=== PATIENT | female | born 1960 | race Caucasian/White ===

== ENCOUNTER → 2019-03-20 09:24 | Outpatient (CLI) | payer BC, SELFPAY ==
[2019-03-20 10:23] LABS: Add Manual Diff / Slide Review NO; Basophils Absolute Auto 100 /uL (0-100); Eosinophils Absolute Auto 300 /uL (0-450); Eosinophils Percent Auto 5.1 % (2-4); Hematocrit 42.3 % (36-46); Hemoglobin 14.8 g/dL (12.0-16.0); Lymphocytes Absolute Auto 2100 /uL (1100-4500); Lymphocytes Percent Auto 33.1 % (25-40); Mean Corpuscular HGB Conc 34.9 % (30-36); Mean Corpuscular Hemoglobin 31.1 PG (26-34); Monocytes Absolute Auto 500 /uL (0-900); Neutrophils Absolute Auto 3400 /uL (1500-7000); Neutrophils Percent Auto 52.8 % (50-75); Platelet Count 381 X10^3/uL (150-400); Red Blood Cell Count 4.76 X10^6/uL (4.0-5.2); Red Cell Distribution Width 13.9 % (11.6-14.8); White Blood Cell Count 6.3 X10^3/uL (4.5-11.0)
[2019-03-20 10:35] LABS: Alanine Aminotransferase 17 IU/L (<35); Albumin 4.6 g/dL (3.5-5.0); Albumin Globulin Ratio 1.4 (1.0-2.8); Alkaline Phosphatase 86 U/L (38-126); Aspartate Aminotransferase 23 IU/L (14-36); BUN Creatinine Ratio 24.3 (6-22); Bilirubin Total 0.6 mg/dL (0.2-1.3); Blood Urea Nitrogen 17 mg/dL (7-17); Calcium 10.1 mg/dL (8.4-10.2); Carbon Dioxide 25 mmol/L (22-32); Chloride 103 mmol/L (98-107); Estimated Glomerular Filt Rate > 60.0 mL/min (>60); Globulin 3.3 g/dL (1.7-4.1); Glucose 111 mg/dL (70-100); HEMOLYSIS < 15 (0-50); Lipase 104 U/L (23-300); Potassium 4.2 mmol/L (3.4-5.1); Sodium 138 mmol/L (137-145); Total Protein 7.9 g/dL (6.3-8.2)
[2019-03-20 11:03] LABS: Vitamin D 25 Hydroxy (D3) 35.5 ng/mL (30.0-100.0)
[2019-03-20 11:16] LABS: TSH w/ Reflex to FT4 4.23 uIU/mL (0.47-4.68)
[2019-03-20 11:25] LABS: Vitamin B12 655 pg/mL (239-931)
== END ==
PROVIDERS: PCP Family Medicine; Referring Provider Family Medicine; Visit Provider Family Medicine
DX: Z13.220 Encounter for screening for lipoid disorders (principal); Z13.29 Encounter for screening for other suspected endocrine disorder; E55.9 Vitamin D deficiency, unspecified; R53.83 Other fatigue
CPT/HCPCS: 36415; 80053; 82306; 82607; 83690; 84443; 85025

== ENCOUNTER → 2019-12-13 13:44 | Outpatient (CLI) | payer BC, SELFPAY ==
--- NOTE | 2019-12-13 13:45 | DI.RAD.S_ITS ---
PROCEDURE: XR KNEE RT 3V INDICATIONS: L knee pain x 4-5 months, no trauma TECHNIQUE: 3 views of the knee were acquired. COMPARISON: None. FINDINGS: Bones: No fractures or dislocations. No suspicious bony lesions. Mild tricompartmental knee joint narrowing with periarticular osteophyte formation. Soft tissues: No joint effusion. No suspicious soft tissue calcifications. Chondrocalcinosis. IMPRESSION: 1. Mild tricompartmental knee joint degeneration. 2. Chondrocalcinosis. Differential diagnosis includes but is not limited to hemochromatosis, hyperparathyroidism and CPPD. Dictated by: Myles MCCRACKEN Interpreted: Arpan Joseph MD on 12/13/2019 at 16:54 Approved by: Arpan Joseph M.D. on 12/13/2019 at 17:37
== END ==
PROVIDERS: PCP Registered Nurse Diabetes Educator; Referring Provider Registered Nurse Diabetes Educator; Visit Provider Registered Nurse Diabetes Educator
DX: M25.562 Pain in left knee (principal); M17.12 Unilateral primary osteoarthritis, left knee; M11.262 Other chondrocalcinosis, left knee
CPT/HCPCS: 73562

== ENCOUNTER → 2019-12-25 08:49 | Outpatient (CLI) | payer BC, SELFPAY ==
[2019-12-25 10:28] LABS: Add Manual Diff / Slide Review NO; Basophils Absolute Auto 100 /uL (0-100); Basophils Percent Auto 1.3 % (0-2); Eosinophils Absolute Auto 300 /uL (0-450); Eosinophils Percent Auto 5.4 % (2-4); Hematocrit 43.5 % (36-46); Hemoglobin 14.9 g/dL (12.0-16.0); Lymphocytes Absolute Auto 2100 /uL (1100-4500); Lymphocytes Percent Auto 39.6 % (25-40); Mean Corpuscular HGB Conc 34.4 % (30-36); Mean Corpuscular Hemoglobin 31.5 PG (26-34); Mean Corpuscular Volume 91.8 fL (80-100); Monocytes Absolute Auto 500 /uL (0-900); Monocytes Percent Auto 8.8 % (3-14); Neutrophils Absolute Auto 2400 /uL (1500-7000); Neutrophils Percent Auto 44.9 % (50-75); Platelet Count 383 X10^3/uL (150-400); Red Blood Cell Count 4.74 X10^6/uL (4.0-5.2); Red Cell Distribution Width 13.7 % (11.6-14.8); White Blood Cell Count 5.3 X10^3/uL (4.5-11.0)
[2019-12-25 10:54] LABS: Hemoglobin A1C% w Est Avg Glu 5.3 % (4.0-6.0)
[2019-12-25 10:59] LABS: Alanine Aminotransferase 14 IU/L (<35); Albumin 4.4 g/dL (3.5-5.0); Albumin Globulin Ratio 1.3 (1.0-2.8); Alkaline Phosphatase 70 U/L (38-126); Aspartate Aminotransferase 24 IU/L (14-36); BUN Creatinine Ratio 21.8 (6-22); Bilirubin Total 0.8 mg/dL (0.2-1.3); Blood Urea Nitrogen 19 mg/dL (7-17); Calcium 9.6 mg/dL (8.4-10.2); Carbon Dioxide 28 mmol/L (22-32); Chloride 106 mmol/L (98-107); Cholesterol 240 mg/dL (140-199); Estimated Glomerular Filt Rate > 60.0 mL/min (>60); Globulin 3.4 g/dL (1.7-4.1); Glucose 103 mg/dL (70-100); HDL Cholesterol 54 mg/dL (40-60); HEMOLYSIS < 15 (0-50); LDL Cholesterol Calculated 169 mg/dL (<100); Phosphorous 3.8 mg/dL (2.5-4.5); Potassium 4.1 mmol/L (3.4-5.1); Sodium 140 mmol/L (137-145); Total Protein 7.8 g/dL (6.3-8.2); Triglycerides 86 mg/dL (35-150)
[2019-12-25 14:43] LABS: HEMOLYSIS < 15 (0-50); Iron 145 ug/dL (37-170)
[2019-12-25 14:54] LABS: Percent Iron Saturation 40 % (15-50); Total Iron Binding Capacity 367 ug/dL (265-497); Transferrin 291 mg/dL (206-381)
[2019-12-25 15:17] LABS: TSH w/ Reflex to FT4 6.68 uIU/mL (0.47-4.68)
[2019-12-25 15:53] LABS: Free T4, Direct Thyroxine 1.04 ng/dL (0.78-2.19)
[2019-12-26 09:10] LABS: Calcium 9.8 mg/dL (8.7-10.2); Parathyroid Hormone, Intact 41 pg/mL (15-65)
== END ==
PROVIDERS: PCP Registered Nurse Diabetes Educator; Referring Provider Registered Nurse Diabetes Educator; Visit Provider Registered Nurse Diabetes Educator
DX: Z00.00 Encounter for general adult medical examination without abnormal findings (principal); M11.20 Other chondrocalcinosis, unspecified site; M25.569 Pain in unspecified knee; R73.01 Impaired fasting glucose
CPT/HCPCS: 36415; 80053; 80061; 82310; 83036; 83540; 83550; 83735; 83970; 84100; 84439; 84443; 85025

== ENCOUNTER → 2020-09-14 10:38 | Outpatient (CLI) | payer BC, SELFPAY ==
[2020-09-14 11:17] LABS: COVID19 -Nasal RAPID Negative (Negative)
== END ==
PROVIDERS: PCP Registered Nurse Diabetes Educator; Visit Provider Student in an Organized Health Care Education/Training Program
DX: J02.9 Acute pharyngitis, unspecified (principal); R09.81 Nasal congestion; Z20.822 Contact with and (suspected) exposure to COVID-19
CPT/HCPCS: 87070; 87077; 87635

== ENCOUNTER → 2020-10-03 11:39 | Outpatient (CLI) | payer BC, SELFPAY ==
[2020-10-03 14:09] LABS: COVID-19 CEPHEID PCR (VTM/NP) Negative (Negative)
== END ==
PROVIDERS: PCP Registered Nurse Diabetes Educator; Referring Provider Registered Nurse; Visit Provider Registered Nurse
DX: Z20.822 Contact with and (suspected) exposure to COVID-19 (principal)
CPT/HCPCS: U0003

== ENCOUNTER → 2020-10-03 12:46 | Outpatient (CLI) | payer BC, SELFPAY ==
--- NOTE | 2020-10-03 12:47 | DI.RAD.S_ITS ---
PROCEDURE: XR CHEST 2V INDICATIONS: chest congestion TECHNIQUE: 2 views of the chest were acquired. COMPARISON: None. FINDINGS: Surgical changes and devices: None. Lungs and pleura: Lungs are clear. No pleural effusions or pneumothorax. Mediastinum: Mediastinal contours are normal. Heart size is normal. Bones and chest wall: No suspicious bony abnormalities. Left shoulder anchors. Soft tissues appear unremarkable. IMPRESSION: No acute cardiopulmonary abnormality. Dictated by: Romeo Aquino M.D. on 10/03/2020 at 13:50 Approved by: Romeo Aquino M.D. on 10/03/2020 at 13:51
== END ==
PROVIDERS: PCP Registered Nurse Diabetes Educator; Referring Provider Registered Nurse; Visit Provider Registered Nurse
DX: R09.89 Other specified symptoms and signs involving the circulatory and respiratory systems (principal); Z20.822 Contact with and (suspected) exposure to COVID-19
CPT/HCPCS: 71046; U0003

== ENCOUNTER → 2021-05-26 10:56 | Outpatient (CLI) | payer BC, SELFPAY | PROVIDERS: PCP Registered Nurse Diabetes Educator; Referring Provider Nurse Practitioner Family; Visit Provider Nurse Practitioner Family | DX: R41.840 Attention and concentration deficit (principal) | CPT/HCPCS: 93005; 93010 ==

== ENCOUNTER 2022-01-06 21:36 | Emergency (ER) | payer BC, SELFPAY ==
[2022-01-06 21:47] VITALS: BP 126/67; PULSE 108; RESP 18; TEMP 36.2; O2SAT 97; BMI 33.3
--- NOTE | 2022-01-06 22:00 | DI.RAD.S_ITS ---
PROCEDURE: XR FOOT LT MIN 3V INDICATIONS: Injury TECHNIQUE: 3 views of the foot were acquired. COMPARISON: None. FINDINGS: Bones: No fractures or dislocations. No suspicious bony lesions. Soft tissues: No tibiotalar joint effusion. Achilles tendon appears normal. IMPRESSION: 1. No fracture or dislocation. Dictated by: Jesus Alberto Ballard M.D. on 01/07/2022 at 0:00 Approved by: Jesus Alberto Ballard M.D. on 01/07/2022 at 0:01
--- NOTE | 2022-01-06 23:35 | ED_ITS ---
HPI - Extremity Injury (Lower) General Chief Complaint: Extremity Injury, Lower Stated Complaint: lt. foot pain due to fall Time Seen by Provider: 01/06/22 23:10 Source: patient Mode of arrival: Wheelchair History of Present Illness HPI Narrative: 61-year-old female nonsmoker with noncontributory medical history presents with her in the chief complaint of an accidental injury to the left side of her foot earlier this evening. She was stepping off of a concrete platform and stepped awkwardly on her foot and thinks maybe she twisted a bit but there was no significant drop or high velocity impact. She has increased pain with ambulation and improvement with rest. She denies any pain in her ankle, lower leg or knee. She denies any prodromal symptoms or other potential cause for her fall. She denies any head, neck or back pain as a consequence of her fall Related Data Home Medications Medication Instructions Recorded Confirmed citalopram 20 mg tablet 20 mg PO DAILY 03/20/19 08/26/21 propranolol 10 mg tablet 10 mg PO BID 11/16/19 08/26/21 Previous Rx's Medication Instructions Recorded levothyroxine 25 mcg tablet 25 mcg PO DAILY #60 tabs 12/27/19 Allergies Allergy/AdvReac Type Severity Reaction Status Date / Time No Known Drug Allergies Allergy Verified 08/26/21 10:46 Review of Systems Review of Systems Narrative: GENERAL: Denies chills, fatigue, malaise, fever, sweats. HEENT: Denies sinus pain, ear pain, sore throat, difficulty swallowing, dizziness. RESPIRATORY: Denies dyspnea, cough, wheezing, hemoptysis, sputum. CARDIOVASCULAR: Denies chest pain, palpitations, orthopnea, edema, GASTROINTESTINAL: Denies nausea, vomiting, abdominal pain, diarrhea, constipation, melena. : Denies dysuria, frequency, incontinence, hematuria, urinary retention. MUSCULOSKELETAL: See HP SKIN: Denies rash, skin lesions, or other NEUROLOGIC: Denies weakness, headache, numbness, change in speech, confusion, seizures, incoordination. PSYCHIATRIC: No concerning psychosocial issues. 12 point review of systems is negative except for those stated above Patient History Medical History Abnormal Pap smear of cervix (~1982) Anxiety (~1994) Chest congestion Chondrocalcinosis Chronic back pain Depression (~1994) Dyslipidemia Fatigue Herpes (~1994) History of gastrointestinal disorder (~2014) History of IBS Impaired fasting blood sugar Knee pain Neck pain, chronic Recurrent sinusitis Shoulder pain (~1987) Subclinical hypothyroidism Trigger finger of right thumb Vision disorder Vitamin deficiency Surgical History Anesthesia History of shoulder surgery (~1991) Family History Mother Hypertension Father No problems noted. Social History Smoking Status: Never smoker alcohol intake: current substance use type: does not use Smoking Status: Never smoker alcohol intake frequency: 3 or more drinks per day Alcohol type: hard liquor Substance Use Type: marijuana Exam Narrative Exam Narrative: GEN: AOx3 and in mild distress EYES: Pupils are equal, round, and reactive to light and accommodation. Extraoccular muscles are intact bilaterally. There is no subconjunctival hemorrhage or exudate. CHEST: Lungs are clear to auscultation bilaterally and free of wheezes, rales, or rhonchi. Heart rate is regular rhythm, there are no murmurs, clicks, rubs, or gallops. There is no chest wall tenderness. ABD: Abdomen is soft and nontender. There is no guarding or rebound. Bowel sounds are normal in all 4 quadrants. There is no mass or organomegaly. EXT: Full but painful range of motion of left foot with small area of pinpoint tenderness and some ecchymosis overlying the cuboid. This is closed, isolated and neurovascularly intact no pain over medial or lateral malleoli, negative squeeze test, no pain at proximal fibula SKIN: Warm, pink, and dry. No erythema or rash Initial Vital Signs Initial Vital Signs: Vital Signs Temperature 97.1 F L 01/06/22 21:47 Pulse Rate 108 H 01/06/22 21:47 Respiratory Rate 18 01/06/22 21:47 Blood Pressure 126/67 01/06/22 21:47 Pulse Oximetry 97 01/06/22 21:47 Oxygen Delivery Method 01/06/22 21:47 Procedures Orthopedic Splinting/Casting Injury #1: Side: left Lower Extremity Injury Location: foot Lower Extremity Immobilizer: post-op shoe Other Orthopedic Equipment: crutches Course Orders Ordered: ED Orders 01/06/22 22:00 XR foot LT min 3V Stat Vital Signs Vital signs: Vital Signs - 8 hr 01/06/22 21:47 01/07/22 00:56 Temperature 97.1 F L Pulse Rate 108 H 90 Respiratory Rate 18 16 Blood Pressure 126/67 124/68 Pulse Oximetry 97 97 Oxygen Delivery Method Room Air Room Air MDM - Extremity Injury (Lower) Imaging Data Extremity x-ray #1: Radiologist's Impression: Close Foot X-Ray (Signed) Jesus Alberto Ballard - 01/06/22 Chest X-Ray (Signed) Romeo Aquino - 10/03/20 Knee X-Ray (Signed) Arpan Joseph - 12/13/19 Launch?[address] [address] XRay Report Signed Patient: Princess Rene MR#: [id number] : 1960 Acct:[id number] Age/Sex: 61 / F Date of Service: 01/06/22 Loc: ED Accession Number: [id number] ?? Procedure: XR foot LT min 3V Ordering Provider: Ramos Ryder D.O. PROCEDURE:? XR FOOT LT MIN 3V ? INDICATIONS:? Injury ? TECHNIQUE:? 3 views of the foot were acquired.? ? COMPARISON:? None. ? FINDINGS:? ? Bones:? No fractures or dislocations.? No suspicious bony lesions.? ? Soft tissues:? No tibiotalar joint effusion.? Achilles tendon appears normal.? ? ? IMPRESSION:? ? 1.? No fracture or dislocation. ? ? Dictated by: Jesus Alberto Ballard M.D. on 01/07/2022 at 0:00 ? ? Approved by: Jesus Alberto Ballard M.D. on 01/07/2022 at 0:01? Discharge Plan Departure Patient Disposition: Home Clinical Impression: Foot injury Instructions: DI for Foot Pain Activity Restrictions/Additional Instructions: *You have been diagnosed with [left foot pain, as we discussed there is no evidence of fracture or dislocation on your x-ray] *What to do: *Please continue to take your regular medications as directed. *Please follow up with your primary care provider in 5-7 days, call for an appointment. Let them know you were seen in the Emergency Department and that we ask that you be seen in follow up. We will electronically transmit a record of today's note if your PCP is in our system *Return to Emergency Department if you should have any new, worsening or concerning symptoms Prescriptions: No Action citalopram 20 mg tablet 20 mg PO DAILY levothyroxine 25 mcg tablet 25 mcg PO DAILY Qty: 60 0RF propranolol 10 mg tablet 10 mg PO BID Referrals: Shar William ARNP [Primary Care Provider] - Visit Report Forms: Patient Portal/API
--- NOTE | 2022-01-07 00:30 | PC.NURSE ---
orthopedic shoe applied to the left foot - tolerated well - instructions for use given
--- NOTE | 2022-01-07 00:40 | PC.NURSE ---
Crutch use demonstrated and discussed with patient and family - appropriate repeat demonstration given
[2022-01-07 00:56] VITALS: BP 124/68; PULSE 90; RESP 16; O2SAT 97
== END 2022-01-07 00:53 | disposition home or self-care (01) ==
PROVIDERS: Emergency Provider Emergency Medicine; PCP Registered Nurse Diabetes Educator
DX: S99.922A Unspecified injury of left foot, initial encounter (principal); X50.1XXA Overexertion from prolonged static or awkward postures, initial encounter
CPT/HCPCS: 73630; 99282; 99283

== ENCOUNTER → 2023-01-05 13:03 | Outpatient (CLI) | payer BC, SELFPAY ==
--- NOTE | 2023-01-05 13:05 | DI.RAD.S_ITS ---
PROCEDURE: XR KNEE LT 3V INDICATIONS: eval L knee pain TECHNIQUE: 3 views of the knee were acquired. COMPARISON: [facility], CR, XR KNEE RT 3V, 12/13/2019, 13:39. FINDINGS: Bones: No fractures or dislocations. Mild joint space narrowing. Osteophytic lipping. Degenerative changes are similar to 2020. No suspicious bony lesions. Soft tissues: No joint effusion. Chondrocalcinosis. No suspicious soft tissue calcifications. IMPRESSION: [id number] degenerative changes. Chondrocalcinosis. Dictated by: Romeo Aquino M.D. on 01/05/2023 at 16:25 Approved by: Romeo Aquino M.D. on 01/05/2023 at 16:27
[2023-01-05 14:18] LABS: Add Manual Diff / Slide Review NO; Basophils Absolute Auto 0 /uL (0-100); Basophils Percent Auto 0.5 % (0-2); Eosinophils Absolute Auto 600 /uL (0-450); Eosinophils Percent Auto 11.6 % (2-4); Hematocrit 43.5 % (36-46); Hemoglobin 15.1 g/dL (12.0-16.0); Lymphocytes Absolute Auto 1000 /uL (1100-4500); Lymphocytes Percent Auto 18.1 % (25-40); Mean Corpuscular HGB Conc 34.8 % (30-36); Mean Corpuscular Hemoglobin 30.9 PG (26-34); Mean Corpuscular Volume 88.8 fL (80-100); Monocytes Absolute Auto 400 /uL (0-900); Monocytes Percent Auto 7.1 % (3-14); Neutrophils Absolute Auto 3500 /uL (1500-7000); Neutrophils Percent Auto 62.7 % (50-75); Platelet Count 314 X10^3/uL (150-400); Red Cell Distribution Width 13.9 % (11.6-14.8); White Blood Cell Count 5.5 X10^3/uL (4.5-11.0)
[2023-01-05 14:26] LABS: Hemoglobin A1C% w Est Avg Glu 5.6 % (4.0-6.0)
[2023-01-05 14:32] LABS: Erythrocyte Sedimentation Rate 43 MM/HR (0-20)
[2023-01-05 14:50] LABS: Alanine Aminotransferase 32 IU/L (<35); Albumin 4.1 g/dL (3.5-5.0); Albumin Globulin Ratio 1.2 (1.0-2.8); Alkaline Phosphatase 137 U/L (38-126); Aspartate Aminotransferase 44 IU/L (14-36); BUN Creatinine Ratio 16.7 (6-22); Bilirubin Total 0.6 mg/dL (0.2-1.3); Blood Urea Nitrogen 17 mg/dL (7-17); Calcium 9.9 mg/dL (8.4-10.2); Carbon Dioxide 26 mmol/L (22-32); Chloride 96 mmol/L (98-107); Cholesterol 255 mg/dL (140-199); Estimated Glomerular Filt Rate > 60 mL/min (>60); Globulin 3.4 g/dL (1.7-4.1); Glucose 111 mg/dL (80-110); HDL Cholesterol 49 mg/dL (40-60); HEMOLYSIS < 15 (0-50); LDL Cholesterol Calculated 176 mg/dL (<100); Sodium 133 mmol/L (137-145); Total Protein 7.5 g/dL (6.3-8.2); Triglycerides 149 mg/dL (35-150)
[2023-01-05 15:04] LABS: C-Reactive Protein Quant 14.5 mg/dL (<1.0)
[2023-01-05 15:05] LABS: Free T4, Direct Thyroxine 1.32 ng/dL (0.78-2.19)
[2023-01-05 15:18] LABS: Thyroid Stimulating Hormone 13.8 uIU/mL (0.47-4.68)
[2023-01-05 15:44] LABS: Appearance Urine UA CLEAR; Bilirubin Urine UA 2+ (NEGATIVE); Color Urine UA YELLOW; Glucose Urine UA NEGATIVE (Negative); Ketones Urine UA 1+ (NEGATIVE); Leukocyte Esterase Urine UA NEGATIVE (NEGATIVE); Nitrite Urine UA NEGATIVE (Negative); Occult Blood Urine UA NEGATIVE (Negative); Protein Urine UA 2+ (Negative); Specific Gravity Urine UA >=1.030 (1.000-1.035)
[2023-01-05 16:01] LABS: RBC Urine 0-1/HPF (0-5/HPF); WBC Urine 0-1/HPF (0-5/HPF)
[2023-01-05 16:02] LABS: Bacteria Urine Many (>30); Culture Indicated Urine Cult Not Indicated; Squamous Epithelial Cell Urine 5-10 /HPF (0-5/HPF)
[2023-01-05 21:02] LABS: Ictotest Urine Positive (Negative)
== END ==
PROVIDERS: PCP Registered Nurse Diabetes Educator; Referring Provider Registered Nurse Diabetes Educator; Visit Provider Registered Nurse Diabetes Educator
DX: M11.262 Other chondrocalcinosis, left knee (principal); M25.562 Pain in left knee; E78.5 Hyperlipidemia, unspecified; E03.9 Hypothyroidism, unspecified; Z00.00 Encounter for general adult medical examination without abnormal findings; R73.01 Impaired fasting glucose; R61 Generalized hyperhidrosis
CPT/HCPCS: 36415; 73562; 80053; 80061; 81001; 83036; 84439; 84443; 85025; 85651; 86140

== ENCOUNTER → 2023-01-06 14:24 | Outpatient (CLI) | payer BC, SELFPAY ==
[2023-01-06 15:50] LABS: Add Manual Diff / Slide Review NO; Basophils Absolute Auto 0 /uL (0-100); Basophils Percent Auto 0.8 % (0-2); Eosinophils Absolute Auto 700 /uL (0-450); Eosinophils Percent Auto 14.2 % (2-4); Hematocrit 41.4 % (36-46); Hemoglobin 14.5 g/dL (12.0-16.0); Lymphocytes Absolute Auto 1700 /uL (1100-4500); Lymphocytes Percent Auto 33.8 % (25-40); Mean Corpuscular HGB Conc 35.1 % (30-36); Mean Corpuscular Hemoglobin 30.6 PG (26-34); Mean Corpuscular Volume 87.3 fL (80-100); Monocytes Absolute Auto 600 /uL (0-900); Monocytes Percent Auto 11.4 % (3-14); Neutrophils Absolute Auto 2000 /uL (1500-7000); Neutrophils Percent Auto 39.8 % (50-75); Platelet Count 315 X10^3/uL (150-400); Red Blood Cell Count 4.74 X10^6/uL (4.0-5.2); Red Cell Distribution Width 13.7 % (11.6-14.8); White Blood Cell Count 5.1 X10^3/uL (4.5-11.0)
[2023-01-06 16:04] LABS: Alanine Aminotransferase 37 IU/L (<35); Albumin 4.1 g/dL (3.5-5.0); Albumin Globulin Ratio 1.3 (1.0-2.8); Alkaline Phosphatase 135 U/L (38-126); Aspartate Aminotransferase 48 IU/L (14-36); BUN Creatinine Ratio 16.5 (6-22); Bilirubin Total 0.5 mg/dL (0.2-1.3); Blood Urea Nitrogen 14 mg/dL (7-17); Calcium 9.8 mg/dL (8.4-10.2); Carbon Dioxide 22 mmol/L (22-32); Chloride 98 mmol/L (98-107); Estimated Glomerular Filt Rate > 60 mL/min (>60); Globulin 3.2 g/dL (1.7-4.1); Glucose 104 mg/dL (80-110); HEMOLYSIS < 15 (0-50); Potassium 4.5 mmol/L (3.4-5.1); Sodium 131 mmol/L (137-145); Total Protein 7.3 g/dL (6.3-8.2)
[2023-01-06 16:08] LABS: Rheumatoid Factor 9.2 IU/mL (<12.0)
[2023-01-06 17:47] LABS: Appearance Urine UA SL CLOUDY; Bilirubin Urine UA NEGATIVE (NEGATIVE); Color Urine UA YELLOW; Glucose Urine UA NEGATIVE (Negative); Ketones Urine UA NEGATIVE (NEGATIVE); Leukocyte Esterase Urine UA NEGATIVE (NEGATIVE); Nitrite Urine UA NEGATIVE (Negative); Occult Blood Urine UA NEGATIVE (Negative); Protein Urine UA NEGATIVE (Negative); Urobilinogen Urine UA 0.2 E.U./dL (0.2)
[2023-01-06 17:51] LABS: pH Urine UA 5.5 (4.5-8.0)
[2023-01-06 17:54] LABS: Bacteria Urine Moderate (10-30); Culture Indicated Urine Cult Not Indicated; RBC Urine 0-1/HPF (0-5/HPF); Squamous Epithelial Cell Urine 5-10 /HPF (0-5/HPF); WBC Urine 0-1/HPF (0-5/HPF)
[2023-01-07 16:39] LABS: HIV 1 & 2 Ab/Ag 4th Gen Combo NEGATIVE (NEGATIVE)
[2023-01-08 16:36] LABS: Interpretation Negative (Negative)
[2023-01-08 22:08] LABS: Thyroid Peroxidase Antibodies 18 IU/mL (0-34)
[2023-01-09 19:10] LABS: Deamidated Gliadin Ab IgA 10 units (0-19); Deamidated Gliadin Ab IgG 2 units (0-19); Immunoglobulin A,Qn 192 mg/dL (87-352); t-Transglutaminase IgA <2 U/mL (0-3)
[2023-01-12 10:09] LABS: ANA Screen, IFA Negative (.)
[2023-01-12 12:45] LABS: CCP Antibodies IgG/IgA 1 units (0-19)
== END ==
PROVIDERS: PCP Registered Nurse Diabetes Educator; Referring Provider Registered Nurse Diabetes Educator; Visit Provider Registered Nurse Diabetes Educator
DX: R79.82 Elevated C-reactive protein (CRP) (principal); D72.10 Eosinophilia, unspecified; M25.50 Pain in unspecified joint; R21 Rash and other nonspecific skin eruption; R74.01 Elevation of levels of liver transaminase levels; R14.2 Eructation; E03.9 Hypothyroidism, unspecified; E87.1 Hypo-osmolality and hyponatremia
CPT/HCPCS: 36415; 80053; 81001; 82784; 83013; 83516; 85025; 86038; 86200; 86376; 86430; 87389

== ENCOUNTER → 2023-01-15 08:56 | Outpatient (CLI) | payer BC, SELFPAY ==
[2023-01-15 10:19] LABS: Add Manual Diff / Slide Review NO; Basophils Absolute Auto 0 /uL (0-100); Basophils Percent Auto 0.2 % (0-2); Eosinophils Absolute Auto 500 /uL (0-450); Eosinophils Percent Auto 6.8 % (2-4); Hematocrit 37.3 % (36-46); Hemoglobin 12.9 g/dL (12.0-16.0); Lymphocytes Absolute Auto 2300 /uL (1100-4500); Lymphocytes Percent Auto 29.1 % (25-40); Mean Corpuscular HGB Conc 34.7 % (30-36); Mean Corpuscular Hemoglobin 30.4 PG (26-34); Mean Corpuscular Volume 87.7 fL (80-100); Monocytes Absolute Auto 700 /uL (0-900); Monocytes Percent Auto 9.2 % (3-14); Neutrophils Absolute Auto 4300 /uL (1500-7000); Neutrophils Percent Auto 54.7 % (50-75); Platelet Count 604 X10^3/uL (150-400); Red Blood Cell Count 4.25 X10^6/uL (4.0-5.2); Red Cell Distribution Width 14.1 % (11.6-14.8); White Blood Cell Count 7.9 X10^3/uL (4.5-11.0)
[2023-01-15 10:36] LABS: Appearance Urine UA CLEAR; Bilirubin Urine UA NEGATIVE (NEGATIVE); Color Urine UA YELLOW; Glucose Urine UA NEGATIVE (Negative); Ketones Urine UA NEGATIVE (NEGATIVE); Leukocyte Esterase Urine UA NEGATIVE (NEGATIVE); Nitrite Urine UA NEGATIVE (Negative); Occult Blood Urine UA NEGATIVE (Negative); Protein Urine UA NEGATIVE (Negative); Urobilinogen Urine UA 0.2 E.U./dL (0.2)
[2023-01-15 10:36] LABS: Alanine Aminotransferase 25 IU/L (<35); Albumin 3.7 g/dL (3.5-5.0); Albumin Globulin Ratio 1.3 (1.0-2.8); Alkaline Phosphatase 106 U/L (38-126); Aspartate Aminotransferase 28 IU/L (14-36); BUN Creatinine Ratio 25.4 (6-22); Bilirubin Total 0.6 mg/dL (0.2-1.3); Blood Urea Nitrogen 17 mg/dL (7-17); C-Reactive Protein Quant 0.8 mg/dL (<1.0); Calcium 9.7 mg/dL (8.4-10.2); Carbon Dioxide 27 mmol/L (22-32); Chloride 102 mmol/L (98-107); Creatine Kinase 49 U/L (30-135); Estimated Glomerular Filt Rate > 60 mL/min (>60); Globulin 2.9 g/dL (1.7-4.1); Glucose 109 mg/dL (80-110); HEMOLYSIS < 15 (0-50); Lipase 310 U/L (23-300); Potassium 4.6 mmol/L (3.4-5.1); Sodium 134 mmol/L (137-145); Total Protein 6.6 g/dL (6.3-8.2)
[2023-01-15 10:43] LABS: Erythrocyte Sedimentation Rate 34 MM/HR (0-20); Troponin I < 0.012 ng/mL (0.01-0.034)
[2023-01-15 10:56] LABS: Bacteria Urine None Seen; Culture Indicated Urine Cult Not Indicated; RBC Urine None Seen (0-5/HPF); Squamous Epithelial Cell Urine 0-1 /HPF (0-5/HPF); WBC Urine None Seen (0-5/HPF)
[2023-01-16 11:03] LABS: EBV Ab VCA, IgG >600.0 U/mL (0.0-17.9); EBV EBNA Antibody IgG > 600.0 U/mL (0.0-17.9); EBV Early Antigen AB,IgG 50.8 U/mL (0.0-8.9); EBV Nuclear Antigen Ab IgG >600.0 U/mL (0.0-17.9); EBV Virus IgG Ab > 600.0 U/mL (0.0-17.9); EBV Virus IgM Ab < 36.0 U/mL (0.0-35.9); HBsAg Screen Negative (Negative); Hepatitis A Antibody IgM Negative (Negative); Hepatitis B Core Antibody IgM Negative (Negative); Hepatitis C Antibody Non Reactive (Non Reactive)
[2023-01-17 10:37] LABS: EBV Ab VCA, IgM <36.0 U/mL (0.0-35.9)
== END ==
PROVIDERS: PCP Registered Nurse Diabetes Educator; Referring Provider Registered Nurse Diabetes Educator; Visit Provider Registered Nurse Diabetes Educator
DX: R21 Rash and other nonspecific skin eruption (principal); M25.50 Pain in unspecified joint; D72.10 Eosinophilia, unspecified; R79.82 Elevated C-reactive protein (CRP); R74.01 Elevation of levels of liver transaminase levels; R61 Generalized hyperhidrosis; R73.01 Impaired fasting glucose; E78.5 Hyperlipidemia, unspecified; E03.9 Hypothyroidism, unspecified; Z00.00 Encounter for general adult medical examination without abnormal findings; R03.0 Elevated blood-pressure reading, without diagnosis of hypertension
CPT/HCPCS: 36415; 80053; 80074; 81001; 82550; 83690; 84484; 85025; 85651; 86140; 86644; 86645; 86663; 86664; 86665; 86790; 87040

== ENCOUNTER → 2023-02-22 16:34 | Outpatient (CLI) | payer BC, SELFPAY ==
[2023-02-22 17:18] LABS: Influenza A - CEPHEID Flu A NEGATIVE (NEGATIVE); Influenza B - CEPHEID Flu B NEGATIVE (NEGATIVE); Respiratory Syncytial Virus Negative (Negative)
[2023-02-22 17:54] LABS: COVID-19 CEPHEID 4-PLEX PCR Negative (Negative)
== END ==
PROVIDERS: PCP Registered Nurse Diabetes Educator; Visit Provider Physician Assistant
DX: R05.1 Acute cough (principal)
CPT/HCPCS: 0241U

== ENCOUNTER → 2024-03-29 07:29 | Outpatient (CLI) | payer BC, SELFPAY ==
[2024-03-29 08:04] LABS: Add Manual Diff / Slide Review NO; Basophils Absolute Auto 100 /uL (0-100); Basophils Percent Auto 1.2 % (0-2); Eosinophils Absolute Auto 400 /uL (0-450); Eosinophils Percent Auto 6.1 % (2-4); Hematocrit 44.2 % (36-46); Hemoglobin 15.4 g/dL (12.0-16.0); Lymphocytes Absolute Auto 2400 /uL (1100-4500); Lymphocytes Percent Auto 37.7 % (25-40); Mean Corpuscular HGB Conc 34.9 % (30-36); Mean Corpuscular Hemoglobin 31.3 PG (26-34); Mean Corpuscular Volume 89.7 fL (80-100); Monocytes Absolute Auto 500 /uL (0-900); Neutrophils Absolute Auto 3000 /uL (1500-7000); Platelet Count 412 X10^3/uL (150-400); Red Blood Cell Count 4.93 X10^6/uL (4.0-5.2); Red Cell Distribution Width 13.8 % (11.6-14.8); White Blood Cell Count 6.5 X10^3/uL (4.5-11.0)
[2024-03-29 08:14] LABS: Hemoglobin A1C% w Est Avg Glu 5.3 % (4.0-6.0)
[2024-03-29 08:24] LABS: Alanine Aminotransferase 24 IU/L (<35); Albumin 4.5 g/dL (3.5-5.0); Albumin Globulin Ratio 1.6 (1.0-2.8); Alkaline Phosphatase 70 U/L (38-126); Aspartate Aminotransferase 28 IU/L (14-36); BUN Creatinine Ratio 14.3 (6-22); Bilirubin Total 0.6 mg/dL (0.2-1.3); Blood Urea Nitrogen 13 mg/dL (7-17); Calcium 9.9 mg/dL (8.4-10.2); Carbon Dioxide 27 mmol/L (22-32); Chloride 101 mmol/L (98-107); Cholesterol 264 mg/dL (140-199); Estimated Glomerular Filt Rate > 60 mL/min (>60); Globulin 2.8 g/dL (1.7-4.1); Glucose 123 mg/dL (80-110); HDL Cholesterol 58 mg/dL (40-60); HEMOLYSIS < 15 (0-50); LDL Cholesterol Calculated 184 mg/dL (<100); Potassium 4.8 mmol/L (3.4-5.1); Sodium 134 mmol/L (137-145); Total Protein 7.3 g/dL (6.3-8.2); Triglycerides 110 mg/dL (35-150)
[2024-03-29 08:40] LABS: Free T4, Direct Thyroxine 0.91 ng/dL (0.78-2.19)
[2024-03-29 08:54] LABS: Thyroid Stimulating Hormone 4.41 uIU/mL (0.47-4.68)
== END ==
PROVIDERS: PCP Registered Nurse Diabetes Educator; Referring Provider Registered Nurse Diabetes Educator; Visit Provider Registered Nurse Diabetes Educator
DX: R73.01 Impaired fasting glucose (principal); E03.9 Hypothyroidism, unspecified; E78.5 Hyperlipidemia, unspecified
CPT/HCPCS: 36415; 80053; 80061; 83036; 84439; 84443; 85025

== ENCOUNTER 2024-06-06 19:20 | Emergency (ER) | payer OTHER, BC, SELFPAY ==
[2024-06-06] VITALS (19 sets, daily range): BP systolic 141–205; BP diastolic 73–120; PULSE 79–91; RESP 15–33; TEMP 36.7; O2SAT 92–97; BMI 35.7
--- NOTE | 2024-06-06 19:50 | DI.RAD.S_ITS ---
PROCEDURE: XR SHOULDER LT MIN 2V INDICATIONS: left shoulder dislocation TECHNIQUE: 2 views of the shoulder were acquired. COMPARISON: None. FINDINGS: Bones: Anterior dislocation of the glenohumeral joint. Possible Sachs lesion at the posterior superior humeral head. Multiple surgical anchors are seen in the glenoid. [id number]-zr-[id number] degenerative changes at the acromioclavicular joint. Soft tissues: No suspicious soft tissue calcifications. IMPRESSION: Anterior glenohumeral dislocation. Recommend correlation with postreduction images to evaluate for fracture. Approved by: Kip Valentine M.D. on 06/06/2024 at 20:20
--- NOTE | 2024-06-06 20:22 | PC.NURSE ---
Pt states that this is the 6th or 7th time she has dislocated her left shoulder
--- NOTE | 2024-06-06 20:48 | ED.UPPEXIN ---
HPI - Extremity Injury (Upper) General Chief Complaint: Extremity Injury, Upper Stated Complaint: dislocated lt shoulder Time Seen by Provider: 06/06/24 20:48 Source: patient Mode of arrival: Ambulatory History of Present Illness HPI narrative: 63-year-old female with a past medical history of hyperlipidemia, comes into the ED from home for evaluation of left shoulder pain. Patient states that she was walking a dog and was pulled too hard and felt like her shoulder dislocated, she states that she has had history of this, states this is the 6th time this has happened. She states that she had a surgery to repair this 20 years ago, denies any other injuries at this time. She states that in the past they have given her propofol to do this but she had a bad reaction she states that she is not really sure what it was, at bedside states that last time the ER doctor just told her next time not to use performed. But they do not know what the actual issue was. Related Data Home Medications Medication Instructions Recorded Confirmed dextroamphetamine-amphetamine 20 20 mg PO BID 01/12/23 05/17/24 mg tablet propranolol 20 mg tablet 20 - 60 mg PO DAILY PRN anxiety 01/12/23 05/17/24 cariprazine 1.5 mg capsule 1.5 mg PO DAILY 07/30/23 05/17/24 (Vraylar) citalopram 20 mg tablet 20 mg PO DAILY 05/17/24 05/17/24 Previous Rx's Medication Instructions Recorded sodium,potassium,mag sulfates 17.5 See Rx Instructions PO .COMPLEX 12/29/23 gram-3.13 gram-1.6 gram oral soln #354 mL (Suprep Bowel Prep Kit) Semaglutide 1mg/mL See Rx Instructions .Route 05/19/24 .COMPLEX #2 mL Allergies Allergy/AdvReac Type Severity Reaction Status Date / Time lorazepam Allergy Verified 06/06/24 19:52 propofol AdvReac Verified 06/06/24 19:53 Review of Systems Review of Systems Narrative: General: Denies fever, chills, weight loss HEENT: Denies headache, eye drainage, eye irritation, head trauma, sore throat, voice change Cardiovascular: Denies any chest pain, palpitations, tachycardia Respiratory: Denies any shortness of breath, cough, wheeze, stridor GI/: Denies any abdominal pain, nausea, vomiting, diarrhea, bright red blood per rectum, melanotic stools, urinary frequency, urinary retention, dysuria, hematuria MSK: Left shoulder pain Skin: Denies any rashes, lesions, discoloration Neuro: Denies any headache, lightheadedness, dizziness, fainting, weakness Psych: Denies SI/HI Patient History Medical History Recurrent sinusitis Chest congestion Neck pain, chronic Knee pain Dyslipidemia Subclinical hypothyroidism Chondrocalcinosis Impaired fasting blood sugar Fatigue Vitamin deficiency Trigger finger of right thumb History of IBS Vision disorder Depression (~1994) Anxiety (~1994) Shoulder pain (~1987) Chronic back pain Herpes (~1994) Abnormal Pap smear of cervix (~1982) History of gastrointestinal disorder (~2014) Surgical History Anesthesia History of shoulder surgery (~1991) Family History Mother Hypertension Father No problems noted. Social History alcohol intake: current substance use type: does not use alcohol intake frequency: 3 or more drinks per day Alcohol type: hard liquor Exam Narrative Exam Narrative: General: Cooperative, well-developed, not in acute distress HEENT: Normocephalic, atraumatic, PERRLA, normal sclera, eyelids normal Neck: Active full range of motion, atraumatic Chest: Normal to inspection, negative crepitus, no overlying erythema ecchymosis Respiratory: Normal respiratory effort, not in acute respiratory distress, clear to auscultation bilaterally negative cough, wheeze, tachypnea, rhonchi, rales Cardiology: Regular rate rhythm negative gallop, murmur, rubs GI/: No tenderness to palpation, soft, non rigid, normal to inspection, exam deferred MSK: Patient with left arm held in adduction, neurovascularly intact decreased range of motion secondary to pain Skin: No rashes or lesions noted Neuro: Alert awake oriented x3, moves all 4 extremities spontaneously, cranial nerves intact, able to answer all questions appropriately follows commands appropriately Psych: Cooperative, negative suicidal or homicidal ideations Initial Vital Signs Initial Vital Signs: Vital Signs Temperature 98.1 F 06/06/24 19:43 Pulse Rate 82 06/06/24 19:43 Respiratory Rate 17 06/06/24 19:43 Blood Pressure 146/77 H 06/06/24 19:43 Pulse Oximetry 97 06/06/24 19:43 Oxygen Delivery Method Room Air 06/06/24 19:43 Procedures Orthopedic Joint Reduction Joint #1: Time of procedure: : Time Out Performed: Yes Side: left Joint Reduction Location: shoulder Analgesia: procedural sedation Amount of anesthesic used (mL): 150 Shoulder Technique Used (if applicable): traction/counter-traction Technique used: traction/counter-traction Post-reduction neuro exam: intact Post-reduction vascular: intact Post Reduction X-Ray Obtained: Yes Post Reduction X-Ray Results: reduced Splint Applied: No Patient Tolerated Procedure: Well Procedural Sedation Time of procedure: : Consent signed: Yes Time out performed: Yes Indication: fracture/dislocation reduction ASA Class: II Mallampati Airway Classification: Class II Time of Last PO Intake: 18:00 Preparation: cardiac monitor technician applied, pulse oximeter, supplemental O2 applied, suction/airway equipment at bedside and IV secured Ketamine dose (mg): 150 ED Sedation Level: Moderate (Concious) Patient Tolerated Procedure: Well Complications: hypoxia Interventions: Airway repositioned and Oxygen applied Course Orders Ordered: ED Orders 06/06/24 19:50 XR shoulder LT 2+ views Stat 06/06/24 21:21 XR shoulder LT 2+ views Stat Discontinued Medications Ketamine HCl (Ketamine 500 Mg/5 Ml Inj) 200 mg IV NOW ONE Stop: 06/06/24 20:58 Last Admin: 06/06/24 21:07 Dose: 200 mg Documented By: Ondansetron HCl (Ondansetron 4 Mg/2 Ml Inj) 4 mg IV NOW ONE Stop: 06/06/24 21:52 Last Admin: 06/06/24 21:54 Dose: 4 mg Documented By: Ondansetron HCl (Ondansetron 4 Mg/2 Ml Inj) 4 mg IV NOW ONE Stop: 06/06/24 22:21 Last Admin: 06/06/24 22:23 Dose: 4 mg Documented By: AB Vital Signs Vital signs: Vital Signs - 8 hr 06/06/24 19:43 06/06/24 21:13 06/06/24 21:15 Temperature 98.1 F Pulse Rate 82 90 83 Respiratory Rate 17 Blood Pressure 146/77 H Pulse Oximetry 97 97 96 Oxygen Delivery Method Room Air Oxygen Flow Rate 06/06/24 21:18 06/06/24 21:18 06/06/24 21:20 Temperature Pulse Rate 85 87 Respiratory Rate 18 16 Blood Pressure 149/81 H Pulse Oximetry 96 97 Oxygen Delivery Method Oxygen Flow Rate 06/06/24 21:25 06/06/24 21:25 06/06/24 21:30 Temperature Pulse Rate 86 90 Respiratory Rate 24 21 Blood Pressure 159/89 H Pulse Oximetry 97 94 Oxygen Delivery Method Oxygen Flow Rate 2 06/06/24 21:30 06/06/24 21:35 06/06/24 21:36 Temperature Pulse Rate 90 90 Respiratory Rate 25 H 22 Blood Pressure 205/108 H Pulse Oximetry 94 93 Oxygen Delivery Method Oxygen Flow Rate 06/06/24 21:36 06/06/24 21:38 06/06/24 21:40 Temperature Pulse Rate 91 H Respiratory Rate 16 Blood Pressure 157/106 H 165/92 H Pulse Oximetry Oxygen Delivery Method Oxygen Flow Rate 06/06/24 21:40 06/06/24 21:45 06/06/24 21:45 Temperature Pulse Rate 89 85 Respiratory Rate 15 19 Blood Pressure 152/91 H Pulse Oximetry 94 94 Oxygen Delivery Method Oxygen Flow Rate 06/06/24 21:50 06/06/24 21:50 Temperature Pulse Rate 84 Respiratory Rate 22 Blood Pressure 155/80 H Pulse Oximetry 92 Oxygen Delivery Method Oxygen Flow Rate MDM - Extremity Injury (Upper) Differential Diagnosis Differential diagnosis: Likely other (Dislocation, fracture) Lab Data Labs: Point of Care Testing Test Results Not applicable Imaging Data Extremity x-ray #1: Radiologist's Impression: [address] [address] XRay Report Signed Patient: Princess Rene MR#: [id number] : 1960 Acct:[id number] Age/Sex: 63 / F Date of Service: 06/06/24 Loc: ED Accession Number: [id number] Procedure: XR shoulder LT 2+ views Ordering Provider: Shane Flores D.O. PROCEDURE: XR SHOULDER LT MIN 2V INDICATIONS: left shoulder dislocation TECHNIQUE: 2 views of the shoulder were acquired. COMPARISON: None. FINDINGS: Bones: Anterior dislocation of the glenohumeral joint. Possible Sachs lesion at the posterior superior humeral head. Multiple surgical anchors are seen in the glenoid. Yvnx-am-cvjouhsp degenerative changes at the acromioclavicular joint. Soft tissues: No suspicious soft tissue calcifications. IMPRESSION: Anterior glenohumeral dislocation. Recommend correlation with postreduction images to evaluate for fracture. Postreduction shoulder x-ray: Radiologist's Impression: [address] [address] XRay Report Signed Patient: Princess Rene MR#: [id number] : 1960 Acct:[id number] Age/Sex: 63 / F Date of Service: 06/06/24 Loc: ED Accession Number: [id number] Procedure: XR shoulder LT 2+ views Ordering Provider: Shane Flores D.O. PROCEDURE: XR SHOULDER LT MIN 2V INDICATIONS: post reduction TECHNIQUE: 2 views of the shoulder were acquired. COMPARISON: [facility], , XR SHOULDER LT MIN 2V, 06/06/2024, 19:54. FINDINGS/IMPRESSION: Adequate glenohumeral alignment, status post reduction. No displaced fracture. Dictated by: Will oSto M.D. on 06/06/2024 at 22:04 Approved by: Will Soto M.D. on 06/06/2024 at 22:06 [facility] Narrative Medical decision making narrative: 63-year-old female with a history of hypertension hyperlipidemia hypothyroidism presenting for shoulder dislocation, she states that earlier today she was walking her dog the dog yanked her and there shoulder dislocated, she states that this is her 7th time in her life, had a surgery to prevent this several years ago, she states that previously propofol has caused a ?bad reaction therefore ketamine was used for procedural sedation shoulder reduction. Consent was obtained. 150 mg of IV ketamine was given, traction counter traction was performed with adequate reduction of the shoulder. Patient with neurovascularly intact upper extremity she was sent home with a sling as well as analgesia and antiemetics she was instructed follow up with primary care and orthopedic surgery in outpatient setting she was given strict return precautions she verbalized understanding of this and agrees to being discharged home with outpatient follow up Discharge Plan Departure Patient Disposition: Home Clinical Impression: Dislocation of shoulder Instructions: DI for Shoulder Dislocation Activity Restrictions/Additional Instructions: Please follow up with your primary care doctor and your orthopedic surgery Please read the discharge instructions sheet carefully and bring all papers to all doctor follow-up visits, as it may contain information that your doctor may want to see. Disease processes change and evolve, if your symptoms worsen or if you develop any new symptoms that are concerning to you please return for evaluation. Your evaluation today does not show any evidence of any life-threatening/serious illnesses requiring admission to the hospital or surgery. Please follow-up with your doctor for re-evaluation in approximately 1 day. Seek immediate medical attention for any worrisome symptoms. *If you do not have a primary care provider please contact the [facility] Resource line at [phone]. They will ask some questions about your medical history and help get you set up with a doctor in the community. Prescriptions: No Action Vraylar 1.5 mg capsule 1.5 mg PO DAILY sodium,potassium,mag sulfates [Suprep Bowel Prep Kit] 17.5-3.13-1.6 gram recon soln See Rx Instructions PO .COMPLEX Qty: 354 0RF Rx Instructions: take as directed by Physician dextroamphetamine-amphetamine 20 mg tablet 20 mg PO BID Rx Instructions: Being seen by Judy Read for this medication propranolol 20 mg tablet 20 - 60 mg PO DAILY PRN (Reason: anxiety) citalopram 20 mg tablet 20 mg PO DAILY Semaglutide 1mg/mL See Rx Instructions .ROUTE .COMPLEX Qty: 2 3RF Rx Instructions: 0.25 mg weekly SQ for 4 weeks, then increase to 0.5 mg weekly. OK to compound. Referrals: Shar William ARNP [Primary Care Provider] - Barney Mishra MD [Physician] - 3-5 days Stand Alone Forms: Patient Portal/API/Survey
[2024-06-06] MEDS: KETAMINE 500 MG/5 ML INJ 200 MG IV (21:07)
--- NOTE | 2024-06-06 21:21 | DI.RAD.S_ITS ---
PROCEDURE: XR SHOULDER LT MIN 2V INDICATIONS: post reduction TECHNIQUE: 2 views of the shoulder were acquired. COMPARISON: [facility], CR, XR SHOULDER LT MIN 2V, 06/06/2024, 19:54. FINDINGS/IMPRESSION: Adequate glenohumeral alignment, status post reduction. No displaced fracture. Dictated by: Will Soto M.D. on 06/06/2024 at 22:04 Approved by: Will Soto M.D. on 06/06/2024 at 22:06
[2024-06-06] MEDS: ONDANSETRON 4 MG/2 ML INJ IV ×2 (21:54→22:23)
--- NOTE | 2024-06-06 21:58 | PC.NURSE ---
Total of 150 mg Ketamine used during procedure wasted remaining 350 mg.
[2024-06-06] MEDS: OXYCODONE/APAP 5/325 PREPACK 1 BOTTLE MISC (22:53)
[2024-06-06] MEDS: ONDANSETRON 4 MG ODT PREPACK 1 BOTTLE MISC (22:53)
== END 2024-06-06 23:03 | disposition home or self-care (01) ==
PROVIDERS: Emergency Provider Student in an Organized Health Care Education/Training Program; PCP Registered Nurse Diabetes Educator
DX: S43.005A Unspecified dislocation of left shoulder joint, initial encounter (principal); X58.XXXA Exposure to other specified factors, initial encounter
CPT/HCPCS: 23650; 73030; 96374; 96376; 99152; 99284; J2405

== ENCOUNTER → 2024-06-30 12:49 | Outpatient (CLI) | payer OTHER, BC, SELFPAY ==
--- NOTE | 2024-06-30 12:55 | DI.RAD.S_ITS ---
PROCEDURE: FL ARTHROGRAM SHOULDER LT INDICATIONS: SHOULDER DISCLOCATION COMPARISON: [facility], CR, XR SHOULDER LT MIN 2V, 06/06/2024, 21:17. TECHNIQUE: The indications, alternatives, benefits, risks, and complications of the procedure were explained to the patient. Written informed consent was obtained and placed in the chart. The shoulder was examined fluoroscopically and a site for needle placement chosen for entry into the glenohumeral joint from an anterior approach. The skin was prepped and draped in a sterile fashion, and 1% lidocaine infiltrated from skin down to joint capsule. A spinal needle was inserted into the glenohumeral joint, and a small amount of iodinated contrast media injected to confirm intra-articular placement of the needle tip. This was followed by approximately 12 mL dilute solution of a gadolinium containing MR contrast agent. The needle was removed and a dressing was applied. The patient was given postprocedural instructions and sent to the MR suite for MR imaging. FINDINGS: A single fluoroscopic spot image demonstrates intra-articular location of injected iodinated contrast. IMPRESSION: Successful fluoroscopically guided administration of dilute Gadolinium solution into the shoulder joint for MR arthrogram. Approved by: Kip Valentine M.D. on 06/30/2024 at 16:00
--- NOTE | 2024-06-30 12:55 | DI.MRI.S_ITS ---
PROCEDURE: MR SHOULDER LT W CON INDICATIONS: SHOULDER DISCLOCATION TECHNIQUE: After the administration of 12 mL of dilute intra-articular Gadolinium contrast, oblique coronal T1 and T2 spin echo with fat saturation, oblique sagittal T1 spin echo with and without fat saturation, oblique sagittal T2 fast spin echo with fat saturation, axial T1 spin echo with fat saturation through the shoulder. COMPARISON: [facility], CR, XR SHOULDER LT MIN 2V, 06/06/2024, 21:17. FINDINGS: Image quality: Diagnostic Rotator cuff: Bulk: No significant atrophy Teres minor: Intact Supraspinatus: No full-thickness defect. Mild internal signal abnormality representing tendinosis Infraspinatus: Mild tendinosis. Small articular surface defect and the distal tendon Subscapularis: Eoyn-bu-fwjyajwv thickening and interstitial defects. Bones and bursae: GH joint: Filled with contrast. Mild arthrosis. Intra-articular loose bodies are present, for example measuring up to 1.2 cm within the subcoracoid recess AC joint: Xvjl-ak-enpbufia arthrosis Humeral head: Small Hill-Sachs impaction fracture with moderate edema Scapula and acromion: Glenoid postsurgical changes Bursa: Mild bursal edema Capsule: Labrum: Anterior and anterior inferior labral tear. Mild additional signal abnormality of the superior labrum Long head biceps tendon: Normally situated IGHL: Filled with contrast. Rotator interval: Filled with contrast Soft tissues: No axillary adenopathy. Lungs are not well seen. IMPRESSION: Hill-Sachs impaction fracture with moderate edema. Anterior and anterior inferior labral tear representing Bankart injury. Mild signal abnormality of the superior labrum likely additional tear with scarring/remodeling Low-grade rotator cuff tears and tendinopathy, as described above. Glenohumeral intra articular loose bodies, measuring up to 1.2 cm within the subcoracoid recess. Mild glenohumeral and [id number] acromioclavicular arthrosis. Glenoid postsurgical changes. Mild edema in the subacromial/subdeltoid bursa Dictated by: Mario Baez M.D. on 07/01/2024 at 12:32 Approved by: Mario Baez M.D. on 07/01/2024 at 12:39
[2024-06-30] MEDS: LIDOCAINE 1% 20 ML INJ (13:38)
[2024-06-30] MEDS: SODIUM CHLORIDE 0.9 % 20 ML VIAL IV (13:38)
== END ==
LOC: RAD 12:51
PROVIDERS: Family Provider Registered Nurse Diabetes Educator; PCP Registered Nurse Diabetes Educator; Referring Provider Orthopaedic Surgery Adult Reconstructive Orthopaedic Surgery; Visit Provider Orthopaedic Surgery Adult Reconstructive Orthopaedic Surgery
DX: S43.015A Anterior dislocation of left humerus, initial encounter (principal); S42.292A Other displaced fracture of upper end of left humerus, initial encounter for closed fracture; M75.112 Incomplete rotator cuff tear or rupture of left shoulder, not specified as traumatic; S43.492A Other sprain of left shoulder joint, initial encounter; M24.012 Loose body in left shoulder; M19.012 Primary osteoarthritis, left shoulder; R60.0 Localized edema; X58.XXXA Exposure to other specified factors, initial encounter
CPT/HCPCS: 23350; 73040; 73222; Q9967

== ENCOUNTER 2024-09-20 17:00 | Outpatient (RCR) | payer OTHER, BC, SELFPAY ==
--- NOTE | 2024-06-22 15:43 | PT.OIE ---
Current Diagnoses Recurrent dislocation, left shoulder (06/22/24) Past Medical History (Last Updated 06/13/24 @ 10:38 by Chani Barakat PA-C) Abnormal Pap smear of cervix (~1982) Anxiety (~1994) Chest congestion Chondrocalcinosis Chronic back pain Depression (~1994) Dyslipidemia Fatigue Herpes (~1994) History of gastrointestinal disorder (~2014) History of IBS Impaired fasting blood sugar Knee pain Neck pain, chronic Recurrent sinusitis Shoulder pain (~1987) Subclinical hypothyroidism Trigger finger of right thumb Vision disorder Vitamin deficiency Past Surgical History (Last Reviewed 05/19/24 @ 13:54 by SHARONA Colbert) Anesthesia History of shoulder surgery (~1991) Visit Care Team Role Provider Type SHARONA Colbert Family Provider Advanced Fuel Cell Systems Engineer Primary Care Provider Specialty: Medical Address: [address] [place] [address], [facility] Email: [email or web address] Barney Mishra MD Attending Provider Physician Referring Provider Specialty: Orthopedics Orthopedic Surgery Address: [address] [place] [address], [facility] Fax: Email: Physical Therapy Initial Evaluation PT-OP-A Visit Information Start: 06/22/24 15:26 Freq: Status: Active Protocol: Document 06/22/24 15:27 KW (Rec: 06/22/24 15:43 KW Laptop) Out-Patient Physical Therapy Visit Information Visit Information Visit Type Initial Evaluation Visit Start Time 13:45 Visit Stop Time 14:30 Visit Number 1 Evaluation Information Evaluation Date 06/22/24 PT-OP-B Current Condition Start: 06/22/24 15:26 Freq: Status: Active Protocol: Document 06/22/24 15:27 KW (Rec: 06/22/24 15:43 KW Laptop) Current Condition History of Current Condition Onset Date 06/08/2024 Current Complaints L shoulder dislocation and reduction in ED History of Current Condition 63 yo female walking neighbors big dog when it lunged to [place] and pulled on her arm, pulling her to the ground. Seen by Dr. Mishra last Wednesday, referred for shoulder MRI and PT. She is allowed out of her sling as tolerated. 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 Prior Treatments and Tests prior shoulder dislocations with repair Future Testing and Treatments Planned pending MRI in 06/23/2024 Treatment Goals Patient/Caregiver Goals return to full use of L UE PT-OP-C Subjective Start: 06/22/24 15:26 Freq: Status: Active Protocol: Document 06/22/24 15:27 KW (Rec: 06/22/24 15:43 KW Laptop) OP-PT Subjective Patient Comments Patient Reported Progress Improving Patient Questionnaires Quick Dash- Upper Extremity Quick Dash UE Impairment 40 to 59% Impaired (Score 40- 59) OP-PT Pain Assessment Location Left Upper Arm Intensity 5 Scale Used Numeric (0 - 10) Description Aching,Cramping,Dull Frequency Frequent Pain Aggravating Factors ADL's,Activity,Exercise Pain Alleviating Factors Cold,Heat,Medication, Inactivity,Position PT-OP-F Manual Assessment Start: 06/22/24 15:26 Freq: Status: Active Protocol: Document 06/22/24 15:27 KW (Rec: 06/22/24 15:43 KW Laptop) Manual Assessments Soft Tissue Assessment Soft Tissue Mobility Assessment L long head bicep and brachio- radialsis with swelling and stiffness Joint Mobility Assessment Joint Mobility Assessment Gh joint sitting with good congruency PT-OP-J Posture/Palpation/Skin Start: 06/22/24 15:26 Freq: Status: Active Protocol: Document 06/22/24 15:27 KW (Rec: 06/22/24 15:43 KW Laptop) Posture Evaluation Comments Posture Comments FHP, rounded shoulders, increased kyphosis Palpation Assessment Location L bicep Palpation Findings Edema,Soft Tissue Tightness, Spasm,Muscle Guarding PT-OP-K Range of Motion Start: 06/22/24 15:26 Freq: Status: Active Protocol: Document 06/22/24 15:27 KW (Rec: 06/22/24 15:43 KW Laptop) Shoulder Goniometric Range of Motion Shoulder Left Active Shoulder ROM WFL No Testing Position Supine Flexion 100 External Rotation at 45 degrees 45 Abduction Internal Rotation 90 Internal Rotation Behind Back (text) 0 Comments (+) apprehension test Elbow/Forearm Range of Motion Elbow/Forearm Left Active Elbow/Forearm ROM WFL No ROM Testing Position Supine Elbow Flexion (degrees) 10 Comments lacking 10 degrees full ext with full supination full extension when forearm is in pronation Wrist Goniometric Range of Motion Wrist Left Wrist ROM WFL Yes PT-OP-Q Treatments Start: 06/22/24 15:26 Freq: Status: Active Protocol: Document 06/22/24 15:27 KW (Rec: 06/22/24 15:43 KW Laptop) Therapeutic Exercises Supine Exercises shoulder flex ER Side left Resistance 0 Equipment Used 0 Reps/Minutes 10 Comments AROM in supine as tammy FF, ER in plane of scapula as tolerated Sitting Exercises AROM L elbow Side left Resistance 0 Equipment Used 0 Reps/Minutes 10 Comments elbow flex/ext with combined pro/supination from full flexion to full exten Neuro Re-Education Treatment Other Activities KT Tape Comments KT Tape to support L bicep tendon Self-Care/Home Management Treatment Education Patient Education Body Mechanics,Home Exercise Program,Joint Protection,Pain Management,Posture Other Education use of KT tape removal and application PT-OP-T Assessment and Plan Start: 06/22/24 15:26 Freq: Status: Active Protocol: Document 06/22/24 15:27 KW (Rec: 06/22/24 15:43 KW Laptop) Physical Therapy Assessment Rehab Potential Rehabilitation Potential Excellent Evaluation Complexity Number of Personal Factors/Comorbidities 1-2 Number of Body Systems Impaired 1-2 Clinical Presentation at Evaluation Evolving Impairments Impairments Activity Tolerance, Coordination,Edema,Functional Activities,Functional Mobility ,Pain,Posture,ROM,Strength Goals Three Impairment quick Dash 40% Short Term Goal (STG) patient improves quick dash score to 75% STG Duration 6 weeks Two Impairment L shoulder AROM limitations Short Term Goal (STG) pt restores full L shoulder ROM One Impairment lack of HEP Short Term Goal (STG) Indep with HEP STG Duration 6 weeks Assessment Summary Assessment 63 yo female with L bicep pain and (+) apprehension L shoulder ER, pending contrast MRI this Wednesday. Pain and ROM improved after RX but holding off on any other PT/ strengthening until MRI results. Signs and Sx are consistent with partial tear of Bicep tendon. Pt agreed with plan. Physical Therapy Plan Frequency and Duration Frequency of Treatment 2x/Week Duration of treatment (weeks) 12 Plan of Care Start Date 06/22/24 Plan of Care End Date 09/22/24 Therapeutic Interventions Therapeutic Interventions Home Exercise Program,Joint Mobilizations,Manual Therapy, Patient/Caregiver Education, Self-Care/Home Management,Soft Tissue Mobilization,Taping, Therapeutic Activities, Therapeutic Exercises Hold Physical Therapy Reason For Hold pending MRI results
--- NOTE | 2024-06-22 15:44 | PT.OPPOC ---
Physical, Occupational & Speech Therapy At [facility] Current Diagnoses Recurrent dislocation, left shoulder (06/22/24) Visit Care Team Role Provider Type SHARONA Colbert Family Provider Advanced Business Intelligence Developer Primary Care Provider Specialty: Medical Address: [address] [place] [address], [address] Email: [email or web address] Barney Mishra MD Attending Provider Physician Referring Provider Specialty: Orthopedics Orthopedic Surgery Address: [address] [place] [address], [id number] Fax: Email: Plan Of Care PT-OP-B Current Condition Start: 06/22/24 15:26 Freq: Status: Active Protocol: Document 06/22/24 15:27 KW (Rec: 06/22/24 15:43 KW Laptop) Current Condition History of Current Condition Onset Date 06/08/2024 Current Complaints L shoulder dislocation and reduction in ED History of Current Condition 63 yo female walking neighbors big dog when it lunged to [place] and pulled on her arm, pulling her to the ground. Seen by Dr. Mishra last Wednesday, referred for shoulder MRI and PT. She is allowed out of her sling as tolerated. 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 Prior Treatments and Tests prior shoulder dislocations with repair Future Testing and Treatments Planned pending MRI in 06/23/2024 Treatment Goals Patient/Caregiver Goals return to full use of L UE PT-OP-T Assessment and Plan Start: 06/22/24 15:26 Freq: Status: Active Protocol: Document 06/22/24 15:27 KW (Rec: 06/22/24 15:43 KW Laptop) Physical Therapy Assessment Rehab Potential Rehabilitation Potential Excellent Evaluation Complexity Number of Personal Factors/Comorbidities 1-2 Number of Body Systems Impaired 1-2 Clinical Presentation at Evaluation Evolving Impairments Impairments Activity Tolerance, Coordination,Edema,Functional Activities,Functional Mobility ,Pain,Posture,ROM,Strength Goals Three Impairment quick Dash 40% Short Term Goal (STG) patient improves quick dash score to 75% STG Duration 6 weeks Two Impairment L shoulder AROM limitations Short Term Goal (STG) pt restores full L shoulder ROM One Impairment lack of HEP Short Term Goal (STG) Indep with HEP STG Duration 6 weeks Assessment Summary Assessment 63 yo female with L bicep pain and (+) apprehension L shoulder ER, pending contrast MRI this Wednesday. Pain and ROM improved after RX but holding off on any other PT/ strengthening until MRI results. Signs and Sx are consistent with partial tear of Bicep tendon. Pt agreed with plan. Physical Therapy Plan Frequency and Duration Frequency of Treatment 2x/Week Duration of treatment (weeks) 12 Plan of Care Start Date 06/22/24 Plan of Care End Date 09/22/24 Therapeutic Interventions Therapeutic Interventions Home Exercise Program,Joint Mobilizations,Manual Therapy, Patient/Caregiver Education, Self-Care/Home Management,Soft Tissue Mobilization,Taping, Therapeutic Activities, Therapeutic Exercises Hold Physical Therapy Reason For Hold pending MRI results Plan of Care Dates Plan of Care Start Date 06/22/24 Plan of Care End Date 09/22/24 Electronically Signed by: Reina Stanley, PT 06/22/24 [id number] If you are in agreement with this Plan of Care, please return a signed and dated copy. I have reviewed this Plan of Care and certify that the skilled therapy services above are required to meet the patient?s needs. Physician Signature Date Printed Name and Credentials Clinical Instructor Signature Printed Name and Credentials
--- NOTE | 2024-07-27 13:50 | PT.OTN ---
Current Diagnoses Recurrent dislocation, left shoulder (07/27/24) Physical Therapy Treatment Note PT-OP-A Visit Information Start: 06/22/24 15:26 Freq: Status: Active Protocol: Document 07/27/24 13:28 KW (Rec: 07/27/24 13:50 KW Laptop) Out-Patient Physical Therapy Visit Information Visit Information Visit Type Progress Note Visit Start Time 13:00 Visit Stop Time 13:45 Visit Number 2 Evaluation Information Evaluation Date 06/22/24 PT-OP-B Current Condition Start: 06/22/24 15:26 Freq: Status: Active Protocol: Document 07/27/24 13:28 KW (Rec: 07/27/24 13:50 KW Laptop) Current Condition History of Current Condition Onset Date 06/08/2024 Current Complaints L shoulder dislocation and reduction in ED History of Current 63 yo female walking neighbors big dog when it lunged Condition to [place] and pulled on her arm, pulling her to the ground. Seen by Dr. Mishra last Wednesday, referred for shoulder MRI and PT. She is allowed out of her sling as tolerated. 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 No RC tear, NO Treatments Planned bicep tendon tear. Loose body, AC arthritis and Labrum tear. See MRI report in chart. 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 Patient Reported Improving Progress Patient Questionnaires Quick Dash- Upper Extremity Quick Dash UE 40 to 59% Impaired (Score 40-59) Impairment OP-PT Pain Assessment Location Left Upper Arm Intensity 3 Scale Used Numeric (0 - 10) Description Aching,Cramping,Dull Frequency Frequent Pain Aggravating ADL's,Activity,Exercise Factors Pain Alleviating Cold,Heat,Medication,Inactivity,Position Factors PT-OP-F Manual Assessment Start: 06/22/24 15:26 Freq: Status: Active Protocol: Document 07/27/24 13:28 KW (Rec: 07/27/24 13:50 KW Laptop) Manual Assessments Soft Tissue Assessment Soft Tissue Mobility L long head bicep and brachio-radialsis with swelling Assessment and stiffness - improved from 1st visit Joint Mobility Assessment Joint Mobility Gh joint sitting with good congruency Assessment PT-OP-J Posture/Palpation/Skin Start: 06/22/24 15:26 Freq: Status: Active Protocol: Document 07/27/24 13:28 KW (Rec: 07/27/24 13:50 KW Laptop) Posture Evaluation Comments Posture Comments FHP, rounded shoulders, increased kyphosis Palpation Assessment Location L bicep Palpation Findings Edema,Soft Tissue Tightness,Spasm,Muscle Guarding PT-OP-K Range of Motion Start: 06/22/24 15:26 Freq: Status: Active Protocol: Document 07/27/24 13:28 KW (Rec: 07/27/24 13:50 KW Laptop) Shoulder Goniometric Range of Motion Shoulder Left Active Shoulder ROM WFL No Testing Position Supine Flexion 145 Horizontal Abduction 110 External Rotation at 60 45 degrees Abduction Internal Rotation 90 Internal Rotation 0 Behind Back (text) Comments (+) apprehension test - now negative Elbow/Forearm Range of Motion Elbow/Forearm Left Active Elbow/Forearm ROM No WFL ROM Testing Position Supine Elbow Flexion ( 10 degrees) Comments lacking 10 degrees full ext with full supination full extension when forearm is in pronation - NOW with full elbow extension Wrist Goniometric Range of Motion Wrist Left Wrist ROM WFL Yes PT-OP-Q Treatments Start: 06/22/24 15:26 Freq: Status: Active Protocol: Document 07/27/24 13:28 KW (Rec: 07/27/24 13:50 KW Laptop) Therapeutic Exercises Supine Exercises shoulder flex ER Supine Exercise Name cane assisted Side left Resistance 0 Equipment Used 0 Reps/Minutes 10 Comments AROM in supine as tammy FF, ER in plane of scapula as tolerated Sitting Exercises table slides Sitting Exercise table slides Name Reps/Minutes x10 Standing Exercises B UE band Standing Exercise standing B UE extension - not issued for HEP yet Name Equipment Used pink band Reps/Minutes 10 Self-Care/Home Management Treatment Education Patient Education Body Mechanics,Home Exercise Program,Joint Protection, Pain Management,Posture Other Education use of KT tape removal and application PT-OP-T Assessment and Plan Start: 06/22/24 15:26 Freq: Status: Active Protocol: Document 07/27/24 13:28 KW (Rec: 07/27/24 13:50 KW Laptop) Physical Therapy Assessment Rehab Potential Rehabilitation Excellent Potential Evaluation Complexity Number of Personal 1-2 Factors/ Comorbidities Number of Body 1-2 Systems Impaired Clinical Evolving Presentation at Evaluation Impairments Impairments Activity Tolerance,Coordination,Edema,Functional Activities,Functional Mobility,Pain,Posture,ROM, Strength Goals Three Impairment quick Dash 40% Short Term Goal (STG patient improves quick dash score to 75% ) STG Duration 6 weeks Two Impairment L shoulder AROM limitations Short Term Goal (STG pt restores full L shoulder ROM ) One Impairment lack of HEP Short Term Goal (STG Indep with HEP ) STG Duration 6 weeks Assessment Summary Assessment MRI results back. Surgeon would like to do a surgery. thom needs to wait due to work requirements, hasn't been at job long enough. we practiced manikin compressions today just with R UE and L resting on top. This should not be an issue Physical Therapy Plan Frequency and Duration Frequency of 1-2x/Week Treatment Duration of 12 treatment (weeks) Plan of Care Start 06/22/24 Date Plan of Care End 09/22/24 Date Therapeutic Interventions Therapeutic Home Exercise Program,Joint Mobilizations,Manual Interventions Therapy,Patient/Caregiver Education,Self-Care/Home Management,Soft Tissue Mobilization,Taping,Therapeutic Activities,Therapeutic Exercises
--- NOTE | 2024-08-01 16:11 | PT.OTN ---
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 Seen by Dr. Mishra last Wednesday, referred for shoulder MRI and PT. She is allowed out of her sling as tolerated. 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 No RC tear, NO Treatments Planned bicep tendon tear. Loose body, AC arthritis and Labrum tear. See MRI report in chart. Treatment Goals Patient/Caregiver return to full use of L UE Goals PT-OP-C Subjective Start: 06/22/24 15:26 Freq: Status: Active Protocol: Document 08/01/24 14:45 AB (Rec: 08/01/24 16:10 AB Laptop) OP-PT Subjective Patient Comments Patient Comments Patient reports the exercises are going OK. AROM 144 deg start of session PT-OP-F Manual Assessment Start: 06/22/24 15:26 Freq: Status: Active Protocol: Document 07/27/24 13:28 KW (Rec: 07/27/24 13:50 KW Laptop) Manual Assessments Soft Tissue Assessment Soft Tissue Mobility L long head bicep and brachio-radialsis with swelling Assessment and stiffness - improved from 1st visit Joint Mobility Assessment Joint Mobility Gh joint sitting with good congruency Assessment PT-OP-J Posture/Palpation/Skin Start: 06/22/24 15:26 Freq: Status: Active Protocol: Document 07/27/24 13:28 KW (Rec: 07/27/24 13:50 KW Laptop) Posture Evaluation Comments Posture Comments FHP, rounded shoulders, increased kyphosis Palpation Assessment Location L bicep Palpation Findings Edema,Soft Tissue Tightness,Spasm,Muscle Guarding PT-OP-K Range of Motion Start: 06/22/24 15:26 Freq: Status: Active Protocol: Document 07/27/24 13:28 KW (Rec: 07/27/24 13:50 KW Laptop) Shoulder Goniometric Range of Motion Shoulder Left Active Shoulder ROM WFL No Testing Position Supine Flexion 145 Horizontal Abduction 110 External Rotation at 60 45 degrees Abduction Internal Rotation 90 Internal Rotation 0 Behind Back (text) Comments (+) apprehension test - now negative Elbow/Forearm Range of Motion Elbow/Forearm Left Active Elbow/Forearm ROM No WFL ROM Testing Position Supine Elbow Flexion ( 10 degrees) Comments lacking 10 degrees full ext with full supination full extension when forearm is in pronation - NOW with full elbow extension Wrist Goniometric Range of Motion Wrist Left Wrist ROM WFL Yes PT-OP-Q Treatments Start: 06/22/24 15:26 Freq: Status: Active Protocol: Document 08/01/24 14:45 AB (Rec: 08/01/24 16:10 AB Laptop) Therapeutic Exercises Supine 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 shoulder flex ER Supine Exercise Name cane assisted Side left Resistance 0 Equipment Used 0 Reps/Minutes 10 Comments ER in plane of scapula as tolerated Sidelying Exercises AROM ER Sidelying Exercise HEP Name Side left Equipment Used HEP Reps/Minutes X 10 X 2 Comments Verbal cues to avoid moving wrist Standing Exercises wall slide Standing Exercise on forearms Name Reps/Minutes X 10 isometric reactives Standing Exercise ER, IR and scap/row Name Equipment Used HEP Reps/Minutes X 15 each level one band ER and IR, level 2 for row Comments verbal and visual cues, monitored for pain Manual Therapy Treatment Soft Tissue Mobilization L UE Body Location pec, LS, delt, biceps, post cuff, lat, periscap Mobilization Type Cross-Friction,Rolling,Sustained Pressure Intensity/Depth Moderate Body Position Sidelying Comments and hooklying Joint Mobilizations scapular mobilization Direction into depression and add Grade IV Body Position Sidelying Reps/Duration X 10 each direction PT-OP-T Assessment and Plan Start: 06/22/24 15:26 Freq: Status: Active Protocol: Document 08/01/24 14:45 AB (Rec: 08/01/24 16:10 AB Laptop) Physical Therapy Assessment Goals Three Impairment quick Dash 40% Short Term Goal (STG patient improves quick dash score to 75% ) STG Duration 6 weeks Two Impairment L shoulder AROM limitations Short Term Goal (STG pt restores full L shoulder ROM ) One Impairment lack of HEP Short Term Goal (STG Indep with HEP ) STG Duration 6 weeks Assessment Summary Assessment 149 deg post manual and all ex but wall slide, then post wall slide, AROM 151 deg flexion end of session L shoulder in standing. Patient reports the shoulder feels more stable post manual and ther ex when performing AROM flexion. Physical Therapy Plan Frequency and Duration Frequency of 1-2x/Week Treatment Duration of 12 treatment (weeks) Plan of Care Start 06/22/24 Date Plan of Care End 09/22/24 Date Next Visit Focus/Plan Next Note Type Treatment Note
--- NOTE | 2024-08-01 16:12 | PT.OTN ---
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 Seen by Dr. Mishra last Wednesday, referred for shoulder MRI and PT. She is allowed out of her sling as tolerated. 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 No RC tear, NO Treatments Planned bicep tendon tear. Loose body, AC arthritis and Labrum tear. See MRI report in chart. Treatment Goals Patient/Caregiver return to full use of L UE Goals PT-OP-C Subjective Start: 06/22/24 15:26 Freq: Status: Active Protocol: Document 08/01/24 14:45 AB (Rec: 08/01/24 16:10 AB Laptop) OP-PT Subjective Patient Comments Patient Comments Patient reports the exercises are going OK. AROM 144 deg start of session PT-OP-F Manual Assessment Start: 06/22/24 15:26 Freq: Status: Active Protocol: Document 07/27/24 13:28 KW (Rec: 07/27/24 13:50 KW Laptop) Manual Assessments Soft Tissue Assessment Soft Tissue Mobility L long head bicep and brachio-radialsis with swelling Assessment and stiffness - improved from 1st visit Joint Mobility Assessment Joint Mobility Gh joint sitting with good congruency Assessment PT-OP-J Posture/Palpation/Skin Start: 06/22/24 15:26 Freq: Status: Active Protocol: Document 07/27/24 13:28 KW (Rec: 07/27/24 13:50 KW Laptop) Posture Evaluation Comments Posture Comments FHP, rounded shoulders, increased kyphosis Palpation Assessment Location L bicep Palpation Findings Edema,Soft Tissue Tightness,Spasm,Muscle Guarding PT-OP-K Range of Motion Start: 06/22/24 15:26 Freq: Status: Active Protocol: Document 07/27/24 13:28 KW (Rec: 07/27/24 13:50 KW Laptop) Shoulder Goniometric Range of Motion Shoulder Left Active Shoulder ROM WFL No Testing Position Supine Flexion 145 Horizontal Abduction 110 External Rotation at 60 45 degrees Abduction Internal Rotation 90 Internal Rotation 0 Behind Back (text) Comments (+) apprehension test - now negative Elbow/Forearm Range of Motion Elbow/Forearm Left Active Elbow/Forearm ROM No WFL ROM Testing Position Supine Elbow Flexion ( 10 degrees) Comments lacking 10 degrees full ext with full supination full extension when forearm is in pronation - NOW with full elbow extension Wrist Goniometric Range of Motion Wrist Left Wrist ROM WFL Yes PT-OP-Q Treatments Start: 06/22/24 15:26 Freq: Status: Active Protocol: Document 08/01/24 14:45 AB (Rec: 08/01/24 16:10 AB Laptop) Therapeutic Exercises Supine Exercises 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 shoulder flex ER Supine Exercise Name cane assisted Side left Resistance 0 Equipment Used 0 Reps/Minutes 10 Comments ER in plane of scapula as tolerated Sidelying Exercises AROM ER Sidelying Exercise HEP Name Side left Equipment Used HEP Reps/Minutes X 10 X 2 Comments Verbal cues to avoid moving wrist Standing Exercises wall slide Standing Exercise on forearms Name Reps/Minutes X 10 isometric reactives Standing Exercise ER, IR and scap/row Name Equipment Used HEP Reps/Minutes X 15 each level one band ER and IR, level 2 for row Comments verbal and visual cues, monitored for pain Manual Therapy Treatment Soft Tissue Mobilization L UE Body Location pec, LS, delt, biceps, post cuff, lat, periscap Mobilization Type Cross-Friction,Rolling,Sustained Pressure Intensity/Depth Moderate Body Position Sidelying Comments and hooklying Joint Mobilizations scapular mobilization Direction into depression and add Grade IV Body Position Sidelying Reps/Duration X 10 each direction PT-OP-T Assessment and Plan Start: 06/22/24 15:26 Freq: Status: Active Protocol: Document 08/01/24 14:45 AB (Rec: 08/01/24 16:10 AB Laptop) Physical Therapy Assessment Goals Three Impairment quick Dash 40% Short Term Goal (STG patient improves quick dash score to 75% ) STG Duration 6 weeks Two Impairment L shoulder AROM limitations Short Term Goal (STG pt restores full L shoulder ROM ) One Impairment lack of HEP Short Term Goal (STG Indep with HEP ) STG Duration 6 weeks Assessment Summary Assessment 149 deg post manual and all ex but wall slide, then post wall slide, AROM 151 deg flexion end of session L shoulder in standing. Patient reports the shoulder feels more stable post manual and ther ex when performing AROM flexion. Physical Therapy Plan Frequency and Duration Frequency of 1-2x/Week Treatment Duration of 12 treatment (weeks) Plan of Care Start 06/22/24 Date Plan of Care End 09/22/24 Date Next Visit Focus/Plan Next Note Type Treatment Note
--- NOTE | 2024-08-01 16:13 | PT.OTN ---
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 Seen by Dr. Mishra last Wednesday, referred for shoulder MRI and PT. She is allowed out of her sling as tolerated. 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 No RC tear, NO Treatments Planned bicep tendon tear. Loose body, AC arthritis and Labrum tear. See MRI report in chart. Treatment Goals Patient/Caregiver return to full use of L UE Goals PT-OP-C Subjective Start: 06/22/24 15:26 Freq: Status: Active Protocol: Document 08/01/24 14:45 AB (Rec: 08/01/24 16:10 AB Laptop) OP-PT Subjective Patient Comments Patient Comments Patient reports the exercises are going OK. AROM 144 deg start of session PT-OP-F Manual Assessment Start: 06/22/24 15:26 Freq: Status: Active Protocol: Document 07/27/24 13:28 KW (Rec: 07/27/24 13:50 KW Laptop) Manual Assessments Soft Tissue Assessment Soft Tissue Mobility L long head bicep and brachio-radialsis with swelling Assessment and stiffness - improved from 1st visit Joint Mobility Assessment Joint Mobility Gh joint sitting with good congruency Assessment PT-OP-J Posture/Palpation/Skin Start: 06/22/24 15:26 Freq: Status: Active Protocol: Document 07/27/24 13:28 KW (Rec: 07/27/24 13:50 KW Laptop) Posture Evaluation Comments Posture Comments FHP, rounded shoulders, increased kyphosis Palpation Assessment Location L bicep Palpation Findings Edema,Soft Tissue Tightness,Spasm,Muscle Guarding PT-OP-K Range of Motion Start: 06/22/24 15:26 Freq: Status: Active Protocol: Document 07/27/24 13:28 KW (Rec: 07/27/24 13:50 KW Laptop) Shoulder Goniometric Range of Motion Shoulder Left Active Shoulder ROM WFL No Testing Position Supine Flexion 145 Horizontal Abduction 110 External Rotation at 60 45 degrees Abduction Internal Rotation 90 Internal Rotation 0 Behind Back (text) Comments (+) apprehension test - now negative Elbow/Forearm Range of Motion Elbow/Forearm Left Active Elbow/Forearm ROM No WFL ROM Testing Position Supine Elbow Flexion ( 10 degrees) Comments lacking 10 degrees full ext with full supination full extension when forearm is in pronation - NOW with full elbow extension Wrist Goniometric Range of Motion Wrist Left Wrist ROM WFL Yes PT-OP-Q Treatments Start: 06/22/24 15:26 Freq: Status: Active Protocol: Document 08/01/24 14:45 AB (Rec: 08/01/24 16:10 AB Laptop) Therapeutic Exercises Supine Exercises 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 shoulder flex ER Supine Exercise Name cane assisted Side left Resistance 0 Equipment Used 0 Reps/Minutes 10 Comments ER in plane of scapula as tolerated Sidelying Exercises AROM ER Sidelying Exercise HEP Name Side left Equipment Used HEP Reps/Minutes X 10 X 2 Comments Verbal cues to avoid moving wrist Standing Exercises wall slide Standing Exercise on forearms Name Reps/Minutes X 10 isometric reactives Standing Exercise ER, IR and scap/row Name Equipment Used HEP Reps/Minutes X 15 each level one band ER and IR, level 2 for row Comments verbal and visual cues, monitored for pain Manual Therapy Treatment Soft Tissue Mobilization L UE Body Location pec, LS, delt, biceps, post cuff, lat, periscap Mobilization Type Cross-Friction,Rolling,Sustained Pressure Intensity/Depth Moderate Body Position Sidelying Comments and hooklying Joint Mobilizations scapular mobilization Direction into depression and add Grade IV Body Position Sidelying Reps/Duration X 10 each direction PT-OP-T Assessment and Plan Start: 06/22/24 15:26 Freq: Status: Active Protocol: Document 08/01/24 14:45 AB (Rec: 08/01/24 16:10 AB Laptop) Physical Therapy Assessment Goals Three Impairment quick Dash 40% Short Term Goal (STG patient improves quick dash score to 75% ) STG Duration 6 weeks Two Impairment L shoulder AROM limitations Short Term Goal (STG pt restores full L shoulder ROM ) One Impairment lack of HEP Short Term Goal (STG Indep with HEP ) STG Duration 6 weeks Assessment Summary Assessment 149 deg post manual and all ex but wall slide, then post wall slide, AROM 151 deg flexion end of session L shoulder in standing. Patient reports the shoulder feels more stable post manual and ther ex when performing AROM flexion. Physical Therapy Plan Frequency and Duration Frequency of 1-2x/Week Treatment Duration of 12 treatment (weeks) Plan of Care Start 06/22/24 Date Plan of Care End 09/22/24 Date Next Visit Focus/Plan Next Note Type Treatment Note
--- NOTE | 2024-08-03 14:37 | PT.OTN ---
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 Seen by Dr. Mishra last Wednesday, referred for shoulder MRI and PT. She is allowed out of her sling as tolerated. 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 No RC tear, NO Treatments Planned bicep tendon tear. Loose body, AC arthritis and Labrum tear. See MRI report in chart. Treatment Goals Patient/Caregiver return to full use of L UE Goals PT-OP-C Subjective Start: 06/22/24 15:26 Freq: Status: Active Protocol: Document 08/03/24 13:03 AB (Rec: 08/03/24 14:37 AB Laptop) OP-PT Subjective Patient Comments Patient Comments Patient reports she is the same, maybe a little better. Patient reports she was sore, but a good sore post previous session. AROM L shoulder flexion 150 deg start of session. ER 28 deg in scap plane gravity assisted AROM L UE PT-OP-F Manual Assessment Start: 06/22/24 15:26 Freq: Status: Active Protocol: Document 07/27/24 13:28 KW (Rec: 07/27/24 13:50 KW Laptop) Manual Assessments Soft Tissue Assessment Soft Tissue Mobility L long head bicep and brachio-radialsis with swelling Assessment and stiffness - improved from 1st visit Joint Mobility Assessment Joint Mobility Gh joint sitting with good congruency Assessment PT-OP-J Posture/Palpation/Skin Start: 06/22/24 15:26 Freq: Status: Active Protocol: Document 07/27/24 13:28 KW (Rec: 07/27/24 13:50 KW Laptop) Posture Evaluation Comments Posture Comments FHP, rounded shoulders, increased kyphosis Palpation Assessment Location L bicep Palpation Findings Edema,Soft Tissue Tightness,Spasm,Muscle Guarding PT-OP-K Range of Motion Start: 06/22/24 15:26 Freq: Status: Active Protocol: Document 07/27/24 13:28 KW (Rec: 07/27/24 13:50 KW Laptop) Shoulder Goniometric Range of Motion Shoulder Left Active Shoulder ROM WFL No Testing Position Supine Flexion 145 Horizontal Abduction 110 External Rotation at 60 45 degrees Abduction Internal Rotation 90 Internal Rotation 0 Behind Back (text) Comments (+) apprehension test - now negative Elbow/Forearm Range of Motion Elbow/Forearm Left Active Elbow/Forearm ROM No WFL ROM Testing Position Supine Elbow Flexion ( 10 degrees) Comments lacking 10 degrees full ext with full supination full extension when forearm is in pronation - NOW with full elbow extension Wrist Goniometric Range of Motion Wrist Left Wrist ROM WFL Yes PT-OP-Q Treatments Start: 06/22/24 15:26 Freq: Status: Active Protocol: Document 08/03/24 13:03 AB (Rec: 08/03/24 14:37 AB Laptop) Therapeutic Exercises Sidelying Exercises AROM ER Sidelying Exercise HEP Name Side left Equipment Used HEP Reps/Minutes X 10 Comments Verbal cues to avoid moving wrist Sitting Exercises UT stretch Sitting Exercise Holding chair with CS sidebend Name Equipment Used HEP Reps/Minutes 60 sec X 2 each side Comments verbal cues seated shoulder ER Side left Reps/Minutes X 10 Comments Verbal and visual cues Standing Exercises elbow extension Resistance 1lb Reps/Minutes X 10 without weight X 10 with weight Comments verbal and visual cues wall slide Standing Exercise on forearms Name Reps/Minutes X 10 Manual Therapy Treatment Consent Patient gave verbal Yes consent for manual treatment Soft Tissue Mobilization L UE Body Location pec, LS, delt, biceps, post cuff, lat, periscap Mobilization Type Cross-Friction,Rolling,Sustained Pressure Intensity/Depth Moderate Body Position Sidelying Comments and hooklying Joint Mobilizations scapular mobilization Direction into depression and add Grade IV Body Position Sidelying Reps/Duration X 10 each direction Taping L shoulder Type of Tape Kinesio Tape Skin Inspection I strip ant GH to med scap for posture/shoulder alignment< I strip to Comments UT and levator scap insert to origin PT-OP-T Assessment and Plan Start: 06/22/24 15:26 Freq: Status: Active Protocol: Document 08/03/24 13:03 AB (Rec: 08/03/24 14:37 AB Laptop) Physical Therapy Assessment Goals Three Impairment quick Dash 40% Short Term Goal (STG patient improves quick dash score to 75% ) STG Duration 6 weeks Two Impairment L shoulder AROM limitations Short Term Goal (STG pt restores full L shoulder ROM ) One Impairment lack of HEP Short Term Goal (STG Indep with HEP ) STG Duration 6 weeks Assessment Summary Assessment AROM L shoulder flexion 153 deg end of session. Patient reports the tape feels good. Physical Therapy Plan Frequency and Duration Frequency of 1-2x/Week Treatment Duration of 12 treatment (weeks) Plan of Care Start 06/22/24 Date Plan of Care End 09/22/24 Date Next Visit Focus/Plan Next Note Type Treatment Note
--- NOTE | 2024-08-08 14:55 | PT.OTN ---
Current Diagnoses Recurrent dislocation, left shoulder (08/08/24) Physical Therapy Treatment Note PT-OP-A Visit Information Start: 06/22/24 15:26 Freq: Status: Active Protocol: Document 08/08/24 12:59 AB (Rec: 08/08/24 13:49 AB Laptop) Out-Patient Physical Therapy Visit Information Visit Information Visit Type Treatment Note Visit Note Access Code: [email or web address] Visit Start Time 13:02 Visit Stop Time 13:45 Visit Number 5( PN 08/26/2024) Number of INSURANCE ADVISER Visits 3 Evaluation Information Evaluation Date 06/22/24 PT-OP-B Current Condition Start: 06/22/24 15:26 Freq: Status: Active Protocol: Document 07/27/24 13:28 KW (Rec: 07/27/24 13:50 KW Laptop) Current Condition History of Current Condition Onset Date 06/08/2024 Current Complaints L shoulder dislocation and reduction in ED History of Current 63 yo female walking neighbors big dog when it lunged Condition to [place] and pulled on her arm, pulling her to the ground. Seen by Dr. Mishra last Wednesday, referred for shoulder MRI and PT. She is allowed out of her sling as tolerated. 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 No RC tear, NO Treatments Planned bicep tendon tear. Loose body, AC arthritis and Labrum tear. See MRI report in chart. Treatment Goals Patient/Caregiver return to full use of L UE Goals PT-OP-C Subjective Start: 06/22/24 15:26 Freq: Status: Active Protocol: Document 08/08/24 12:59 AB (Rec: 08/08/24 13:49 AB Laptop) OP-PT Subjective Patient Comments Patient Comments Patient rates pain 2/10 start of session, repots tape was helpful. Attributes increased pain today to working in yard. Estimates working in yard 30 min at a time, not much more than twice a day. AROM 155 deg L shoulder flexion start of session. PT-OP-F Manual Assessment Start: 06/22/24 15:26 Freq: Status: Active Protocol: Document 07/27/24 13:28 KW (Rec: 07/27/24 13:50 KW Laptop) Manual Assessments Soft Tissue Assessment Soft Tissue Mobility L long head bicep and brachio-radialsis with swelling Assessment and stiffness - improved from 1st visit Joint Mobility Assessment Joint Mobility Gh joint sitting with good congruency Assessment PT-OP-J Posture/Palpation/Skin Start: 06/22/24 15:26 Freq: Status: Active Protocol: Document 07/27/24 13:28 KW (Rec: 07/27/24 13:50 KW Laptop) Posture Evaluation Comments Posture Comments FHP, rounded shoulders, increased kyphosis Palpation Assessment Location L bicep Palpation Findings Edema,Soft Tissue Tightness,Spasm,Muscle Guarding PT-OP-K Range of Motion Start: 06/22/24 15:26 Freq: Status: Active Protocol: Document 07/27/24 13:28 KW (Rec: 07/27/24 13:50 KW Laptop) Shoulder Goniometric Range of Motion Shoulder Left Active Shoulder ROM WFL No Testing Position Supine Flexion 145 Horizontal Abduction 110 External Rotation at 60 45 degrees Abduction Internal Rotation 90 Internal Rotation 0 Behind Back (text) Comments (+) apprehension test - now negative Elbow/Forearm Range of Motion Elbow/Forearm Left Active Elbow/Forearm ROM No WFL ROM Testing Position Supine Elbow Flexion ( 10 degrees) Comments lacking 10 degrees full ext with full supination full extension when forearm is in pronation - NOW with full elbow extension Wrist Goniometric Range of Motion Wrist Left Wrist ROM WFL Yes PT-OP-Q Treatments Start: 06/22/24 15:26 Freq: Status: Active Protocol: Document 08/08/24 12:59 AB (Rec: 08/08/24 13:49 AB Laptop) Therapeutic Exercises Sitting Exercises UT stretch Sitting Exercise in standing this session Name Equipment Used HEP Reps/Minutes 60 sec X 2 each side Comments verbal cues seated shoulder ER Sitting Exercise HEP Name Side left Reps/Minutes X 10 Comments Verbal and visual cues Standing Exercises high row Resistance level 3 band Reps/Minutes X 15 Comments verbal and visual cues, tact cues at UT isometric reactives Standing Exercise row Name Equipment Used HEP Reps/Minutes level 3 band Comments verbal and visual cues, monitored for pain Manual Therapy Treatment Consent Patient gave verbal Yes consent for manual treatment Soft Tissue Mobilization L UE Body Location pec, LS, delt, biceps, post cuff, lat, periscap Mobilization Type Cross-Friction,Rolling,Sustained Pressure Intensity/Depth Moderate Body Position Sidelying Comments and hooklying Joint Mobilizations scapular mobilization Direction into depression and add Grade IV Body Position Sidelying Reps/Duration X 10 each direction PT-OP-T Assessment and Plan Start: 06/22/24 15:26 Freq: Status: Active Protocol: Document 08/08/24 12:59 AB (Rec: 08/08/24 13:49 AB Laptop) Physical Therapy Assessment Goals Three Impairment quick Dash 40% Short Term Goal (STG patient improves quick dash score to 75% ) STG Duration 6 weeks Two Impairment L shoulder AROM limitations Short Term Goal (STG pt restores full L shoulder ROM ) One Impairment lack of HEP Short Term Goal (STG Indep with HEP ) STG Duration 6 weeks Assessment Summary Assessment AROM L shoulder flexion 158 deg end of session. Patient reports shoulder feels good, better end of session. Physical Therapy Plan Frequency and Duration Frequency of 1-2x/Week Treatment Duration of 12 treatment (weeks) Plan of Care Start 06/22/24 Date Plan of Care End 09/22/24 Date Next Visit Focus/Plan Next Note Type Treatment Note Next Visit Plan Progress shoulder ER strengthening as tammy. Possibly high row to HEP tape L shoulder
--- NOTE | 2024-08-10 13:37 | PT.OPPN ---
Current Diagnoses Recurrent dislocation, left shoulder (08/10/24) Physical Therapy Progress Note PT-OP-A Visit Information Start: 06/22/24 15:26 Freq: Status: Active Protocol: Document 08/10/24 12:53 KW (Rec: 08/10/24 13:36 KW Laptop) Out-Patient Physical Therapy Visit Information Visit Information Visit Type Treatment Note Visit Note Access Code: [email or web address] Visit Start Time 13:00 Visit Stop Time 13:45 Visit Number 5( PN 08/26/2024) Number of MOLD REPAIR TECHNICIAN Visits 3 Evaluation Information Evaluation Date 06/22/24 PT-OP-B Current Condition Start: 06/22/24 15:26 Freq: Status: Active Protocol: Document 07/27/24 13:28 KW (Rec: 07/27/24 13:50 KW Laptop) Current Condition History of Current Condition Onset Date 06/08/2024 Current Complaints L shoulder dislocation and reduction in ED History of Current 63 yo female walking neighbors big dog when it lunged Condition to [place] and pulled on her arm, pulling her to the ground. Seen by Dr. Mishra last Wednesday, referred for shoulder MRI and PT. She is allowed out of her sling as tolerated. 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 No RC tear, NO Treatments Planned bicep tendon tear. Loose body, AC arthritis and Labrum tear. See MRI report in chart. Treatment Goals Patient/Caregiver return to full use of L UE Goals PT-OP-C Subjective Start: 06/22/24 15:26 Freq: Status: Active Protocol: Document 08/10/24 12:53 KW (Rec: 08/10/24 13:36 KW Laptop) OP-PT Subjective Patient Comments Patient Comments feels ready to taper PT pt is pleased with progress, was able to do mannequin CPR OP-PT Pain Assessment Location Left Upper Arm Intensity 3 Scale Used Numeric (0 - 10) Description Aching,Cramping,Dull Frequency Frequent Pain Aggravating ADL's,Activity,Exercise Factors Pain Alleviating Cold,Heat,Medication,Inactivity,Position Factors PT-OP-F Manual Assessment Start: 06/22/24 15:26 Freq: Status: Active Protocol: Document 07/27/24 13:28 KW (Rec: 07/27/24 13:50 KW Laptop) Manual Assessments Soft Tissue Assessment Soft Tissue Mobility L long head bicep and brachio-radialsis with swelling Assessment and stiffness - improved from 1st visit Joint Mobility Assessment Joint Mobility Gh joint sitting with good congruency Assessment PT-OP-J Posture/Palpation/Skin Start: 06/22/24 15:26 Freq: Status: Active Protocol: Document 07/27/24 13:28 KW (Rec: 07/27/24 13:50 KW Laptop) Posture Evaluation Comments Posture Comments FHP, rounded shoulders, increased kyphosis Palpation Assessment Location L bicep Palpation Findings Edema,Soft Tissue Tightness,Spasm,Muscle Guarding PT-OP-K Range of Motion Start: 06/22/24 15:26 Freq: Status: Active Protocol: Document 07/27/24 13:28 KW (Rec: 07/27/24 13:50 KW Laptop) Shoulder Goniometric Range of Motion Shoulder Measured in Degrees Left Active Shoulder ROM WFL No Testing Position Supine Flexion 145 Horizontal Abduction 110 External Rotation at 60 45 degrees Abduction Internal Rotation 90 Internal Rotation 0 Behind Back (text) Comments (+) apprehension test - now negative Elbow/Forearm Range of Motion Elbow/Forearm Measured in Degrees Left Active Elbow/Forearm ROM No WFL ROM Testing Position Supine Elbow Flexion ( 10 degrees) Comments lacking 10 degrees full ext with full supination full extension when forearm is in pronation - NOW with full elbow extension Wrist Goniometric Range of Motion Wrist Measured in Degrees Left Wrist ROM WFL Yes PT-OP-T Assessment and Plan Start: 06/22/24 15:26 Freq: Status: Active Protocol: Document 08/10/24 12:53 KW (Rec: 08/10/24 13:36 KW Laptop) Physical Therapy Assessment Rehab Potential Rehabilitation Excellent Potential Goals Three Impairment quick Dash 40% Short Term Goal (STG patient improves quick dash score to 75% ) STG Duration 6 weeks Two Impairment L shoulder AROM limitations Short Term Goal (STG pt restores full L shoulder ROM ) One Impairment lack of HEP Short Term Goal (STG Indep with HEP ) STG Duration 6 weeks Assessment Summary Assessment taping feeling very stable, manual work was helpful for stiff T-spine Physical Therapy Plan Frequency and Duration Frequency of 1-2x/Week Treatment Duration of 12 treatment (weeks) Plan of Care Start 06/22/24 Date Plan of Care End 09/22/24 Date Therapeutic Interventions Therapeutic Home Exercise Program,Joint Mobilizations,Manual Interventions Therapy,Patient/Caregiver Education,Self-Care/Home Management,Soft Tissue Mobilization,Taping,Therapeutic Activities,Therapeutic Exercises
--- NOTE | 2024-08-16 16:49 | PT.OTN ---
Current Diagnoses Recurrent dislocation, left shoulder (08/16/24) Physical Therapy Treatment Note PT-OP-A Visit Information Start: 06/22/24 15:26 Freq: Status: Active Protocol: Document 08/16/24 16:14 KW (Rec: 08/16/24 16:49 KW Laptop) Out-Patient Physical Therapy Visit Information Visit Information Visit Type Treatment Note Visit Note Access Code: [email or web address] Visit Start Time 16:15 Visit Stop Time 16:55 Visit Number 6( PN 08/26/2024) Number of AUTOMOTIVE REPAIR TECHNICIAN Visits 3 Evaluation Information Evaluation Date 06/22/24 PT-OP-B Current Condition Start: 06/22/24 15:26 Freq: Status: Active Protocol: Document 07/27/24 13:28 KW (Rec: 07/27/24 13:50 KW Laptop) Current Condition History of Current Condition Onset Date 06/08/2024 Current Complaints L shoulder dislocation and reduction in ED History of Current 63 yo female walking neighbors big dog when it lunged Condition to [place] and pulled on her arm, pulling her to the ground. Seen by Dr. Mishra last Wednesday, referred for shoulder MRI and PT. She is allowed out of her sling as tolerated. 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 No RC tear, NO Treatments Planned bicep tendon tear. Loose body, AC arthritis and Labrum tear. See MRI report in chart. Treatment Goals Patient/Caregiver return to full use of L UE Goals PT-OP-C Subjective Start: 06/22/24 15:26 Freq: Status: Active Protocol: Document 08/16/24 16:14 KW (Rec: 08/16/24 16:49 KW Laptop) OP-PT Subjective Patient Comments Patient Comments would like to continue PT for added stability training tape feels amazing feels as if she is getting stronger, more stable, able to do more OP-PT Pain Assessment Location Left Upper Arm Intensity 1 Scale Used Numeric (0 - 10) Description Aching,Cramping,Dull Frequency Frequent Pain Aggravating ADL's,Activity,Exercise Factors Pain Alleviating Cold,Heat,Medication,Inactivity,Position Factors PT-OP-F Manual Assessment Start: 06/22/24 15:26 Freq: Status: Active Protocol: Document 07/27/24 13:28 KW (Rec: 07/27/24 13:50 KW Laptop) Manual Assessments Soft Tissue Assessment Soft Tissue Mobility L long head bicep and brachio-radialsis with swelling Assessment and stiffness - improved from 1st visit Joint Mobility Assessment Joint Mobility Gh joint sitting with good congruency Assessment PT-OP-J Posture/Palpation/Skin Start: 06/22/24 15:26 Freq: Status: Active Protocol: Document 07/27/24 13:28 KW (Rec: 07/27/24 13:50 KW Laptop) Posture Evaluation Comments Posture Comments FHP, rounded shoulders, increased kyphosis Palpation Assessment Location L bicep Palpation Findings Edema,Soft Tissue Tightness,Spasm,Muscle Guarding PT-OP-K Range of Motion Start: 06/22/24 15:26 Freq: Status: Active Protocol: Document 07/27/24 13:28 KW (Rec: 07/27/24 13:50 KW Laptop) Shoulder Goniometric Range of Motion Shoulder Left Active Shoulder ROM WFL No Testing Position Supine Flexion 145 Horizontal Abduction 110 External Rotation at 60 45 degrees Abduction Internal Rotation 90 Internal Rotation 0 Behind Back (text) Comments (+) apprehension test - now negative Elbow/Forearm Range of Motion Elbow/Forearm Left Active Elbow/Forearm ROM No WFL ROM Testing Position Supine Elbow Flexion ( 10 degrees) Comments lacking 10 degrees full ext with full supination full extension when forearm is in pronation - NOW with full elbow extension Wrist Goniometric Range of Motion Wrist Left Wrist ROM WFL Yes PT-OP-Q Treatments Start: 06/22/24 15:26 Freq: Status: Active Protocol: Document 08/16/24 16:14 KW (Rec: 08/16/24 16:49 KW Laptop) Cardio Equipment Upper Body Ergometer (UBE) Duration (Minutes) 4 Gym Equipment Shuttle Rebound ball toss Exercise Details red ball toss, for confidence building Therapeutic Exercises Supine Exercises chest pit tanner Supine Exercise Name on pool noodle Equipment Used HEP Reps/Minutes 2 min Comments verbal and tactile cues for position. shoulder flex ER Supine Exercise Name cane assisted Side left Resistance 0 Equipment Used 0 Reps/Minutes 10 Comments ER in plane of scapula as tolerated Sidelying Exercises AROM ER Side left Equipment Used HEP Reps/Minutes X 10 Comments Verbal cues to avoid moving wrist Sitting Exercises seated tricep press Sitting Exercise tricep press ups from bench Name Reps/Minutes x 8 UT stretch Sitting Exercise in standing this session Name Equipment Used HEP Reps/Minutes 60 sec X 2 each side Comments verbal cues table slides Sitting Exercise all four quadruped rhythmic stabilization Name Reps/Minutes 1 min Standing Exercises wall push ups Standing Exercise wall push ups off of treadmill bar Name Reps/Minutes 10 high row Resistance level 3 band Reps/Minutes X 15 Comments verbal and visual cues, tact cues at UT elbow extension Resistance 1lb Reps/Minutes X 10 without weight X 10 with weight Comments verbal and visual cues wall slide Standing Exercise on forearms Name Reps/Minutes X 10 isometric reactives Standing Exercise row Name Equipment Used HEP Reps/Minutes level 3 band Comments verbal and visual cues, monitored for pain B UE band Standing Exercise standing B UE extension - not issued for HEP yet Name Equipment Used pink band Reps/Minutes 10 Manual Therapy Treatment Consent Patient gave verbal Yes consent for manual treatment Soft Tissue Mobilization L UE Body Location pec, LS, delt, biceps, post cuff, lat, periscap Mobilization Type Cross-Friction,Rolling,Sustained Pressure Intensity/Depth Moderate Body Position Sidelying Comments and hooklying prone T spine mobs Joint Mobilizations scapular mobilization Direction into depression and add Grade IV Body Position Sidelying Reps/Duration X 10 each direction Taping L shoulder Type of Tape Kinesio Tape Skin Inspection I strip ant GH to med scap for posture/shoulder alignment< I strip to Comments UT and levator scap insert to origin PT-OP-T Assessment and Plan Start: 06/22/24 15:26 Freq: Status: Active Protocol: Document 08/16/24 16:14 KW (Rec: 08/16/24 16:49 KW Laptop) Physical Therapy Assessment Rehab Potential Rehabilitation Excellent Potential Goals Three Impairment quick Dash 40% Short Term Goal (STG patient improves quick dash score to 75%w ) STG Duration 6 weeks Two Impairment L shoulder AROM limitations Short Term Goal (STG pt restores full L shoulder ROM ) One Impairment lack of HEP Short Term Goal (STG Indep with HEP ) STG Duration 6 weeks Assessment Summary Assessment taping feeling very stable, manual work was helpful for stiff T-spine Physical Therapy Plan Frequency and Duration Frequency of 1-2x/Week Treatment Duration of 12 treatment (weeks) Plan of Care Start 06/22/24 Date Plan of Care End 09/22/24 Date Therapeutic Interventions Therapeutic Home Exercise Program,Joint Mobilizations,Manual Interventions Therapy,Patient/Caregiver Education,Self-Care/Home Management,Soft Tissue Mobilization,Taping,Therapeutic Activities,Therapeutic Exercises
--- NOTE | 2024-08-24 17:53 | PT.OTN ---
Current Diagnoses Recurrent dislocation, left shoulder (08/24/24) Physical Therapy Treatment Note PT-OP-A Visit Information Start: 06/22/24 15:26 Freq: Status: Active Protocol: Document 08/24/24 17:48 KW (Rec: 08/24/24 17:53 KW Laptop) Out-Patient Physical Therapy Visit Information Visit Information Visit Type Progress Note Visit Note Access Code: [email or web address] Visit Start Time 17:00 Visit Stop Time 17:45 Visit Number 7 Number of COPYRIGHT EXPERT Visits 3 Evaluation Information Evaluation Date 06/22/24 PT-OP-B Current Condition Start: 06/22/24 15:26 Freq: Status: Active Protocol: Document 08/24/24 17:48 KW (Rec: 08/24/24 17:53 KW Laptop) Current Condition History of Current Condition Onset Date 06/08/2024 Current Complaints L shoulder dislocation and reduction in ED History of Current 63 yo female walking neighbors big dog when it lunged Condition to [place] and pulled on her arm, pulling her to the ground. Seen by Dr. Mishra last Wednesday, referred for shoulder MRI and PT. She is allowed out of her sling as tolerated. 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 No RC tear, NO Treatments Planned bicep tendon tear. Loose body, AC arthritis and Labrum tear. See MRI report in chart. Treatment Goals Patient/Caregiver return to full use of L UE Goals PT-OP-C Subjective Start: 06/22/24 15:26 Freq: Status: Active Protocol: Document 08/24/24 17:48 KW (Rec: 08/24/24 17:53 KW Laptop) OP-PT Subjective Patient Comments Patient Comments finally feels that she is turning the corner. Patient Questionnaires Quick Dash- Upper Extremity Quick Dash UE 20 to 39% Impaired (Score 20-39) Impairment OP-PT Pain Assessment Location Left Upper Arm Intensity 1 Scale Used Numeric (0 - 10) Description Aching,Cramping,Dull Frequency Frequent Pain Aggravating ADL's,Activity,Exercise Factors Pain Alleviating Cold,Heat,Medication,Inactivity,Position Factors PT-OP-F Manual Assessment Start: 06/22/24 15:26 Freq: Status: Active Protocol: Document 08/24/24 17:48 KW (Rec: 08/24/24 17:53 KW Laptop) Manual Assessments Soft Tissue Assessment Soft Tissue Mobility L long head bicep and brachio-radialsis with swelling Assessment and stiffness - improved from 1st visit - resolved Joint Mobility Assessment Joint Mobility Gh joint sitting with good congruency Assessment PT-OP-J Posture/Palpation/Skin Start: 06/22/24 15:26 Freq: Status: Active Protocol: Document 08/24/24 17:48 KW (Rec: 08/24/24 17:53 KW Laptop) Posture Evaluation Comments Posture Comments FHP, rounded shoulders, increased kyphosis Palpation Assessment Location L bicep Palpation Findings Edema,Soft Tissue Tightness,Spasm,Muscle Guarding PT-OP-K Range of Motion Start: 06/22/24 15:26 Freq: Status: Active Protocol: Document 08/24/24 17:48 KW (Rec: 08/24/24 17:53 KW Laptop) Shoulder Goniometric Range of Motion Shoulder Left Active Shoulder ROM WFL No Testing Position Supine Flexion 150 Horizontal Abduction 120 External Rotation at 80 45 degrees Abduction Internal Rotation 90 Internal Rotation 0 Behind Back (text) Comments (+) apprehension test - now negative Elbow/Forearm Range of Motion Elbow/Forearm Left Active Elbow/Forearm ROM No WFL ROM Testing Position Supine Elbow Flexion ( 120 degrees) Elbow Extension ( 0 degrees) Comments lacking 10 degrees full ext with full supination full extension when forearm is in pronation - NOW with full elbow extension Wrist Goniometric Range of Motion Wrist Left Wrist ROM WFL Yes PT-OP-Q Treatments Start: 06/22/24 15:26 Freq: Status: Active Protocol: Document 08/24/24 17:48 KW (Rec: 08/24/24 17:53 KW Laptop) Cardio Equipment Upper Body Ergometer (UBE) Duration (Minutes) 4 Gym Equipment Shuttle Rebound ball toss Exercise Details pink ball toss, for confidence building Therapeutic Exercises Supine Exercises chest hand thermal cutter Supine Exercise Name on 02/16 roll Equipment Used HEP Reps/Minutes 2 min Comments verbal and tactile cues for position. shoulder flex ER Supine Exercise Name cane assisted Side left Resistance 0 Equipment Used 0 Reps/Minutes 10 Comments ER in plane of scapula as tolerated Sidelying Exercises AROM ER Side left Equipment Used HEP Reps/Minutes X 10 Comments Verbal cues to avoid moving wrist Sitting Exercises seated tricep press Sitting Exercise tricep press ups from bench Name Reps/Minutes x 8 UT stretch Sitting Exercise in standing this session Name Equipment Used HEP Reps/Minutes 60 sec X 2 each side Comments verbal cues seated shoulder ER Side left Reps/Minutes X 10 Comments Verbal and visual cues table slides Sitting Exercise all four quadruped rhythmic stabilization Name Reps/Minutes 1 min AROM L elbow Side left Resistance 0 Equipment Used 0 Reps/Minutes 10 Comments elbow flex/ext with combined pro/supination from full flexion to full exten Standing Exercises wall push ups Standing Exercise wall push ups off of treadmill bar Name Reps/Minutes 10 high row Resistance level 3 band Reps/Minutes X 15 Comments verbal and visual cues, tact cues at UT elbow extension Resistance 1lb Reps/Minutes X 10 without weight X 10 with weight Comments verbal and visual cues wall slide Standing Exercise on forearms Name Reps/Minutes X 10 isometric reactives Standing Exercise row Name Equipment Used HEP Reps/Minutes level 3 band Comments verbal and visual cues, monitored for pain B UE band Standing Exercise standing B UE extension - not issued for HEP yet Name Equipment Used pink band Reps/Minutes 10 Manual Therapy Treatment Consent Patient gave verbal Yes consent for manual treatment Soft Tissue Mobilization L UE Body Location pec, LS, delt, biceps, post cuff, lat, periscap Mobilization Type Cross-Friction,Rolling,Sustained Pressure Intensity/Depth Moderate Body Position Sidelying Comments and hooklying prone T spine mobs Joint Mobilizations scapular mobilization Direction into depression and add Grade IV Body Position Sidelying Reps/Duration X 10 each direction Taping L shoulder Type of Tape Kinesio Tape Skin Inspection I strip ant GH to med scap for posture/shoulder alignment< I strip to Comments UT and levator scap insert to origin Neuro Re-Education Treatment Other Activities KT Tape Comments KT Tape to support L bicep tendon PT-OP-T Assessment and Plan Start: 06/22/24 15:26 Freq: Status: Active Protocol: Document 08/24/24 17:48 KW (Rec: 08/24/24 17:53 KW Laptop) Physical Therapy Assessment Rehab Potential Rehabilitation Excellent Potential Evaluation Complexity Number of Personal 1-2 Factors/ Comorbidities Number of Body 1-2 Systems Impaired Clinical Evolving Presentation at Evaluation Impairments Impairments Activity Tolerance,Coordination,Edema,Functional Activities,Functional Mobility,Pain,Posture,ROM, Strength Goals Three Impairment quick Dash 40% Short Term Goal (STG patient improves quick dash score to 75%w ) STG Duration 6 weeks Two Impairment L shoulder AROM limitations Short Term Goal (STG pt restores full L shoulder ROM - 80% ) One Impairment lack of HEP Short Term Goal (STG Indep with HEP - MET, evolving with new ther-ex ) STG Duration 6 weeks Assessment Summary Assessment taping feeling very stable, manual work was helpful for stiff T-spine Physical Therapy Plan Frequency and Duration Frequency of 1-2x/Week Treatment Duration of 12 treatment (weeks) Plan of Care Start 06/22/24 Date Plan of Care End 09/22/24 Date Therapeutic Interventions Therapeutic Home Exercise Program,Joint Mobilizations,Manual Interventions Therapy,Patient/Caregiver Education,Self-Care/Home Management,Soft Tissue Mobilization,Taping,Therapeutic Activities,Therapeutic Exercises
--- NOTE | 2024-09-07 16:32 | PT.OTN ---
Current Diagnoses Recurrent dislocation, left shoulder (09/07/24) Physical Therapy Treatment Note PT-OP-A Visit Information Start: 06/22/24 15:26 Freq: Status: Active Protocol: Document 09/07/24 16:17 KW (Rec: 09/07/24 16:32 KW Laptop) Out-Patient Physical Therapy Visit Information Visit Information Visit Type Treatment Note Visit Note Access Code: [email or web address] Visit Start Time 16:15 Visit Stop Time 16:55 Visit Number 8 Number of SENIOR ORACLE APPLICATIONS DEVELOPER Visits 3 Evaluation Information Evaluation Date 06/22/24 PT-OP-B Current Condition Start: 06/22/24 15:26 Freq: Status: Active Protocol: Document 09/07/24 16:17 KW (Rec: 09/07/24 16:32 KW Laptop) Current Condition History of Current Condition Onset Date 06/08/2024 Current Complaints L shoulder dislocation and reduction in ED History of Current 63 yo female walking neighbors big dog when it lunged Condition to [place] and pulled on her arm, pulling her to the ground. Seen by Dr. Mishra last Wednesday, referred for shoulder MRI and PT. She is allowed out of her sling as tolerated. 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 No RC tear, NO Treatments Planned bicep tendon tear. Loose body, AC arthritis and Labrum tear. See MRI report in chart. PT-OP-C Subjective Start: 06/22/24 15:26 Freq: Status: Active Protocol: Document 09/07/24 16:17 KW (Rec: 09/07/24 16:32 KW Laptop) OP-PT Subjective Patient Comments Patient Comments would like to schedule shoulder surgery for December OP-PT Pain Assessment Location Left Upper Arm Pain Intensity 1 Scale Used Numeric (0 - 10) Description Aching,Cramping,Dull Frequency Frequent Pain Alleviating Cold,Heat,Medication,Inactivity,Position Factors Pain Aggravating ADL's,Activity,Exercise Factors PT-OP-F Manual Assessment Start: 06/22/24 15:26 Freq: Status: Active Protocol: Document 08/24/24 17:48 KW (Rec: 08/24/24 17:53 KW Laptop) Manual Assessments Soft Tissue Assessment Soft Tissue Mobility L long head bicep and brachio-radialsis with swelling Assessment and stiffness - improved from 1st visit - resolved Joint Mobility Assessment Joint Mobility Gh joint sitting with good congruency Assessment PT-OP-J Posture/Palpation/Skin Start: 06/22/24 15:26 Freq: Status: Active Protocol: Document 08/24/24 17:48 KW (Rec: 08/24/24 17:53 KW Laptop) Posture Evaluation Comments Posture Comments FHP, rounded shoulders, increased kyphosis Palpation Assessment Location L bicep Palpation Findings Edema,Soft Tissue Tightness,Spasm,Muscle Guarding PT-OP-K Range of Motion Start: 06/22/24 15:26 Freq: Status: Active Protocol: Document 08/24/24 17:48 KW (Rec: 08/24/24 17:53 KW Laptop) Shoulder Goniometric Range of Motion Shoulder Left Active Shoulder ROM WFL No Testing Position Supine Flexion 150 Horizontal Abduction 120 External Rotation at 80 45 degrees Abduction Internal Rotation 90 Internal Rotation 0 Behind Back (text) Comments (+) apprehension test - now negative Elbow/Forearm Range of Motion Elbow/Forearm Left Active Elbow/Forearm ROM No WFL ROM Testing Position Supine Elbow Flexion ( 120 degrees) Elbow Extension ( 0 degrees) Comments lacking 10 degrees full ext with full supination full extension when forearm is in pronation - NOW with full elbow extension Wrist Goniometric Range of Motion Wrist Left Wrist ROM WFL Yes PT-OP-Q Treatments Start: 06/22/24 15:26 Freq: Status: Active Protocol: Document 09/07/24 16:17 KW (Rec: 09/07/24 16:32 KW Laptop) Cardio Equipment Upper Body Ergometer (UBE) Duration (Minutes) 4 Gym Equipment Shuttle Rebound ball toss Exercise Details pink ball toss, for confidence building Therapeutic Exercises Supine Exercises chest catheterization laboratory technician Supine Exercise Name on / roll Equipment Used HEP Reps/Minutes 2 min Comments verbal and tactile cues for position. shoulder flex ER Supine Exercise Name cane assisted Side left Resistance 0 Equipment Used 0 Reps/Minutes 10 Comments ER in plane of scapula as tolerated Sidelying Exercises AROM ER Side left Equipment Used HEP Reps/Minutes X 10 Comments Verbal cues to avoid moving wrist Sitting Exercises seated tricep press Sitting Exercise tricep press ups from bench Name Reps/Minutes x 8 UT stretch Sitting Exercise in standing this session Name Equipment Used HEP Reps/Minutes 60 sec X 2 each side Comments verbal cues seated shoulder ER Side left Reps/Minutes X 10 Comments Verbal and visual cues table slides Sitting Exercise all four quadruped rhythmic stabilization Name Reps/Minutes 1 min AROM L elbow Side left Resistance 0 Equipment Used 0 Reps/Minutes 10 Comments elbow flex/ext with combined pro/supination from full flexion to full exten Standing Exercises wall push ups Standing Exercise wall push ups off of treadmill bar Name Reps/Minutes 10 high row Resistance level 3 band Reps/Minutes X 15 Comments verbal and visual cues, tact cues at UT elbow extension Resistance 1lb Reps/Minutes X 10 without weight X 10 with weight Comments verbal and visual cues wall slide Standing Exercise on forearms Name Reps/Minutes X 10 isometric reactives Standing Exercise row Name Equipment Used HEP Reps/Minutes level 3 band Comments verbal and visual cues, monitored for pain B UE band Standing Exercise standing B UE extension - not issued for HEP yet Name Equipment Used pink band Reps/Minutes 10 PT-OP-T Assessment and Plan Start: 06/22/24 15:26 Freq: Status: Active Protocol: Document 09/07/24 16:17 KW (Rec: 09/07/24 16:32 KW Laptop) Physical Therapy Assessment Rehab Potential Rehabilitation Excellent Potential Evaluation Complexity Number of Personal 1-2 Factors/ Comorbidities Number of Body 1-2 Systems Impaired Clinical Evolving Presentation at Evaluation Impairments Impairments Activity Tolerance,Coordination,Edema,Functional Activities,Functional Mobility,Pain,Posture,ROM, Strength Goals Three Impairment quick Dash 40% Short Term Goal (STG patient improves quick dash score to 75%w ) STG Duration 6 weeks Two Impairment L shoulder AROM limitations Short Term Goal (STG pt restores full L shoulder ROM - 80% ) One Impairment lack of HEP Short Term Goal (STG Indep with HEP - MET, evolving with new ther-ex ) STG Duration 6 weeks Assessment Summary Assessment taping feeling very stable, manual work was helpful for stiff T-spine two more visits then DC Physical Therapy Plan Frequency and Duration Frequency of 1-2x/Week Treatment Duration of 12 treatment (weeks) Plan of Care Start 06/22/24 Plan of Care End 09/22/24 Date Therapeutic Interventions Therapeutic Home Exercise Program,Joint Mobilizations,Manual Interventions Therapy,Patient/Caregiver Education,Self-Care/Home Management,Soft Tissue Mobilization,Taping,Therapeutic Activities,Therapeutic Exercises
--- NOTE | 2024-09-13 16:58 | PT.OTN ---
Current Diagnoses Recurrent dislocation, left shoulder (09/13/24) Physical Therapy Treatment Note PT-OP-A Visit Information Start: 06/22/24 15:26 Freq: Status: Active Protocol: Document 09/13/24 16:34 KW (Rec: 09/13/24 16:38 KW Laptop) Out-Patient Physical Therapy Visit Information Visit Information Visit Type Treatment Note Visit Note Access Code: [email or web address] Visit Start Time 16:15 Visit Stop Time 16:55 Visit Number 9 Number of TEXTILE COLORIST DYER Visits 3 Evaluation Information Evaluation Date 06/22/24 PT-OP-B Current Condition Start: 06/22/24 15:26 Freq: Status: Active Protocol: Document 09/13/24 16:34 KW (Rec: 09/13/24 16:38 KW Laptop) Current Condition History of Current Condition Onset Date 06/08/2024 Current Complaints L shoulder dislocation and reduction in ED History of Current 63 yo female walking neighbors big dog when it lunged Condition to [place] and pulled on her arm, pulling her to the ground. Seen by Dr. Mishra last Wednesday, referred for shoulder MRI and PT. She is allowed out of her sling as tolerated. 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 No RC tear, NO Treatments Planned bicep tendon tear. Loose body, AC arthritis and Labrum tear. See MRI report in chart. PT-OP-C Subjective Start: 06/22/24 15:26 Freq: Status: Active Protocol: Document 09/13/24 16:34 KW (Rec: 09/13/24 16:38 KW Laptop) OP-PT Subjective Patient Comments Patient Comments gave 2 week notice at work due to the stress OP-PT Pain Assessment Location Left Upper Arm Pain Intensity 1 Scale Used Numeric (0 - 10) Description Aching,Cramping,Dull Frequency Frequent Pain Alleviating Cold,Heat,Medication,Inactivity,Position Factors Pain Aggravating ADL's,Activity,Exercise Factors PT-OP-F Manual Assessment Start: 06/22/24 15:26 Freq: Status: Active Protocol: Document 08/24/24 17:48 KW (Rec: 08/24/24 17:53 KW Laptop) Manual Assessments Soft Tissue Assessment Soft Tissue Mobility L long head bicep and brachio-radialsis with swelling Assessment and stiffness - improved from 1st visit - resolved Joint Mobility Assessment Joint Mobility Gh joint sitting with good congruency Assessment PT-OP-J Posture/Palpation/Skin Start: 06/22/24 15:26 Freq: Status: Active Protocol: Document 08/24/24 17:48 KW (Rec: 08/24/24 17:53 KW Laptop) Posture Evaluation Comments Posture Comments FHP, rounded shoulders, increased kyphosis Palpation Assessment Location L bicep Palpation Findings Edema,Soft Tissue Tightness,Spasm,Muscle Guarding PT-OP-K Range of Motion Start: 06/22/24 15:26 Freq: Status: Active Protocol: Document 08/24/24 17:48 KW (Rec: 08/24/24 17:53 KW Laptop) Shoulder Goniometric Range of Motion Shoulder Left Active Shoulder ROM WFL No Testing Position Supine Flexion 150 Horizontal Abduction 120 External Rotation at 80 45 degrees Abduction Internal Rotation 90 Internal Rotation 0 Behind Back (text) Comments (+) apprehension test - now negative Elbow/Forearm Range of Motion Elbow/Forearm Left Active Elbow/Forearm ROM No WFL ROM Testing Position Supine Elbow Flexion ( 120 degrees) Elbow Extension ( 0 degrees) Comments lacking 10 degrees full ext with full supination full extension when forearm is in pronation - NOW with full elbow extension Wrist Goniometric Range of Motion Wrist Left Wrist ROM WFL Yes PT-OP-Q Treatments Start: 06/22/24 15:26 Freq: Status: Active Protocol: Document 09/13/24 16:34 KW (Rec: 09/13/24 16:38 KW Laptop) Cardio Equipment Upper Body Ergometer (UBE) Duration (Minutes) 4 Therapeutic Exercises Supine Exercises chest shirt cleaner Supine Exercise Name on 02/16 roll Equipment Used HEP Reps/Minutes 2 min Comments verbal and tactile cues for position. shoulder flex ER Supine Exercise Name cane assisted Side left Resistance 0 Equipment Used 0 Reps/Minutes 10 Comments ER in plane of scapula as tolerated Sidelying Exercises AROM ER Side left Equipment Used HEP Reps/Minutes X 10 Comments Verbal cues to avoid moving wrist Sitting Exercises seated tricep press Sitting Exercise tricep press ups from bench Name Reps/Minutes x 8 UT stretch Sitting Exercise in standing this session Name Equipment Used HEP Reps/Minutes 60 sec X 2 each side Comments verbal cues seated shoulder ER Side left Reps/Minutes X 10 Comments Verbal and visual cues table slides Sitting Exercise all four quadruped rhythmic stabilization Name Reps/Minutes 1 min AROM L elbow Side left Resistance 0 Equipment Used 0 Reps/Minutes 10 Comments elbow flex/ext with combined pro/supination from full flexion to full exten Standing Exercises wall push ups Standing Exercise wall push ups off table Name Reps/Minutes 10 high row Resistance level 3 band Reps/Minutes X 15 Comments verbal and visual cues, tact cues at UT Manual Therapy Treatment Consent Patient gave verbal Yes consent for manual treatment Soft Tissue Mobilization L UE Body Location pec, LS, delt, biceps, post cuff, lat, periscap Mobilization Type Cross-Friction,Rolling,Sustained Pressure Intensity/Depth Moderate Body Position Sidelying Comments and hooklying prone T spine mobs Joint Mobilizations scapular mobilization Direction into depression and add Grade IV Body Position Sidelying Reps/Duration X 10 each direction Taping L shoulder Type of Tape Kinesio Tape Skin Inspection I strip ant GH to med scap for posture/shoulder alignment< I strip to Comments UT and levator scap insert to origin Neuro Re-Education Treatment Other Activities KT Tape Comments KT Tape to support L bicep tendon PT-OP-T Assessment and Plan Start: 06/22/24 15:26 Freq: Status: Active Protocol: Document 09/13/24 16:34 KW (Rec: 09/13/24 16:38 KW Laptop) Physical Therapy Assessment Rehab Potential Rehabilitation Excellent Potential Evaluation Complexity Number of Personal 1-2 Factors/ Comorbidities Number of Body 1-2 Systems Impaired Clinical Evolving Presentation at Evaluation Impairments Impairments Activity Tolerance,Coordination,Edema,Functional Activities,Functional Mobility,Pain,Posture,ROM, Strength Goals Three Impairment quick Dash 40% Short Term Goal (STG patient improves quick dash score to 75%w ) STG Duration 6 weeks Two Impairment L shoulder AROM limitations Short Term Goal (STG pt restores full L shoulder ROM - 80% ) One Impairment lack of HEP Short Term Goal (STG Indep with HEP - MET, evolving with new ther-ex ) STG Duration 6 weeks Assessment Summary Assessment encouragement given for decision for surgery in December Physical Therapy Plan Frequency and Duration Frequency of 1-2x/Week Treatment Duration of 12 treatment (weeks) Plan of Care Start 06/22/24 Date Plan of Care End 09/22/24 Date Therapeutic Interventions Therapeutic Home Exercise Program,Joint Mobilizations,Manual Interventions Therapy,Patient/Caregiver Education,Self-Care/Home Management,Soft Tissue Mobilization,Taping,Therapeutic Activities,Therapeutic Exercises
--- NOTE | 2024-09-20 17:11 | PT.OPDS ---
Current Diagnoses Recurrent dislocation, left shoulder (09/20/24) Visit Care Team Role Provider Type SHARONA Colbert Family Provider Advanced Dehydrogenation Operator Head Primary Care Provider Specialty: Medical Address: [address] [place] [address], [id number] Email: [email or web address] Barney Mishra MD Attending Provider Physician Referring Provider Specialty: Orthopedics Orthopedic Surgery Address: [address] [place] [address], [phone] Fax: Email: [email or web address] Visit Number Visit Number 10 Discharge Summary PT OP: Cervical/Upper Extremity Start: 09/20/24 17:07 Freq: Status: Active Protocol: Document 09/20/24 17:07 KW (Rec: 09/20/24 17:11 KW Laptop) Out-Patient Physical Therapy Visit Information Visit Information Visit Type Discharge Summary Visit Note Access Code: [email or web address] Visit Start Time 16:15 Visit Stop Time 16:55 Visit Number 10 Number of HEAD BATCHER Visits 3 Evaluation Information Evaluation Date 06/22/24 Current Condition History of Current Condition Onset Date 06/08/2024 Current Complaints L shoulder dislocation and reduction in ED History of Current 63 yo female walking neighbors big dog when it lunged Condition to [place] and pulled on her arm, pulling her to the ground. Seen by Dr. Mishra last Wednesday, referred for shoulder MRI and PT. She is allowed out of her sling as tolerated. 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 No RC tear, NO Treatments Planned bicep tendon tear. Loose body, AC arthritis and Labrum tear. See MRI report in chart. Treatment Goals Patient/Caregiver return to full use of L UE Goals OP-PT Subjective Patient Comments Patient Comments DC to HEP at home Patient Questionnaires Quick Dash- Upper Extremity Quick Dash UE Score 19 Quick Dash UE 1 to 19% Impaired (Score 1-19) Impairment OP-PT Pain Assessment Location Left Upper Arm Pain Intensity 1 Scale Used Numeric (0 - 10) Description Aching,Cramping,Dull Frequency Frequent Pain Alleviating Cold,Heat,Medication,Inactivity,Position Factors Pain Aggravating ADL's,Activity,Exercise Factors Manual Assessments Soft Tissue Assessment Soft Tissue Mobility L long head bicep and brachio-radialsis with swelling Assessment and stiffness - improved from 1st visit - resolved Joint Mobility Assessment Joint Mobility Gh joint sitting with good congruency Assessment Posture Evaluation Comments Posture Comments FHP, rounded shoulders, increased kyphosis Palpation Assessment Location L bicep Palpation Findings Edema,Soft Tissue Tightness,Spasm,Muscle Guarding Shoulder Goniometric Range of Motion Shoulder Left Active Shoulder ROM WFL No Testing Position Supine Flexion 150 Horizontal Abduction 120 External Rotation at 80 45 degrees Abduction Internal Rotation 90 Internal Rotation 0 Behind Back (text) Comments (+) apprehension test - now negative Elbow/Forearm Range of Motion Elbow/Forearm Left Active Elbow/Forearm ROM No WFL ROM Testing Position Supine Elbow Flexion ( 120 degrees) Elbow Extension ( 0 degrees) Comments lacking 10 degrees full ext with full supination full extension when forearm is in pronation - NOW with full elbow extension Wrist Goniometric Range of Motion Wrist Left Wrist ROM WFL Yes Cardio Equipment Upper Body Ergometer (UBE) Duration (Minutes) 4 Gym Equipment Shuttle Rebound ball toss Exercise Details pink ball toss, for confidence building Therapeutic Exercises Supine Exercises chest strategic debriefing specialist Supine Exercise Name on 02/16 roll Equipment Used HEP Reps/Minutes 2 min Comments verbal and tactile cues for position. shoulder flex ER Supine Exercise Name cane assisted Side left Resistance 0 Equipment Used 0 Reps/Minutes 10 Comments ER in plane of scapula as tolerated Sidelying Exercises AROM ER Side left Equipment Used HEP Reps/Minutes X 10 Comments Verbal cues to avoid moving wrist Sitting Exercises seated tricep press Sitting Exercise tricep press ups from bench Name Reps/Minutes x 8 UT stretch Sitting Exercise in standing this session Name Equipment Used HEP Reps/Minutes 60 sec X 2 each side Comments verbal cues seated shoulder ER Side left Reps/Minutes X 10 Comments Verbal and visual cues table slides Sitting Exercise all four quadruped rhythmic stabilization Name Reps/Minutes 1 min AROM L elbow Side left Resistance 0 Equipment Used 0 Reps/Minutes 10 Comments elbow flex/ext with combined pro/supination from full flexion to full exten Standing Exercises wall push ups Standing Exercise wall push ups off table Name Reps/Minutes 10 high row Resistance level 3 band Reps/Minutes X 15 Comments verbal and visual cues, tact cues at UT elbow extension Resistance 1lb Reps/Minutes X 10 without weight X 10 with weight Comments verbal and visual cues wall slide Standing Exercise on forearms Name Reps/Minutes X 10 isometric reactives Standing Exercise row Name Equipment Used HEP Reps/Minutes level 3 band Comments verbal and visual cues, monitored for pain B UE band Standing Exercise standing B UE extension - not issued for HEP yet Name Equipment Used pink band Reps/Minutes 10 Manual Therapy Treatment Consent Patient gave verbal Yes consent for manual treatment Soft Tissue Mobilization L UE Body Location pec, LS, delt, biceps, post cuff, lat, periscap Mobilization Type Cross-Friction,Rolling,Sustained Pressure Intensity/Depth Moderate Body Position Sidelying Comments and hooklying prone T spine mobs Joint Mobilizations scapular mobilization Direction into depression and add Grade IV Body Position Sidelying Reps/Duration X 10 each direction Taping L shoulder Type of Tape Kinesio Tape Skin Inspection I strip ant GH to med scap for posture/shoulder alignment< I strip to Comments UT and levator scap insert to origin Neuro Re-Education Treatment Other Activities KT Tape Comments KT Tape to support L bicep tendon Self-Care/Home Management Treatment Education Patient Education Body Mechanics,Home Exercise Program,Joint Protection, Pain Management,Posture Other Education use of KT tape removal and application Physical Therapy Assessment Rehab Potential Rehabilitation Excellent Potential Evaluation Complexity Number of Personal 1-2 Factors/ Comorbidities Number of Body 1-2 Systems Impaired Clinical Evolving Presentation at Evaluation Impairments Impairments Activity Tolerance,Coordination,Edema,Functional Activities,Functional Mobility,Pain,Posture,ROM, Strength Goals Three Impairment quick Dash 40% Short Term Goal (STG patient improves quick dash score to 75% MET ) STG Duration 6 weeks Two Impairment L shoulder AROM limitations Short Term Goal (STG pt restores full L shoulder ROM - 80% - [id number]% ) One Impairment lack of HEP Short Term Goal (STG Indep with HEP - MET, evolving with new ther-ex ) MET STG Duration 6 weeks Assessment Summary Assessment encouragement given for decision for surgery in December appropriate to DC to HEP Physical Therapy Plan Frequency and Duration Plan of Care Start 06/22/24 Date Plan of Care End 09/22/24 Date Therapeutic Interventions Therapeutic Home Exercise Program,Joint Mobilizations,Manual Interventions Therapy,Patient/Caregiver Education,Self-Care/Home Management,Soft Tissue Mobilization,Taping,Therapeutic Activities,Therapeutic Exercises
== END 2024-09-25 11:09 | disposition home or self-care (01) ==
LOC: PHYS 17:00
PROVIDERS: Family Provider Registered Nurse Diabetes Educator; PCP Registered Nurse Diabetes Educator; Referring Provider Orthopaedic Surgery Adult Reconstructive Orthopaedic Surgery; Visit Provider Orthopaedic Surgery Adult Reconstructive Orthopaedic Surgery
DX: M24.412 Recurrent dislocation, left shoulder (principal)
CPT/HCPCS: 97110; 97112; 97140; 97161; 97530

== ENCOUNTER → 2024-11-20 08:56 | Outpatient (CLI) | payer BC, SELFPAY ==
[2024-11-20 09:22] LABS: Add Manual Diff / Slide Review NO; Hematocrit 42.9 % (36-46); Hemoglobin 15.2 g/dL (12.0-16.0); Lymphocytes Absolute Auto 2600 /uL (1100-4500); Mean Corpuscular HGB Conc 35.4 % (30-36); Mean Corpuscular Hemoglobin 30.6 PG (26-34); Mean Corpuscular Volume 86.6 fL (80-100); Platelet Count 404 X10^3/uL (150-400)
[2024-11-20 09:26] LABS: Hemoglobin A1C% w Est Avg Glu 5.1 % (4.0-6.0)
[2024-11-20 10:30] LABS: Cholesterol 246 mg/dL (140-199); Glucose 69 mg/dL (70-99); HDL Cholesterol 54 mg/dL (40-60); Triglycerides 163 mg/dL (35-150)
== END ==
PROVIDERS: Family Provider Registered Nurse Diabetes Educator; PCP Registered Nurse Diabetes Educator; Referring Provider Registered Nurse Diabetes Educator; Visit Provider Registered Nurse Diabetes Educator
DX: R79.89 Other specified abnormal findings of blood chemistry (principal); E78.5 Hyperlipidemia, unspecified; R73.01 Impaired fasting glucose
CPT/HCPCS: 36415; 80061; 82947; 83036; 85025

== ENCOUNTER 2025-01-25 09:45 | Outpatient (RCR) | payer BC, SELFPAY ==
--- NOTE | 2024-11-02 14:53 | PT.OIE ---
Current Diagnoses Anterior dislocation of left humerus, subsequent encounter (11/02/24) Past Medical History (Last Reviewed 10/06/24 @ 12:34 by SHARONA Colbert) Abnormal Pap smear of cervix (~1982) Anxiety (~1994) Chest congestion Chondrocalcinosis Chronic back pain Depression (~1994) Dyslipidemia Fatigue Herpes (~1994) History of gastrointestinal disorder (~2014) History of IBS Impaired fasting blood sugar Knee pain Neck pain, chronic Recurrent sinusitis Shoulder pain (~1987) Subclinical hypothyroidism Trigger finger of right thumb Vision disorder Vitamin deficiency Past Surgical History (Last Reviewed 10/06/24 @ 12:34 by SHARONA Colbert) Anesthesia History of shoulder surgery (~1991) Visit Care Team Role Provider Type SHARONA Colbert Family Provider Advanced Icu Nurse Primary Care Provider Specialty: Medical Address: [address] [place] [address], [facility] Email: [email or web address] John Perkins MD Attending Provider Physician Referring Provider Specialty: Orthopedic Surgery Address: [address] [place] [address], [facility] Email: [email or web address] Physical Therapy Initial Evaluation PT OP: Cervical/Upper Extremity Start: 11/02/24 09:42 Freq: Status: Active Protocol: Document 11/02/24 09:43 CHANDRAKANT (Rec: 11/02/24 10:07 CHANDRAKANT [id number]) Out-Patient Physical Therapy Visit Information Visit Information Visit Type Initial Evaluation Visit Start Time 11:30 Visit Stop Time 12:15 Visit Number 1 Number of GAS METER PROVER Visits 0 Progress Note Due 12/02/24 OP-PT Subjective Patient Comments Patient Comments History of current diagnosis: Patient reports a history of chronic L shoulder dislocations starting 40+ years ago. Her most recent dislocation was in May 2024 when she was walking her dog and the dog pulled hard on the leash. She reports she was in a sling for four weeks then did PT for 8 weeks. She reports she worked on things including ROM and gentle strengthening. Precautions: Lifting heavy items with L arm. Lifting overhead with L arm. 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 Does not plan to return to this job. Not sure if she will return to work at this time. Physical activities/ hobbies: Yard work (week eating), has grandchild Pain location: L upper trap region Pain description: achy, dull Pain (current): 2/10 Pain (worst): 2/10 Pain (best): 1/10 Function prior to injury: Independent with all ADLs Function current: Independent with all ADLs - limited with reaching overhead, lifting with involved UE, washing windows, completing yard work (picking up fallen branches, weed eating) Patient goals: Improve strength in shoulder, return to yard work activities Shoulder Goniometric Range of Motion Shoulder L active Shoulder ROM WFL Yes Testing Position Supine Flexion 160 Abduction 100 R active Shoulder ROM WFL Yes Testing Position Supine Flexion 180 Abduction 180 External Rotation at 90 90 degrees Abduction Internal Rotation 40 Right Shoulder ROM WFL Yes Testing Position Supine Flexion 180 Abduction 180 External Rotation at 90 90 degrees Abduction Internal Rotation 40 Comments Passive ROM Left Shoulder ROM WFL No Testing Position Supine Flexion 165 Abduction 150 External Rotation at 80 90 degrees Abduction Internal Rotation 25 Comments Passive ROM Shoulder Strength Shoulder Manual Muscle Testing Left Flexion 4 Good Abduction (C5) 3+ Fair+ External Rotation 4 Good Internal Rotation 4 Good Right Flexion 5 Normal Abduction (C5) 5 Normal External Rotation 5 Normal Internal Rotation 5 Normal Therapeutic Exercises Standing Exercises Band IR Side left Resistance level 3 Equipment Used band Reps/Minutes 2x10 Band ER Side left Resistance level 3 Equipment Used band Reps/Minutes 2x10 Band scaption Side left Resistance level 1 Equipment Used band Reps/Minutes 2x10 Comments cues for scapular mechanics Band flexion Side left Resistance Level 3 Equipment Used band Reps/Minutes 2x10 Comments cues for shoulder mechanics Physical Therapy Assessment Rehab Potential Rehabilitation Good Potential Evaluation Complexity Number of Personal 0 Factors/ Comorbidities Number of Body 1-2 Systems Impaired Clinical Stable Presentation at Evaluation Impairments Impairments Activity Tolerance,Coordination,Functional Activities, Functional Mobility,Pain,Posture,ROM,Strength Goals Three Impairment Gross L shoulder function Short Term Goal (STG Patient will report a GROC of 30% in order to show an ) increase in self-perceived function. STG Duration 3 weeks Engraving Patternmaker Goal (LTG) Patient will report a GROC of 60% in order to show an increase in self-perceived function. LTG Duration 6 weeks Two Impairment L shoulder strength Short Term Goal (STG Patient will demonstrate an increase in L shoulder ) abduction strength on MMT to 4/5 in order to better function with lifting items overhead. STG Duration 3 weeks Assisted Goal (LTG) Patient will demonstrate an increase in L shoulder abduction strength on MMT to 5/5 in order to better function with lifting items overhead. LTG Duration 6 weeks One Impairment L shoulder ROM Short Term Goal (STG Patient will demonstrate an increase in L shoulder ) abduction AROM to 150 in order to better function with reaching to her side. STG Duration 3 weeks Assisted Goal (LTG) Patient will demonstrate an increase in L shoulder abduction AROM to 160 in order to better function with reaching to her side. LTG Duration 6 weeks Assessment Summary Assessment Patient presenting to PT with complaints of L shoulder pain and a history of chronic instability and dislocations. Functional deficits include yard work, reaching, and lifting with her involved shoulder. Objective investigation revealed deficits in L shoulder strength (see objective measures: flexion, abduction, ER MMTs), L shoulder ROM (See objective measures: flexion, abduction, ER A/PROM). Presentation is consistent with weakness secondary to chronic dislocations and recent immobility and patient will benefit from PT to address deficits and return to prior level of function. Physical Therapy Plan Frequency and Duration Frequency of 2x/Week Treatment Duration of 12 treatment (weeks) Plan of Care Start 11/02/24 Date Plan of Care End 01/31/25 Date Therapeutic Interventions Therapeutic Coordination Training,Home Exercise Program,Manual Interventions Therapy,Neuromuscular Re-education,Patient/Caregiver Education,Soft Tissue Mobilization,Taping,Therapeutic Activities,Therapeutic Exercises Modalities Electric Stimulation,Hot Packs Next Visit Focus/Plan Next Note Type Treatment Note Next Visit Plan Add more shoulder strengthening exercises in non-end ranges of motion. Being particularly cautions at end ranges of ER and horizontal abduction. Access Code: [email or web address] URL: [email or web address] Date: 11/02/2024 Prepared by: Didi Abad Exercises - Standing Shoulder Flexion with Resistance - 1 x daily - 3-4 x weekly - 3 sets - 10 reps - 3 hold - Standing Shoulder Scaption with Resistance - 1 x daily - 3-4 x weekly - 3 sets - 10 reps - 3 hold - Shoulder External Rotation - 1 x daily - 3-4 x weekly - 3 sets - 10 reps - Standing Shoulder Internal Rotation with Anchored Resistance - 1 x daily - 3-4 x weekly - 3 sets - 10 reps - 3 hold
--- NOTE | 2024-11-02 14:55 | PT.OPPOC ---
Physical, Occupational & Speech Therapy At [facility] Current Diagnoses Anterior dislocation of left humerus, subsequent encounter (11/02/24) Visit Care Team Role Provider Type SHARONA Colbert Family Provider Advanced Battalion Chief Primary Care Provider Specialty: Medical Address: [address] [place] [address], [id number] Email: [email or web address] John Perkins MD Attending Provider Physician Referring Provider Specialty: Orthopedic Surgery Address: [address] [place] [address], [phone] Email: [email or web address] Plan Of Care PT OP: Cervical/Upper Extremity Start: 11/02/24 09:42 Freq: Status: Active Protocol: Document 11/02/24 09:43 CHANDRAKANT (Rec: 11/02/24 10:07 CHANDRAKANT [id number]) Out-Patient Physical Therapy Visit Information Visit Information Visit Type Initial Evaluation Visit Start Time 11:30 Visit Stop Time 12:15 Visit Number 1 Number of LIMITED RADIOLOGY TECHNICIAN Visits 0 Progress Note Due 12/02/24 OP-PT Subjective Patient Comments Patient Comments History of current diagnosis: Patient reports a history of chronic L shoulder dislocations starting 40+ years ago. Her most recent dislocation was in May 2024 when she was walking her dog and the dog pulled hard on the leash. She reports she was in a sling for four weeks then did PT for 8 weeks. She reports she worked on things including ROM and gentle strengthening. Precautions: Lifting heavy items with L arm. Lifting overhead with L arm. 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 Does not plan to return to this job. Not sure if she will return to work at this time. Physical activities/ hobbies: Yard work (week eating), has grandchild Pain location: L upper trap region Pain description: achy, dull Pain (current): 2/10 Pain (worst): 2/10 Pain (best): 1/10 Function prior to injury: Independent with all ADLs Function current: Independent with all ADLs - limited with reaching overhead, lifting with involved UE, washing windows, completing yard work (picking up fallen branches, weed eating) Patient goals: Improve strength in shoulder, return to yard work activities Shoulder Goniometric Range of Motion Shoulder Measured in Degrees L active Shoulder ROM WFL Yes Testing Position Supine Flexion 160 Abduction 100 R active Shoulder ROM WFL Yes Testing Position Supine Flexion 180 Abduction 180 External Rotation at 90 90 degrees Abduction Internal Rotation 40 Right Shoulder ROM WFL Yes Testing Position Supine Flexion 180 Abduction 180 External Rotation at 90 90 degrees Abduction Internal Rotation 40 Comments Passive ROM Left Shoulder ROM WFL No Testing Position Supine Flexion 165 Abduction 150 External Rotation at 80 90 degrees Abduction Internal Rotation 25 Comments Passive ROM Shoulder Strength Shoulder Manual Muscle Testing Left Flexion 4 Good Abduction (C5) 3+ Fair+ External Rotation 4 Good Internal Rotation 4 Good Right Flexion 5 Normal Abduction (C5) 5 Normal External Rotation 5 Normal Internal Rotation 5 Normal Therapeutic Exercises Standing Exercises Band IR Side left Resistance level 3 Equipment Used band Reps/Minutes 2x10 Band ER Side left Resistance level 3 Equipment Used band Reps/Minutes 2x10 Band scaption Side left Resistance level 1 Equipment Used band Reps/Minutes 2x10 Comments cues for scapular mechanics Band flexion Side left Resistance Level 3 Equipment Used band Reps/Minutes 2x10 Comments cues for shoulder mechanics Physical Therapy Assessment Rehab Potential Rehabilitation Good Potential Evaluation Complexity Number of Personal 0 Factors/ Comorbidities Number of Body 1-2 Systems Impaired Clinical Stable Presentation at Evaluation Impairments Impairments Activity Tolerance,Coordination,Functional Activities, Functional Mobility,Pain,Posture,ROM,Strength Goals Three Impairment Gross L shoulder function Short Term Goal (STG Patient will report a GROC of 30% in order to show an ) increase in self-perceived function. STG Duration 3 weeks [facility] Goal (LTG) Patient will report a GROC of 60% in order to show an increase in self-perceived function. LTG Duration 6 weeks Two Impairment L shoulder strength Short Term Goal (STG Patient will demonstrate an increase in L shoulder ) abduction strength on MMT to 4/5 in order to better function with lifting items overhead. STG Duration 3 weeks [facility] Goal (LTG) Patient will demonstrate an increase in L shoulder abduction strength on MMT to 5/5 in order to better function with lifting items overhead. LTG Duration 6 weeks One Impairment L shoulder ROM Short Term Goal (STG Patient will demonstrate an increase in L shoulder ) abduction AROM to 150 in order to better function with reaching to her side. STG Duration 3 weeks Floor And Wall Applier Liquid Goal (LTG) Patient will demonstrate an increase in L shoulder abduction AROM to 160 in order to better function with reaching to her side. LTG Duration 6 weeks Assessment Summary Assessment Patient presenting to PT with complaints of L shoulder pain and a history of chronic instability and dislocations. Functional deficits include yard work, reaching, and lifting with her involved shoulder. Objective investigation revealed deficits in L shoulder strength (see objective measures: flexion, abduction, ER MMTs), L shoulder ROM (See objective measures: flexion, abduction, ER A/PROM). Presentation is consistent with weakness secondary to chronic dislocations and recent immobility and patient will benefit from PT to address deficits and return to prior level of function. Physical Therapy Plan Frequency and Duration Frequency of 2x/Week Treatment Duration of 12 treatment (weeks) Plan of Care Start 11/02/24 Date Plan of Care End 01/31/25 Date Therapeutic Interventions Therapeutic Coordination Training,Home Exercise Program,Manual Interventions Therapy,Neuromuscular Re-education,Patient/Caregiver Education,Soft Tissue Mobilization,Taping,Therapeutic Activities,Therapeutic Exercises Modalities Electric Stimulation,Hot Packs Next Visit Focus/Plan Next Note Type Treatment Note Next Visit Plan Add more shoulder strengthening exercises in non-end ranges of motion. Being particularly cautions at end ranges of ER and horizontal abduction. Access Code: [email or web address] URL: [email or web address] Date: 11/02/2024 Prepared by: Didi Abad Exercises - Standing Shoulder Flexion with Resistance - 1 x daily - 3-4 x weekly - 3 sets - 10 reps - 3 hold - Standing Shoulder Scaption with Resistance - 1 x daily - 3-4 x weekly - 3 sets - 10 reps - 3 hold - Shoulder External Rotation - 1 x daily - 3-4 x weekly - 3 sets - 10 reps - Standing Shoulder Internal Rotation with Anchored Resistance - 1 x daily - 3-4 x weekly - 3 sets - 10 reps - 3 hold Plan of Care Dates Plan of Care Start Date 11/02/24 Plan of Care End Date 01/31/25 Electronically Signed by: Didi Abad, PAM 11/02/24 [id number] If you are in agreement with this Plan of Care, please return a signed and dated copy. I have reviewed this Plan of Care and certify that the skilled therapy services above are required to meet the patient?s needs. Physician Signature Date Printed Name and Credentials Clinical Instructor Signature Printed Name and Credentials
--- NOTE | 2024-11-07 11:30 | PT.OTN ---
Current Diagnoses Anterior dislocation of left humerus, subsequent encounter (11/07/24) Physical Therapy Treatment Note PT OP: Cervical/Upper Extremity Start: 11/02/24 09:42 Freq: Status: Active Protocol: Document 11/07/24 10:52 JZ (Rec: 11/07/24 11:29 JZ [id number]) Out-Patient Physical Therapy Visit Information Visit Information Visit Type Treatment Note Visit Start Time 10:50 Visit Stop Time 11:30 Visit Number 2 Number of PRECINCT COMMANDING OFFICER Visits 0 Progress Note Due 12/02/24 OP-PT Subjective Patient Comments Patient Comments Patient reports her shoulder felt good after last session. She had no pain but reports a little muscle soreness. Therapeutic Exercises Standing Exercises Band Row Side left Resistance green band Reps/Minutes 3x10 Standing band horizontal adduction Side left Resistance green band Reps/Minutes 3x10 Scapular protraction in weight bearing Side bilateral Equipment Used elevated table Reps/Minutes 2x20 Ball on wall circles Resistance 2# ball Reps/Minutes x20 each direction Comments Cues for scapular protraction UE weight shifts from table Equipment Used table Reps/Minutes x20 Band IR Side left Resistance purple Equipment Used band Reps/Minutes 3x10 Band ER Side left Resistance purple Equipment Used band Reps/Minutes 3x10 Band scaption Side left Resistance 3# Equipment Used Dumbell Reps/Minutes 3x10 Comments cues for scapular mechanics Band flexion Side left Resistance 5# Equipment Used Dumbell Reps/Minutes 3x10 Comments cues for shoulder mechanics Physical Therapy Assessment Goals Three Impairment Gross L shoulder function Short Term Goal (STG Patient will report a GROC of 30% in order to show an ) increase in self-perceived function. STG Duration 3 weeks Real Time Analyst Goal (LTG) Patient will report a GROC of 60% in order to show an increase in self-perceived function. LTG Duration 6 weeks Two Impairment L shoulder strength Short Term Goal (STG Patient will demonstrate an increase in L shoulder ) abduction strength on MMT to 4/5 in order to better function with lifting items overhead. STG Duration 3 weeks Real Time Analyst Goal (LTG) Patient will demonstrate an increase in L shoulder abduction strength on MMT to 5/5 in order to better function with lifting items overhead. LTG Duration 6 weeks One Impairment L shoulder ROM Short Term Goal (STG Patient will demonstrate an increase in L shoulder ) abduction AROM to 150 in order to better function with reaching to her side. STG Duration 3 weeks [facility] Goal (LTG) Patient will demonstrate an increase in L shoulder abduction AROM to 160 in order to better function with reaching to her side. LTG Duration 6 weeks Assessment Summary Assessment Treatment focused on progressing shoulder strengthening in open and closed chain. Patient tolerated treatment well with no increases in pain levels. Plan next session to progress closed chain as appropriate and continue with plan of care. Physical Therapy Plan Frequency and Duration Frequency of 2x/Week Treatment Duration of 12 treatment (weeks) Plan of Care Start 11/02/24 Date Plan of Care End 01/31/25 Date Next Visit Focus/Plan Next Note Type Treatment Note Next Visit Plan Progress weight bearing exercises. Access Code: [email or web address] URL: [email or web address] Date: 11/07/2024 Prepared by: Didi Abad Exercises - Standing Shoulder Flexion with Resistance - 1 x daily - 3-4 x weekly - 3 sets - 10 reps - 3 hold - Standing Shoulder Scaption with Resistance - 1 x daily - 3-4 x weekly - 3 sets - 10 reps - 3 hold - Shoulder External Rotation - 1 x daily - 3-4 x weekly - 3 sets - 10 reps - Standing Shoulder Internal Rotation with Anchored Resistance - 1 x daily - 3-4 x weekly - 3 sets - 10 reps - 3 hold - Full Plank with Scapular Protraction Retraction AROM - 1 x daily - 3-4 x weekly - 3 sets - 10 reps - 3 hold - Standing Shoulder Horizontal Adduction with Anchored Resistance - 1 x daily - 3-4 x weekly - 3 sets - 10 reps - 3 hold - Standing Single Arm Row with Resistance Thumb Up - 1 x daily - 3-4 x weekly - 3 sets - 10 reps - 3 hold
--- NOTE | 2024-11-14 12:56 | PT.OTN ---
Current Diagnoses Anterior dislocation of left humerus, subsequent encounter (11/14/24) Physical Therapy Treatment Note PT OP: Cervical/Upper Extremity Start: 11/02/24 09:42 Freq: Status: Active Protocol: Document 11/14/24 11:27 JKal (Rec: 11/14/24 12:17 CHANDRAKANT [id number]) Out-Patient Physical Therapy Visit Information Visit Information Visit Type Treatment Note Visit Start Time 11:35 Visit Stop Time 12:15 Visit Number 3 Number of PACKER DENTURE Visits 0 Progress Note Due 12/02/24 OP-PT Subjective Patient Comments Patient Comments Patient reports her shoulder has been a little sore generally. She reports no increased pain after last session. Therapeutic Exercises Standing Exercises Band ER at 9090 flexion Side left Equipment Used pink band Reps/Minutes 3x10 Weight bearing shoulder taps Side bilateral Equipment Used table for elevation Reps/Minutes 3x10 each side Band Row Side left Resistance purple band Reps/Minutes 3x10 Standing band horizontal adduction Side left Resistance blue band Reps/Minutes 3x10 Ball on wall circles Resistance 4.4# ball Reps/Minutes 2x15 each direction Comments Cues for scapular protraction UE weight shifts from table Equipment Used table Reps/Minutes x10 Band IR Side left Resistance purple Equipment Used band Reps/Minutes 3x10 Band ER Side left Resistance purple Equipment Used band Reps/Minutes 3x10 Band scaption Side left Resistance 3# Equipment Used Dumbell Reps/Minutes 3x10 Comments cues for scapular mechanics Band flexion Side left Resistance 5# Equipment Used Dumbell Reps/Minutes 3x10 Comments cues for shoulder mechanics Physical Therapy Assessment Goals Three Impairment Gross L shoulder function Short Term Goal (STG Patient will report a GROC of 30% in order to show an ) increase in self-perceived function. STG Duration 3 weeks [facility] Goal (LTG) Patient will report a GROC of 60% in order to show an increase in self-perceived function. LTG Duration 6 weeks Two Impairment L shoulder strength Short Term Goal (STG Patient will demonstrate an increase in L shoulder ) abduction strength on MMT to 4/5 in order to better function with lifting items overhead. STG Duration 3 weeks [facility] Goal (LTG) Patient will demonstrate an increase in L shoulder abduction strength on MMT to 5/5 in order to better function with lifting items overhead. LTG Duration 6 weeks One Impairment L shoulder ROM Short Term Goal (STG Patient will demonstrate an increase in L shoulder ) abduction AROM to 150 in order to better function with reaching to her side. STG Duration 3 weeks [facility] Goal (LTG) Patient will demonstrate an increase in L shoulder abduction AROM to 160 in order to better function with reaching to her side. LTG Duration 6 weeks Assessment Summary Assessment Treatment focused on progressing shoulder strengthening and weight bearing strengthening. Patient tolerated treatment well with no increases in pain levels. Plan next session to continue with progressions and follow up on response to today's session. Physical Therapy Plan Frequency and Duration Frequency of 2x/Week Treatment Duration of 12 treatment (weeks) Plan of Care Start 11/02/24 Date Plan of Care End 01/31/25 Date Next Visit Focus/Plan Next Note Type Treatment Note Next Visit Plan Progress strengthening as tolerated. Access Code: [email or web address] URL: [email or web address] Date: 11/07/2024 Prepared by: Didi Abad Exercises - Standing Shoulder Flexion with Resistance - 1 x daily - 3-4 x weekly - 3 sets - 10 reps - 3 hold - Standing Shoulder Scaption with Resistance - 1 x daily - 3-4 x weekly - 3 sets - 10 reps - 3 hold - Shoulder External Rotation - 1 x daily - 3-4 x weekly - 3 sets - 10 reps - Standing Shoulder Internal Rotation with Anchored Resistance - 1 x daily - 3-4 x weekly - 3 sets - 10 reps - 3 hold - Full Plank with Scapular Protraction Retraction AROM - 1 x daily - 3-4 x weekly - 3 sets - 10 reps - 3 hold - Standing Shoulder Horizontal Adduction with Anchored Resistance - 1 x daily - 3-4 x weekly - 3 sets - 10 reps - 3 hold - Standing Single Arm Row with Resistance Thumb Up - 1 x daily - 3-4 x weekly - 3 sets - 10 reps - 3 hold
--- NOTE | 2024-11-16 18:11 | PT.OTN ---
Current Diagnoses Anterior dislocation of left humerus, subsequent encounter (11/16/24) Physical Therapy Treatment Note PT OP: Cervical/Upper Extremity Start: 11/02/24 09:42 Freq: Status: Active Protocol: Document 11/16/24 11:08 NBM (Rec: 11/16/24 11:39 NBM Laptop) Out-Patient Physical Therapy Visit Information Visit Information Visit Type Treatment Note Visit Start Time 10:55 Visit Stop Time 11:35 Visit Number 4 Number of WINE MAKER Visits 1 Progress Note Due 12/02/24 Evaluation Information Evaluation Date 11/02/24 OP-PT Subjective Patient Comments Patient Comments Princess reports some soreness after doing exercises but it goes away. She's been cleaning up garden, weeding. Therapeutic Exercises Sitting Exercises cervical stretches Sitting Exercise added to HEP: 1. UT 2. LS 3. Scalenes Name Side left Reps/Minutes 30 ea Comments cues for chin tuck, painfree range Standing Exercises Band ER at 9090 flexion Side left Equipment Used pink band Reps/Minutes x10 Comments cues for scap setting and UT overactivation w/ fatigue Band Row Side left Resistance purple band Reps/Minutes x10 Comments cues for scap setting and UT overactivation w/ fatigue Band IR Side left Resistance purple Equipment Used band Reps/Minutes x10 Band ER Side left Resistance purple Equipment Used band Reps/Minutes x10 Therapeutic Activity Therapeutic Activity Scapular mechanics Name w/ LUE functional overhead reach w/ gym cupboard to simulate home Reps/Minutes AROM x 3, placing and retrieving tissue box x3 Comments pt demos L UT overactivation initially, improved scapular mechanics following tactile cues and education . Manual Therapy Treatment Consent Patient gave verbal Yes consent for manual treatment Soft Tissue Mobilization L shoulder Body Location UT, LS Mobilization Type Cross-Friction,Rolling Intensity/Depth Moderate Body Position Sitting Comments Circular strokes distal to proximal length - positive feedback response. Self-Care/Home Management Treatment Education Patient Education Body Mechanics,Home Exercise Program,Joint Protection, Pain Management,Posture Other Education HEP review. Edu to pt re: scapular mechanics in standing and with overhead reach and breathwork to reduce UT m. overactivation, and incorporation of improved self-awareness into HE and ADLs. HEP: added cervical stretches (UT, LS, Scalenes) - HO given. Physical Therapy Assessment Goals Three Impairment Gross L shoulder function Short Term Goal (STG Patient will report a GROC of 30% in order to show an ) increase in self-perceived function. STG Duration 3 weeks Gre Tutor Goal (LTG) Patient will report a GROC of 60% in order to show an increase in self-perceived function. LTG Duration 6 weeks Two Impairment L shoulder strength Short Term Goal (STG Patient will demonstrate an increase in L shoulder ) abduction strength on MMT to 4/5 in order to better function with lifting items overhead. STG Duration 3 weeks Snf Goal (LTG) Patient will demonstrate an increase in L shoulder abduction strength on MMT to 5/5 in order to better function with lifting items overhead. LTG Duration 6 weeks One Impairment L shoulder ROM Short Term Goal (STG Patient will demonstrate an increase in L shoulder ) abduction AROM to 150 in order to better function with reaching to her side. STG Duration 3 weeks Gre Tutor Goal (LTG) Patient will demonstrate an increase in L shoulder abduction AROM to 160 in order to better function with reaching to her side. LTG Duration 6 weeks Assessment Summary Assessment Treatment focus on scapular setting education with functional overhead reach, and incorporating postural awareness into resisted HEP. Princess is better able to reach overhead into cupboard for object placement and retrieval with reduced L Upper Trapezius m. overactivation and improved scapular awareness. Added to HEP w/ emphasis on posture and breathwork: cervical stretches for Upper trapezius, Levator scapula, and Scalenes - HO given. Physical Therapy Plan Frequency and Duration Frequency of 2x/Week Treatment Duration of 12 treatment (weeks) Plan of Care Start 11/02/24 Date Plan of Care End 01/31/25 Date Therapeutic Interventions Therapeutic Coordination Training,Home Exercise Program,Manual Interventions Therapy,Neuromuscular Re-education,Patient/Caregiver Education,Soft Tissue Mobilization,Taping,Therapeutic Activities,Therapeutic Exercises Modalities Electric Stimulation,Hot Packs Next Visit Focus/Plan Next Note Type Treatment Note Next Visit Plan Progress strengthening as tolerated. Access Code: [email or web address] URL: [email or web address] Date: 11/07/2024 Prepared by: Didi Abad Exercises - Standing Shoulder Flexion with Resistance - 1 x daily - 3-4 x weekly - 3 sets - 10 reps - 3 hold - Standing Shoulder Scaption with Resistance - 1 x daily - 3-4 x weekly - 3 sets - 10 reps - 3 hold - Shoulder External Rotation - 1 x daily - 3-4 x weekly - 3 sets - 10 reps - Standing Shoulder Internal Rotation with Anchored Resistance - 1 x daily - 3-4 x weekly - 3 sets - 10 reps - 3 hold - Full Plank with Scapular Protraction Retraction AROM - 1 x daily - 3-4 x weekly - 3 sets - 10 reps - 3 hold - Standing Shoulder Horizontal Adduction with Anchored Resistance - 1 x daily - 3-4 x weekly - 3 sets - 10 reps - 3 hold - Standing Single Arm Row with Resistance Thumb Up - 1 x daily - 3-4 x weekly - 3 sets - 10 reps - 3 hold
--- NOTE | 2024-11-21 12:15 | PT.OTN ---
Current Diagnoses Anterior dislocation of left humerus, subsequent encounter (11/21/24) Physical Therapy Treatment Note PT OP: Cervical/Upper Extremity Start: 11/02/24 09:42 Freq: Status: Active Protocol: Document 11/21/24 11:33 JZ (Rec: 11/21/24 12:14 JKal [id number]) Out-Patient Physical Therapy Visit Information Visit Information Visit Type Treatment Note Visit Start Time 11:33 Visit Stop Time 12:13 Visit Number 4 Number of ENGINE ASSEMBLER Visits 1 Progress Note Due 12/02/24 OP-PT Subjective Patient Comments Patient Comments Patient reports her shoulder is feeling good. Slight soreness in her L lateral neck. Therapeutic Exercises Standing Exercises Elevated table shoulder airplanes Standing Exercise Transverse plane rotation over shoulder (horizontal Name abduction, closed chain Reps/Minutes 3x10 each side Comments Feet close to table Weight bearing shoulder taps Side bilateral Equipment Used table for elevation Reps/Minutes 3x10 each side Band Row Standing Exercise Cable column Name Side left Resistance 20# Reps/Minutes 4x10 Standing band horizontal adduction Side left Resistance level 2 band Reps/Minutes x10 Comments Limited end range horizontal abduction due to symptoms Ball on wall circles Resistance 4.4# ball Reps/Minutes x10 in flexion, x10 in scaption, x10 in abduction Comments Cues for scapular protraction UE weight shifts from table Equipment Used table Reps/Minutes x10 warm up Band IR Side left Resistance purple Equipment Used band Reps/Minutes 2x10 Band ER Side left Resistance purple Equipment Used band Reps/Minutes 2x10 Band scaption Side left Resistance 4# Equipment Used Dumbell Reps/Minutes 3x10 Comments cues for scapular mechanics Band flexion Side left Resistance 5# Equipment Used Dumbell Reps/Minutes 3x10 Comments cues for shoulder mechanics Physical Therapy Assessment Goals Three Impairment Gross L shoulder function Short Term Goal (STG Patient will report a GROC of 30% in order to show an ) increase in self-perceived function. STG Duration 3 weeks [facility] Goal (LTG) Patient will report a GROC of 60% in order to show an increase in self-perceived function. LTG Duration 6 weeks Two Impairment L shoulder strength Short Term Goal (STG Patient will demonstrate an increase in L shoulder ) abduction strength on MMT to 4/5 in order to better function with lifting items overhead. STG Duration 3 weeks [employer] Engineer Goal (LTG) Patient will demonstrate an increase in L shoulder abduction strength on MMT to 5/5 in order to better function with lifting items overhead. LTG Duration 6 weeks One Impairment L shoulder ROM Short Term Goal (STG Patient will demonstrate an increase in L shoulder ) abduction AROM to 150 in order to better function with reaching to her side. STG Duration 3 weeks [facility] Goal (LTG) Patient will demonstrate an increase in L shoulder abduction AROM to 160 in order to better function with reaching to her side. LTG Duration 6 weeks Assessment Summary Assessment Treatment focused on progressing strengthening exercises as tolerated. Patient tolerated treatment well with no lasting increases in pain levels. Plan next session to continue with plan of care focused on progressive shoulder re-loading. Physical Therapy Plan Frequency and Duration Frequency of 2x/Week Treatment Duration of 12 treatment (weeks) Plan of Care Start 11/02/24 Date Plan of Care End 01/31/25 Date Next Visit Focus/Plan Next Note Type Treatment Note Next Visit Plan Progress strengthening as tolerated. Access Code: [email or web address] URL: [email or web address] Date: 11/07/2024 Prepared by: Didi Abad Exercises - Standing Shoulder Flexion with Resistance - 1 x daily - 3-4 x weekly - 3 sets - 10 reps - 3 hold - Standing Shoulder Scaption with Resistance - 1 x daily - 3-4 x weekly - 3 sets - 10 reps - 3 hold - Shoulder External Rotation - 1 x daily - 3-4 x weekly - 3 sets - 10 reps - Standing Shoulder Internal Rotation with Anchored Resistance - 1 x daily - 3-4 x weekly - 3 sets - 10 reps - 3 hold - Full Plank with Scapular Protraction Retraction AROM - 1 x daily - 3-4 x weekly - 3 sets - 10 reps - 3 hold - Standing Shoulder Horizontal Adduction with Anchored Resistance - 1 x daily - 3-4 x weekly - 3 sets - 10 reps - 3 hold - Standing Single Arm Row with Resistance Thumb Up - 1 x daily - 3-4 x weekly - 3 sets - 10 reps - 3 hold
--- NOTE | 2024-11-24 13:00 | PT.OTN ---
Current Diagnoses Anterior dislocation of left humerus, subsequent encounter (11/24/24) Physical Therapy Treatment Note PT OP: Cervical/Upper Extremity Start: 11/02/24 09:42 Freq: Status: Active Protocol: Document 11/24/24 11:39 JZ (Rec: 11/24/24 12:21 JZ [id number]) Out-Patient Physical Therapy Visit Information Visit Information Visit Type Treatment Note Visit Start Time 11:38 Visit Stop Time 12:18 Visit Number 6 Number of PUBLIC ADDRESS SYSTEM INSTALLER Visits 0 Progress Note Due 12/02/24 OP-PT Subjective Patient Comments Patient Comments Patient reports slight muscle soreness after last session. Her shoulder is feeling good today. Therapeutic Exercises Standing Exercises Elevated table shoulder airplanes Standing Exercise Transverse plane rotation over shoulder (horizontal Name abduction, closed chain Reps/Minutes 3x10 each side Comments Feet close to table Weight bearing shoulder taps Side bilateral Equipment Used table for elevation Reps/Minutes 2x10 each side Band Row Standing Exercise Cable column Name Side left Resistance 25# Reps/Minutes 3x10 Standing band horizontal adduction Side left Resistance green band Reps/Minutes 3x10 Band IR Side left Resistance purple Equipment Used band Reps/Minutes 3x10 Band ER Side left Resistance purple Equipment Used band Reps/Minutes 3x10 Band scaption Side left Resistance 3# Equipment Used Dumbell Reps/Minutes 3x10 Comments cues for scapular mechanics Band flexion Side left Resistance 5# Equipment Used Dumbell Reps/Minutes 3x10 Physical Therapy Assessment Goals Three Impairment Gross L shoulder function Short Term Goal (STG Patient will report a GROC of 30% in order to show an ) increase in self-perceived function. STG Duration 3 weeks Assisted Goal (LTG) Patient will report a GROC of 60% in order to show an increase in self-perceived function. LTG Duration 6 weeks Two Impairment L shoulder strength Short Term Goal (STG Patient will demonstrate an increase in L shoulder ) abduction strength on MMT to 4/5 in order to better function with lifting items overhead. STG Duration 3 weeks Assisted Goal (LTG) Patient will demonstrate an increase in L shoulder abduction strength on MMT to 5/5 in order to better function with lifting items overhead. LTG Duration 6 weeks One Impairment L shoulder ROM Short Term Goal (STG Patient will demonstrate an increase in L shoulder ) abduction AROM to 150 in order to better function with reaching to her side. STG Duration 3 weeks Assisted Goal (LTG) Patient will demonstrate an increase in L shoulder abduction AROM to 160 in order to better function with reaching to her side. LTG Duration 6 weeks Assessment Summary Assessment Treatment focused on progressing strengthening exercises as tolerated. Patient tolerated treatment well with no lasting increases in pain levels. Plan next session to continue with plan of care focused on progressive shoulder re-loading. Physical Therapy Plan Frequency and Duration Frequency of 2x/Week Treatment Duration of 12 treatment (weeks) Plan of Care Start 11/02/24 Date Plan of Care End 01/31/25 Date Next Visit Focus/Plan Next Note Type Treatment Note Next Visit Plan Progress strengthening as tolerated. Access Code: [email or web address] URL: [email or web address] Date: 11/07/2024 Prepared by: Didi Abad Exercises - Standing Shoulder Flexion with Resistance - 1 x daily - 3-4 x weekly - 3 sets - 10 reps - 3 hold - Standing Shoulder Scaption with Resistance - 1 x daily - 3-4 x weekly - 3 sets - 10 reps - 3 hold - Shoulder External Rotation - 1 x daily - 3-4 x weekly - 3 sets - 10 reps - Standing Shoulder Internal Rotation with Anchored Resistance - 1 x daily - 3-4 x weekly - 3 sets - 10 reps - 3 hold - Full Plank with Scapular Protraction Retraction AROM - 1 x daily - 3-4 x weekly - 3 sets - 10 reps - 3 hold - Standing Shoulder Horizontal Adduction with Anchored Resistance - 1 x daily - 3-4 x weekly - 3 sets - 10 reps - 3 hold - Standing Single Arm Row with Resistance Thumb Up - 1 x daily - 3-4 x weekly - 3 sets - 10 reps - 3 hold
--- NOTE | 2024-11-28 12:16 | PT.OPPN ---
Current Diagnoses Anterior dislocation of left humerus, subsequent encounter (11/28/24) Physical Therapy Progress Note PT OP: Cervical/Upper Extremity Start: 11/02/24 09:42 Freq: Status: Active Protocol: Document 11/28/24 11:34 JZ (Rec: 11/28/24 12:15 JKal [id number]) Out-Patient Physical Therapy Visit Information Visit Information Visit Type Progress Note Visit Start Time 11:34 Visit Stop Time 12:15 Visit Number 7 Number of SPLITTING MACHINE FEEDER Visits 0 Progress Note Due 12/28/24 OP-PT Subjective Patient Comments Patient Comments Patient reports her shoulder is doing well overall. She reports her GROC is 80% since the injury and a GROC of 15%. She feels her strength has improved although she is still worried she may dislocate her shoulder again. Shoulder Goniometric Range of Motion Shoulder Measured in Degrees L active Shoulder ROM WFL Yes Testing Position Supine Flexion 165 Abduction 145 R active Shoulder ROM WFL Yes Testing Position Supine Flexion 180 Abduction 180 External Rotation at 90 90 degrees Abduction Internal Rotation 40 Left Shoulder ROM WFL No Testing Position Supine Flexion 170 Abduction 175 External Rotation at 80 90 degrees Abduction Internal Rotation 25 Comments Passive ROM Shoulder Strength Shoulder Manual Muscle Testing Left Flexion 4 Good Abduction (C5) 3+ Fair+ External Rotation 5 Normal Internal Rotation 5 Normal Therapeutic Exercises Standing Exercises Elevated pushups Standing Exercise Using handrail on treadmill Name Reps/Minutes 2x10 DB scaption Resistance 5# Reps/Minutes 3x10 Elevated table shoulder airplanes Standing Exercise Transverse plane rotation over shoulder (horizontal Name abduction, closed chain Reps/Minutes 3x10 each side Comments Feet close to table Weight bearing shoulder taps Side bilateral Equipment Used table for elevation Reps/Minutes x10 each side Band Row Standing Exercise Cable column Name Side left Resistance 30# Reps/Minutes 3x10 Band IR Side left Resistance purple Equipment Used band Reps/Minutes 3x10 Band ER Side left Resistance purple Equipment Used band Reps/Minutes 3x10 Band scaption Side left Resistance 3# Equipment Used Dumbell Reps/Minutes 3x10 Comments cues for scapular mechanics Band flexion Side left Resistance 4# Equipment Used Dumbell Reps/Minutes 3x10 Physical Therapy Assessment Goals Three Impairment Gross L shoulder function Short Term Goal (STG Patient will report a GROC of 30% in order to show an ) increase in self-perceived function. In progress (11/28/2024) (15%) STG Duration 3 weeks Seasoner Hand Goal (LTG) Patient will report a GROC of 60% in order to show an increase in self-perceived function. LTG Duration 6 weeks Two Impairment L shoulder strength Short Term Goal (STG Patient will demonstrate an increase in L shoulder ) abduction strength on MMT to 4/5 in order to better function with lifting items overhead. In progress (11/28/2024) STG Duration 3 weeks Long-Term Goal (LTG) Patient will demonstrate an increase in L shoulder abduction strength on MMT to 5/5 in order to better function with lifting items overhead. LTG Duration 6 weeks One Impairment L shoulder ROM Short Term Goal (STG Patient will demonstrate an increase in L shoulder ) abduction AROM to 150 in order to better function with reaching to her side. In progress 11/28/2024 (145 degrees) STG Duration 3 weeks Long-Term Goal (LTG) Patient will demonstrate an increase in L shoulder abduction AROM to 160 in order to better function with reaching to her side. LTG Duration 6 weeks Assessment Summary Assessment Patient presenting to PT after 6 visits for L shoulder strengthening and mobility following dislocation in May 2024. Patient reported improvement with strength and general function but still feels limited by her shoulder and is still fearful for re-dislocation. Objective investigation revealed improvement but still some deficits in L shoulder ROM (see measures: flexion, abduction AROM), and strength (see measures: ER, IR). Patient will continue to benefit from PT to address remaining deficits and return to full prior level of function. Physical Therapy Plan Frequency and Duration Frequency of 2x/Week Treatment Duration of 12 treatment (weeks) Plan of Care Start 11/02/24 Date Plan of Care End 01/31/25 Date Next Visit Focus/Plan Next Note Type Treatment Note Next Visit Plan Progress strengthening as tolerated. Consider adding Access Code: [email or web address] URL: [email or web address] Date: 11/07/2024 Prepared by: Didi Abad Exercises - Standing Shoulder Flexion with Resistance - 1 x daily - 3-4 x weekly - 3 sets - 10 reps - 3 hold - Standing Shoulder Scaption with Resistance - 1 x daily - 3-4 x weekly - 3 sets - 10 reps - 3 hold - Shoulder External Rotation - 1 x daily - 3-4 x weekly - 3 sets - 10 reps - Standing Shoulder Internal Rotation with Anchored Resistance - 1 x daily - 3-4 x weekly - 3 sets - 10 reps - 3 hold - Full Plank with Scapular Protraction Retraction AROM - 1 x daily - 3-4 x weekly - 3 sets - 10 reps - 3 hold - Standing Shoulder Horizontal Adduction with Anchored Resistance - 1 x daily - 3-4 x weekly - 3 sets - 10 reps - 3 hold - Standing Single Arm Row with Resistance Thumb Up - 1 x daily - 3-4 x weekly - 3 sets - 10 reps - 3 hold
--- NOTE | 2024-12-05 10:11 | PT.OTN ---
Current Diagnoses Anterior dislocation of left humerus, subsequent encounter (12/05/24) Physical Therapy Treatment Note PT OP: Cervical/Upper Extremity Start: 11/02/24 09:42 Freq: Status: Active Protocol: Document 12/05/24 09:03 CHANDRAKANT (Rec: 12/05/24 10:09 CHANDRAKANT [id number]) Out-Patient Physical Therapy Visit Information Visit Information Visit Type Progress Note Visit Start Time 09:03 Visit Stop Time 09:45 Visit Number 8 Number of SUPERINTENDENT OPERATING Visits 0 Progress Note Due 12/28/24 OP-PT Subjective Patient Comments Patient Comments Patient reports her shoulder has been a little sore. Therapeutic Exercises Sitting Exercises Pulleys Sitting Exercise Flexion and abduction Name Reps/Minutes x20 each direction Standing Exercises Elevated pushups Standing Exercise Using handrail on treadmill Name Reps/Minutes 2x10 on treadmill HR, x10 on elevated plinth ~8 lower than TM HR Elevated table shoulder airplanes Standing Exercise Transverse plane rotation over shoulder (horizontal Name abduction, closed chain Reps/Minutes 3x10 each side Comments Feet close to table Weight bearing shoulder taps Side bilateral Equipment Used table for elevation Reps/Minutes x10 each side Band Row Standing Exercise Cable column Name Side left Resistance 40# Reps/Minutes 3x10 Ball on wall circles Resistance 3.3# ball Reps/Minutes 2x10 CW + CCW Band IR Side left Resistance purple Equipment Used band Reps/Minutes 3x10 Band ER Side left Resistance purple Equipment Used band Reps/Minutes 3x10 Band scaption Side left Resistance 4# Equipment Used Dumbell Reps/Minutes 3x10 Comments cues for scapular mechanics Band flexion Side left Resistance 5# Equipment Used Dumbell Reps/Minutes 3x10 Physical Therapy Assessment Goals Three Impairment Gross L shoulder function Short Term Goal (STG Patient will report a GROC of 30% in order to show an ) increase in self-perceived function. In progress (11/28/2024) (15%) STG Duration 3 weeks Sterile Processing Technologist Goal (LTG) Patient will report a GROC of 60% in order to show an increase in self-perceived function. LTG Duration 6 weeks Two Impairment L shoulder strength Short Term Goal (STG Patient will demonstrate an increase in L shoulder ) abduction strength on MMT to 4/5 in order to better function with lifting items overhead. In progress (11/28/2024) STG Duration 3 weeks Penitentiary Goal (LTG) Patient will demonstrate an increase in L shoulder abduction strength on MMT to 5/5 in order to better function with lifting items overhead. LTG Duration 6 weeks One Impairment L shoulder ROM Short Term Goal (STG Patient will demonstrate an increase in L shoulder ) abduction AROM to 150 in order to better function with reaching to her side. In progress 11/28/2024 (145 degrees) STG Duration 3 weeks Penitentiary Goal (LTG) Patient will demonstrate an increase in L shoulder abduction AROM to 160 in order to better function with reaching to her side. LTG Duration 6 weeks Assessment Summary Assessment Treatment focused on progressing loads with strengthening exercises. Patient tolerated increased loads and intensities well with no increases in pain levels and reported muscular fatigue near end of sets. Pulleys were added to program to address AROM deficits. Plan next session to follow up on home exercises and continue with plan of care. Physical Therapy Plan Frequency and Duration Frequency of 2x/Week Treatment Duration of 12 treatment (weeks) Plan of Care Start 11/02/24 Date Plan of Care End 01/31/25 Date Next Visit Focus/Plan Next Note Type Treatment Note Next Visit Plan Progress strengthening as tolerated. Access Code: [email or web address] URL: [email or web address] Date: 11/07/2024 Prepared by: Didi Abad Exercises - Standing Shoulder Flexion with Resistance - 1 x daily - 3-4 x weekly - 3 sets - 10 reps - 3 hold - Standing Shoulder Scaption with Resistance - 1 x daily - 3-4 x weekly - 3 sets - 10 reps - 3 hold - Shoulder External Rotation - 1 x daily - 3-4 x weekly - 3 sets - 10 reps - Standing Shoulder Internal Rotation with Anchored Resistance - 1 x daily - 3-4 x weekly - 3 sets - 10 reps - 3 hold - Full Plank with Scapular Protraction Retraction AROM - 1 x daily - 3-4 x weekly - 3 sets - 10 reps - 3 hold - Standing Shoulder Horizontal Adduction with Anchored Resistance - 1 x daily - 3-4 x weekly - 3 sets - 10 reps - 3 hold - Standing Single Arm Row with Resistance Thumb Up - 1 x daily - 3-4 x weekly - 3 sets - 10 reps - 3 hold
--- NOTE | 2024-12-13 12:21 | PT.OTN ---
Current Diagnoses Anterior dislocation of left humerus, subsequent encounter (12/13/24) Physical Therapy Treatment Note PT OP: Cervical/Upper Extremity Start: 11/02/24 09:42 Freq: Status: Active Protocol: Document 12/13/24 11:35 AB (Rec: 12/13/24 12:21 AB [id number]) Out-Patient Physical Therapy Visit Information Visit Information Visit Type Treatment Note Visit Note Visit [email or web address] Access Code: [email or web address] Visit Start Time 11:35 Visit Stop Time 12:18 Visit Number 9 Number of HOME HEALTH CARE PROVIDER Visits 1 Progress Note Due 12/28/24 OP-PT Subjective Patient Comments Patient Comments Patient reports she is getting a little better, is getting a little stronger. Therapeutic Exercises Supine Exercises cheerleaders Supine Exercise Name in hooklying Side bilateral Equipment Used level 2 band Reps/Minutes X 15 Comments Verbal cues Sitting Exercises cervical stretches Sitting Exercise UT Name Side left Reps/Minutes 60 ea with AROM rot at 60 sec Comments VC to hold chair seat Standing Exercises mini band Standing Exercise shoulder ER with flexion Name Side bilateral Resistance level one band Reps/Minutes X 10 Comments Verbal cues statue of liberty Side left Resistance Yellow therabar Reps/Minutes 30 sec Comments Verbal cues Elevated pushups Standing Exercise Using handrail on treadmill push up plus, Visual and Name tactile cues Side bilateral Reps/Minutes X 15 X 2 raised mat 2nd set hands in wanda position Comments verbal, visual and tactile cues for push up plus, monitored for pain Elevated table shoulder airplanes Standing Exercise Transverse plane rotation over shoulder (horizontal Name abduction, closed chain Reps/Minutes 10 each side Comments feet ~3 feet from table, reports tightness on L no pain Band ER at 9090 flexion Side left Equipment Used [place] band Reps/Minutes x10 Comments assist with UE positioning and vc for UT activation Weight bearing shoulder taps Side bilateral Equipment Used table for elevation Reps/Minutes x15 X 2 each side Comments Patient reports having no pain Band Row Standing Exercise Isometric reactive Name Side bilateral Resistance purple band Reps/Minutes X 15 Comments Verbal cues Ball on wall circles Standing Exercise ~90 deg scaption Name Resistance 3.3# ball Reps/Minutes 2x10 CW + CCW Comments monitored for pain Band IR Side left Resistance purple Equipment Used band Reps/Minutes 15 X 2 Comments Pt ed rationale of slow eccentric Band ER Side left Resistance purple Equipment Used band Reps/Minutes 15 X 2 Band scaption Side left Resistance 4# Equipment Used Dumbell Reps/Minutes 3x10 Comments cues for scapular mechanics Physical Therapy Assessment Goals Three Impairment Gross L shoulder function Short Term Goal (STG Patient will report a GROC of 30% in order to show an ) increase in self-perceived function. In progress (11/28/2024) (15%) STG Duration 3 weeks Bullet Lubricant Mixer Goal (LTG) Patient will report a GROC of 60% in order to show an increase in self-perceived function. LTG Duration 6 weeks Two Impairment L shoulder strength Short Term Goal (STG Patient will demonstrate an increase in L shoulder ) abduction strength on MMT to 4/5 in order to better function with lifting items overhead. In progress (11/28/2024) STG Duration 3 weeks Bullet Lubricant Mixer Goal (LTG) Patient will demonstrate an increase in L shoulder abduction strength on MMT to 5/5 in order to better function with lifting items overhead. LTG Duration 6 weeks One Impairment L shoulder ROM Short Term Goal (STG Patient will demonstrate an increase in L shoulder ) abduction AROM to 150 in order to better function with reaching to her side. In progress 11/28/2024 (145 degrees) STG Duration 3 weeks Prison Goal (LTG) Patient will demonstrate an increase in L shoulder abduction AROM to 160 in order to better function with reaching to her side. LTG Duration 6 weeks Assessment Summary Assessment Patient reports having no pain with statue of liberty or mini band standing. Added Isometric reactive row to HEP. Princess reports it feels great end of session. Physical Therapy Plan Frequency and Duration Frequency of 2x/Week Treatment Duration of 12 treatment (weeks) Plan of Care Start 11/02/24 Date Plan of Care End 01/31/25 Date Next Visit Focus/Plan Next Note Type Treatment Note Next Visit Plan Progress strengthening as tolerated. Possibly therabar statue of liberty one min vs trial of body blade yellow UE at side Access Code: [email or web address] URL: [email or web address] Date: 11/07/2024 Prepared by: Didi Abad Exercises - Standing Shoulder Flexion with Resistance - 1 x daily - 3-4 x weekly - 3 sets - 10 reps - 3 hold - Standing Shoulder Scaption with Resistance - 1 x daily - 3-4 x weekly - 3 sets - 10 reps - 3 hold - Shoulder External Rotation - 1 x daily - 3-4 x weekly - 3 sets - 10 reps - Standing Shoulder Internal Rotation with Anchored Resistance - 1 x daily - 3-4 x weekly - 3 sets - 10 reps - 3 hold - Full Plank with Scapular Protraction Retraction AROM - 1 x daily - 3-4 x weekly - 3 sets - 10 reps - 3 hold - Standing Shoulder Horizontal Adduction with Anchored Resistance - 1 x daily - 3-4 x weekly - 3 sets - 10 reps - 3 hold - Standing Single Arm Row with Resistance Thumb Up - 1 x daily - 3-4 x weekly - 3 sets - 10 reps - 3 hold
--- NOTE | 2024-12-13 12:25 | PT.OTN ---
Current Diagnoses Anterior dislocation of left humerus, subsequent encounter (12/13/24) Physical Therapy Treatment Note PT OP: Cervical/Upper Extremity Start: 11/02/24 09:42 Freq: Status: Active Protocol: Document 12/13/24 11:35 AB (Rec: 12/13/24 12:21 AB [id number]) Out-Patient Physical Therapy Visit Information Visit Information Visit Type Treatment Note Visit Note Visit [email or web address] Access Code: [email or web address] Visit Start Time 11:35 Visit Stop Time 12:18 Visit Number 9 Number of TUBE FILLER Visits 1 Progress Note Due 12/28/24 OP-PT Subjective Patient Comments Patient Comments Patient reports she is getting a little better, is getting a little stronger. Therapeutic Exercises Supine Exercises cheerleaders Supine Exercise Name in hooklying Side bilateral Equipment Used level 2 band Reps/Minutes X 15 Comments Verbal cues Sitting Exercises cervical stretches Sitting Exercise UT Name Side left Reps/Minutes 60 ea with AROM rot at 60 sec Comments VC to hold chair seat Standing Exercises mini band Standing Exercise shoulder ER with flexion Name Side bilateral Resistance level one band Reps/Minutes X 10 Comments Verbal cues statue of liberty Side left Resistance Yellow therabar Reps/Minutes 30 sec Comments Verbal cues Elevated pushups Standing Exercise Using handrail on treadmill push up plus, Visual and Name tactile cues Side bilateral Reps/Minutes X 15 X 2 raised mat 2nd set hands in wanda position Comments verbal, visual and tactile cues for push up plus, monitored for pain Elevated table shoulder airplanes Standing Exercise Transverse plane rotation over shoulder (horizontal Name abduction, closed chain Reps/Minutes 10 each side Comments feet ~3 feet from table, reports tightness on L no pain Band ER at 9090 flexion Side left Equipment Used [place] band Reps/Minutes x10 Comments assist with UE positioning and vc for UT activation Weight bearing shoulder taps Side bilateral Equipment Used table for elevation Reps/Minutes x15 X 2 each side Comments Patient reports having no pain Band Row Standing Exercise Isometric reactive Name Side bilateral Resistance purple band Reps/Minutes X 15 Comments Verbal cues Ball on wall circles Standing Exercise ~90 deg scaption Name Resistance 3.3# ball Reps/Minutes 2x10 CW + CCW Comments monitored for pain Band IR Side left Resistance purple Equipment Used band Reps/Minutes 15 X 2 Comments Pt ed rationale of slow eccentric Band ER Side left Resistance purple Equipment Used band Reps/Minutes 15 X 2 Band scaption Side left Resistance 4# Equipment Used Dumbell Reps/Minutes 3x10 Comments cues for scapular mechanics Physical Therapy Assessment Goals Three Impairment Gross L shoulder function Short Term Goal (STG Patient will report a GROC of 30% in order to show an ) increase in self-perceived function. In progress (11/28/2024) (15%) STG Duration 3 weeks Rubble Placer Goal (LTG) Patient will report a GROC of 60% in order to show an increase in self-perceived function. LTG Duration 6 weeks Two Impairment L shoulder strength Short Term Goal (STG Patient will demonstrate an increase in L shoulder ) abduction strength on MMT to 4/5 in order to better function with lifting items overhead. In progress (11/28/2024) STG Duration 3 weeks Rubble Placer Goal (LTG) Patient will demonstrate an increase in L shoulder abduction strength on MMT to 5/5 in order to better function with lifting items overhead. LTG Duration 6 weeks One Impairment L shoulder ROM Short Term Goal (STG Patient will demonstrate an increase in L shoulder ) abduction AROM to 150 in order to better function with reaching to her side. In progress 11/28/2024 (145 degrees) STG Duration 3 weeks Detention Goal (LTG) Patient will demonstrate an increase in L shoulder abduction AROM to 160 in order to better function with reaching to her side. LTG Duration 6 weeks Assessment Summary Assessment Patient reports having no pain with statue of liberty or mini band standing. Added Isometric reactive row to HEP. Princess reports it feels great end of session. Physical Therapy Plan Frequency and Duration Frequency of 2x/Week Treatment Duration of 12 treatment (weeks) Plan of Care Start 11/02/24 Date Plan of Care End 01/31/25 Date Next Visit Focus/Plan Next Note Type Treatment Note Next Visit Plan Progress strengthening as tolerated. Possibly therabar statue of liberty one min vs trial of body blade yellow UE at side Access Code: [email or web address] URL: [email or web address] Date: 11/07/2024 Prepared by: Didi Abad Exercises - Standing Shoulder Flexion with Resistance - 1 x daily - 3-4 x weekly - 3 sets - 10 reps - 3 hold - Standing Shoulder Scaption with Resistance - 1 x daily - 3-4 x weekly - 3 sets - 10 reps - 3 hold - Shoulder External Rotation - 1 x daily - 3-4 x weekly - 3 sets - 10 reps - Standing Shoulder Internal Rotation with Anchored Resistance - 1 x daily - 3-4 x weekly - 3 sets - 10 reps - 3 hold - Full Plank with Scapular Protraction Retraction AROM - 1 x daily - 3-4 x weekly - 3 sets - 10 reps - 3 hold - Standing Shoulder Horizontal Adduction with Anchored Resistance - 1 x daily - 3-4 x weekly - 3 sets - 10 reps - 3 hold - Standing Single Arm Row with Resistance Thumb Up - 1 x daily - 3-4 x weekly - 3 sets - 10 reps - 3 hold
--- NOTE | 2024-12-21 12:32 | PT.OTN ---
Current Diagnoses Anterior dislocation of left humerus, subsequent encounter (12/21/24) Physical Therapy Treatment Note PT OP: Cervical/Upper Extremity Start: 11/02/24 09:42 Freq: Status: Active Protocol: Document 12/21/24 11:44 NBM (Rec: 12/21/24 12:32 NBM Laptop) Out-Patient Physical Therapy Visit Information Visit Information Visit Type Treatment Note Visit Start Time 11:37 Visit Stop Time 12:20 Visit Number 10 Number of PRE ALGEBRA TEACHER Visits 2 Progress Note Due 12/28/24 Evaluation Information Evaluation Date 11/02/24 OP-PT Subjective Patient Comments Patient Comments Princess reports she feels that she is getting stronger. She was a little sore after last visit but not for long. She has a 3# weight at home and does exercises throughout the day. Therapeutic Exercises Sitting Exercises Pulleys Sitting Exercise Flexion and abduction Name Reps/Minutes x20 each direction cervical stretches Sitting Exercise 1. UT 2. LS 3. Scalenes Name Side left Equipment Used hold chair seat Reps/Minutes 30-45 ea Comments vc scap setting, chin tuck, form w/ 3; positive feedback response Standing Exercises statue of liberty Standing Exercise 1. D2 UE flexion 2. Statue of [place] hold Name Side left Resistance Red therabar Reps/Minutes x5, 30 sec Comments Verbal cues Band Row Standing Exercise Isometric reactive Name Side bilateral Resistance purple band Reps/Minutes X 15 Comments Verbal cues Ball on wall circles Standing Exercise ~90 deg scaption Name Resistance 3.3# ball Reps/Minutes 2x10 CW + CCW Comments monitored for pain Band IR Side left Resistance purple Equipment Used band Reps/Minutes 15 X 2 Comments Pt ed rationale of slow eccentric Band ER Side left Resistance purple Equipment Used band Reps/Minutes 15 X 2 Comments cue to increase Band scaption Side left Resistance 4# Equipment Used Dumbell Reps/Minutes 3x10 Comments cues for scapular mechanics Band flexion Side left Resistance 5# Equipment Used Dumbell Reps/Minutes 3x10 Physical Therapy Assessment Goals Three Impairment Gross L shoulder function Short Term Goal (STG Patient will report a GROC of 30% in order to show an ) increase in self-perceived function. In progress (11/28/2024) (15%) STG Duration 3 weeks [facility] Goal (LTG) Patient will report a GROC of 60% in order to show an increase in self-perceived function. LTG Duration 6 weeks Two Impairment L shoulder strength Short Term Goal (STG Patient will demonstrate an increase in L shoulder ) abduction strength on MMT to 4/5 in order to better function with lifting items overhead. In progress (11/28/2024) STG Duration 3 weeks [facility] Goal (LTG) Patient will demonstrate an increase in L shoulder abduction strength on MMT to 5/5 in order to better function with lifting items overhead. LTG Duration 6 weeks One Impairment L shoulder ROM Short Term Goal (STG Patient will demonstrate an increase in L shoulder ) abduction AROM to 150 in order to better function with reaching to her side. In progress 11/28/2024 (145 degrees) STG Duration 3 weeks [facility]fp Goal (LTG) Patient will demonstrate an increase in L shoulder abduction AROM to 160 in order to better function with reaching to her side. LTG Duration 6 weeks Assessment Summary Assessment Princess requires cues for scapular setting with chin tuck for initial exercises today but demonstrates improved self-awareness with self-correction for L UT overactivation w/ fatigue towards end of session. Reminder to pt of use of cervical stretches in HEP with review; pt has positive feedback response. Statue of [place] exercise progressed from yellow to red [place]abar , demonstrating progressing L shoulder strength, and pt demonstrates L shoulder abduction to approximately 120 degrees w/ pain at end-range. Brief discussion with pt and evaluating PT regarding goals and scheduling more visits to continue progressing strengthening; pt in agreement to schedule through mid-January and front desk clerk notified. Physical Therapy Plan Frequency and Duration Frequency of 2x/Week Treatment Duration of 12 treatment (weeks) Plan of Care Start 11/02/24 Date Plan of Care End 01/31/25 Date Next Visit Focus/Plan Next Note Type Treatment Note Next Visit Plan Progress strengthening as tolerated. Possibly therabar statue of liberty one min vs trial of body blade yellow UE at side Access Code: [email or web address] URL: [email or web address] Date: 11/07/2024 Prepared by: Didi Abad Exercises - Standing Shoulder Flexion with Resistance - 1 x daily - 3-4 x weekly - 3 sets - 10 reps - 3 hold - Standing Shoulder Scaption with Resistance - 1 x daily - 3-4 x weekly - 3 sets - 10 reps - 3 hold - Shoulder External Rotation - 1 x daily - 3-4 x weekly - 3 sets - 10 reps - Standing Shoulder Internal Rotation with Anchored Resistance - 1 x daily - 3-4 x weekly - 3 sets - 10 reps - 3 hold - Full Plank with Scapular Protraction Retraction AROM - 1 x daily - 3-4 x weekly - 3 sets - 10 reps - 3 hold - Standing Shoulder Horizontal Adduction with Anchored Resistance - 1 x daily - 3-4 x weekly - 3 sets - 10 reps - 3 hold - Standing Single Arm Row with Resistance Thumb Up - 1 x daily - 3-4 x weekly - 3 sets - 10 reps - 3 hold
--- NOTE | 2024-12-26 11:36 | PT.OTN ---
Current Diagnoses Anterior dislocation of left humerus, subsequent encounter (12/26/24) Physical Therapy Treatment Note PT OP: Cervical/Upper Extremity Start: 11/02/24 09:42 Freq: Status: Active Protocol: Document 12/26/24 10:55 NBM (Rec: 12/26/24 11:36 NBM Laptop) Out-Patient Physical Therapy Visit Information Visit Information Visit Type Treatment Note Visit Note PN due next visit. Visit Start Time 10:53 Visit Stop Time 11:34 Visit Number 11 Number of RADIO EQUIPMENT INSTALLER Visits 3 Progress Note Due 12/28/24 OP-PT Subjective Patient Comments Patient Comments Princess reports she was stiff yesterday so didn't do any of the exercises yesterday. She was able to play ball with [employer]og[employer]. She felt good after last session. Therapeutic Exercises Sitting Exercises cervical stretches Sitting Exercise HEP: 1. UT 2. LS 3. Scalenes Name Side left Equipment Used hold chair seat Reps/Minutes 30-45 ea Comments vc chin tuck, form w/ 3; positive feedback response Standing Exercises Body blade Standing Exercise at side Name Side left Reps/Minutes 30s statue of liberty Standing Exercise 1. D2 UE flexion 2. Statue of [place] hold Name Side left Resistance Red therabar Equipment Used mirror Reps/Minutes x5, 30 sec Comments tactile cues for scap setting and abd Band ER at 9090 flexion Side left Equipment Used [place] band Reps/Minutes x10 Comments initial assist with UE positioning, vc breathwork Band Row Standing Exercise 1. Isometric reactive Name Side bilateral Resistance purple band Reps/Minutes X 15 Comments Verbal cues Scapular protraction in weight bearing Standing Exercise wall pushup plus Name Side bilateral Reps/Minutes x20 Comments cues for hand positioning, head position Ball on wall circles Standing Exercise ~90 deg scaption/flex/abd Name Resistance 3.3# ball Reps/Minutes x10 ea CW + CCW, rest between position change Comments monitored for pain, consider start w/ abd next Band IR Side left Resistance purple Equipment Used band Reps/Minutes 15 X 2 Band ER Side left Resistance purple Equipment Used band Reps/Minutes 15 X 2 Comments cue to increase Band scaption Side left Resistance 5# Equipment Used Dumbell, mirror Reps/Minutes 2x10 Comments cues for UT overactivation Band flexion Side left Resistance 5# Equipment Used Dumbell, mirror Reps/Minutes x10, x5 dc'd d/t pain at UT insertion Comments L UT pain resolves w/ cues for cervical stretches Physical Therapy Assessment Goals Three Impairment Gross L shoulder function Short Term Goal (STG Patient will report a GROC of 30% in order to show an ) increase in self-perceived function. In progress (11/28/2024) (15%) STG Duration 3 weeks Shelter Goal (LTG) Patient will report a GROC of 60% in order to show an increase in self-perceived function. LTG Duration 6 weeks Two Impairment L shoulder strength Short Term Goal (STG Patient will demonstrate an increase in L shoulder ) abduction strength on MMT to 4/5 in order to better function with lifting items overhead. In progress (11/28/2024) STG Duration 3 weeks Fiscal Clerk Goal (LTG) Patient will demonstrate an increase in L shoulder abduction strength on MMT to 5/5 in order to better function with lifting items overhead. LTG Duration 6 weeks One Impairment L shoulder ROM Short Term Goal (STG Patient will demonstrate an increase in L shoulder ) abduction AROM to 150 in order to better function with reaching to her side. In progress 11/28/2024 (145 degrees) STG Duration 3 weeks Fiscal Clerk Goal (LTG) Patient will demonstrate an increase in L shoulder abduction AROM to 160 in order to better function with reaching to her side. LTG Duration 6 weeks Assessment Summary Assessment Princess requires further education to utilize cervical stretches for shoulder tightness and L Upper trapezius m. pain w/ 5# L shoulder flexion, with positive feedback response and pain resolution when cued. Physical Therapy Plan Frequency and Duration Frequency of 2x/Week Treatment Duration of 12 treatment (weeks) Plan of Care Start 11/02/24 Date Plan of Care End 01/31/25 Date Next Visit Focus/Plan Next Note Type Treatment Note Next Visit Plan PN due next visit. Progress strengthening as tolerated. Possibly therabar statue of liberty one min vs trial of body blade yellow UE at side Access Code: [email or web address] URL: [email or web address] Date: 11/07/2024 Prepared by: Didi Abad Exercises - Standing Shoulder Flexion with Resistance - 1 x daily - 3-4 x weekly - 3 sets - 10 reps - 3 hold - Standing Shoulder Scaption with Resistance - 1 x daily - 3-4 x weekly - 3 sets - 10 reps - 3 hold - Shoulder External Rotation - 1 x daily - 3-4 x weekly - 3 sets - 10 reps - Standing Shoulder Internal Rotation with Anchored Resistance - 1 x daily - 3-4 x weekly - 3 sets - 10 reps - 3 hold - Full Plank with Scapular Protraction Retraction AROM - 1 x daily - 3-4 x weekly - 3 sets - 10 reps - 3 hold - Standing Shoulder Horizontal Adduction with Anchored Resistance - 1 x daily - 3-4 x weekly - 3 sets - 10 reps - 3 hold - Standing Single Arm Row with Resistance Thumb Up - 1 x daily - 3-4 x weekly - 3 sets - 10 reps - 3 hold
--- NOTE | 2024-12-29 10:32 | PT.OPPN ---
Current Diagnoses Anterior dislocation of left humerus, subsequent encounter (12/29/24) Physical Therapy Progress Note PT OP: Cervical/Upper Extremity Start: 11/02/24 09:42 Freq: Status: Active Protocol: Document 12/29/24 09:29 JKal (Rec: 12/29/24 10:31 JKal [id number]) Out-Patient Physical Therapy Visit Information Visit Information Visit Type Progress Note Visit Start Time 09:50 Visit Stop Time 10:30 Visit Number 12 Number of APPOINTMENT MANAGER Visits 0 Progress Note Due 01/28/25 OP-PT Subjective Patient Comments Patient Comments Patient reports she feels she is doing well overall. She notes improvement with her shoulder strengthening. She reports her GROC is about 80% with the remaining 20 % made up of some soreness around her shoulder at times and some feeling of instability. Shoulder Goniometric Range of Motion Shoulder Measured in Degrees L active Shoulder ROM WFL Yes Testing Position Supine Flexion 170 Abduction 170 Therapeutic Exercises Sitting Exercises Pulleys Sitting Exercise Flexion and abduction Name Reps/Minutes x20 each direction Standing Exercises Abduction AROM Reps/Minutes 2x10 Comments Slow through 90-170 degree range Elevated pushups Standing Exercise Using handrail on treadmill push up plus, Visual and Name tactile cues Side bilateral Elevated table shoulder airplanes Standing Exercise Transverse plane rotation over shoulder (horizontal Name abduction, closed chain Reps/Minutes 2x10 each side Weight bearing shoulder taps Side bilateral Equipment Used table for elevation Comments Patient reports having no pain Band IR Side left Resistance purple Equipment Used band Reps/Minutes 3x10 Band ER Side left Resistance purple Equipment Used band Reps/Minutes 3x10 Band scaption Side left Resistance 5# Equipment Used Dumbell Reps/Minutes 2x10, 1x15 Band flexion Side left Resistance 5# Equipment Used Dumbell Reps/Minutes 2x10 Physical Therapy Assessment Goals Three Impairment Gross L shoulder function Short Term Goal (STG Patient will report a GROC of 30% in order to show an ) increase in self-perceived function. Met (12/29/2024) STG Duration 3 weeks Manager Of Broadcast Content Goal (LTG) Patient will report a GROC of 60% in order to show an increase in self-perceived function. Met (12/29/2024) LTG Duration 6 weeks Two Impairment L shoulder strength Short Term Goal (STG Patient will demonstrate an increase in L shoulder ) abduction strength on MMT to 4/5 in order to better function with lifting items overhead. In progress (11/28/2024) Met 12/29/2024 STG Duration 3 weeks Long-Term Goal (LTG) Patient will demonstrate an increase in L shoulder abduction strength on MMT to 5/5 in order to better function with lifting items overhead. In progress (12/29/2024) LTG Duration 6 weeks One Impairment L shoulder ROM Short Term Goal (STG Patient will demonstrate an increase in L shoulder ) abduction AROM to 150 in order to better function with reaching to her side. In progress 11/28/2024 (145 degrees) Met 12/29/2024 (170 degrees) STG Duration 3 weeks Manager Of Broadcast Content Goal (LTG) Patient will demonstrate an increase in L shoulder abduction AROM to 160 in order to better function with reaching to her side. Met 12/29/2024 (170 degrees) LTG Duration 6 weeks Assessment Summary Assessment Patient presenting to PT after 11 visits for L shoulder strengthening and mobility following dislocation in May 2024. Patient reported improvement with strength and general function but still is limited by stiffness and some weakness in her shoulder. Objective investigation revealed improvement in L shoulder ROM ( see measures: abduction AROM), and strength (see measures: abduction). Patient will continue to benefit from PT to address remaining deficits and return to full prior level of function. Physical Therapy Plan Frequency and Duration Frequency of 2x/Week Treatment Duration of 12 treatment (weeks) Plan of Care Start 11/02/24 Date Plan of Care End 01/31/25 Date Next Visit Focus/Plan Next Note Type Treatment Note Next Visit Plan Progress strengthening as tolerated. Continue with particular focus on weight-bearing compound strengthening through involved UE. Access Code: [email or web address] URL: [email or web address] Date: 11/07/2024 Prepared by: Didi Abad Exercises - Standing Shoulder Flexion with Resistance - 1 x daily - 3-4 x weekly - 3 sets - 10 reps - 3 hold - Standing Shoulder Scaption with Resistance - 1 x daily - 3-4 x weekly - 3 sets - 10 reps - 3 hold - Shoulder External Rotation - 1 x daily - 3-4 x weekly - 3 sets - 10 reps - Standing Shoulder Internal Rotation with Anchored Resistance - 1 x daily - 3-4 x weekly - 3 sets - 10 reps - 3 hold - Full Plank with Scapular Protraction Retraction AROM - 1 x daily - 3-4 x weekly - 3 sets - 10 reps - 3 hold - Standing Shoulder Horizontal Adduction with Anchored Resistance - 1 x daily - 3-4 x weekly - 3 sets - 10 reps - 3 hold - Standing Single Arm Row with Resistance Thumb Up - 1 x daily - 3-4 x weekly - 3 sets - 10 reps - 3 hold
--- NOTE | 2025-01-05 11:31 | PT.OTN ---
Current Diagnoses Anterior dislocation of left humerus, subsequent encounter (01/05/25) Physical Therapy Treatment Note PT OP: Cervical/Upper Extremity Start: 11/02/24 09:42 Freq: Status: Active Protocol: Document 01/05/25 10:54 JZ (Rec: 01/05/25 11:30 JZ [id number]) Out-Patient Physical Therapy Visit Information Visit Information Visit Type Treatment Note Visit Start Time 10:50 Visit Stop Time 11:30 Visit Number 13 Number of ZIG ZAG STITCHER Visits 0 Progress Note Due 01/28/25 OP-PT Subjective Patient Comments Patient Comments Patient reports she did not do her home exercises yesterday. Therapeutic Exercises Standing Exercises Abduction AROM Reps/Minutes 2x10 Comments Slow through 90-170 degree range Elevated pushups Standing Exercise Using handrail on treadmill push up plus, Visual and Name tactile cues Side bilateral Reps/Minutes 3x10 Elevated table shoulder airplanes Standing Exercise Transverse plane rotation over shoulder (horizontal Name abduction, closed chain Reps/Minutes 2x10 each side Band IR Side left Resistance purple Equipment Used band Reps/Minutes 3x10 Band ER Side left Resistance purple Equipment Used band Reps/Minutes 3x10 Band scaption Side left Resistance 3# Equipment Used Dumbell Reps/Minutes 3x10 Band flexion Side left Resistance 5# Equipment Used Dumbell Reps/Minutes 2x10 Physical Therapy Assessment Goals Three Impairment Gross L shoulder function Short Term Goal (STG Patient will report a GROC of 30% in order to show an ) increase in self-perceived function. Met (12/29/2024) STG Duration 3 weeks Longterm Goal (LTG) Patient will report a GROC of 60% in order to show an increase in self-perceived function. Met (12/29/2024) LTG Duration 6 weeks Two Impairment L shoulder strength Short Term Goal (STG Patient will demonstrate an increase in L shoulder ) abduction strength on MMT to 4/5 in order to better function with lifting items overhead. In progress (11/28/2024) Met 12/29/2024 STG Duration 3 weeks Longterm Goal (LTG) Patient will demonstrate an increase in L shoulder abduction strength on MMT to 5/5 in order to better function with lifting items overhead. In progress (12/29/2024) LTG Duration 6 weeks One Impairment L shoulder ROM Short Term Goal (STG Patient will demonstrate an increase in L shoulder ) abduction AROM to 150 in order to better function with reaching to her side. In progress 11/28/2024 (145 degrees) Met 12/29/2024 (170 degrees) STG Duration 3 weeks Longterm Goal (LTG) Patient will demonstrate an increase in L shoulder abduction AROM to 160 in order to better function with reaching to her side. Met 12/29/2024 (170 degrees) LTG Duration 6 weeks Assessment Summary Assessment Treatment focused on progressing shoulder strengthening . Patient tolerated treatment well with no increases in pain levels and reported muscular fatigue at end of sets. She was able to complete pushups from lower table today, indicating progress. Plan next session to follow up on home exercises and progress loading as appropriate. Physical Therapy Plan Frequency and Duration Frequency of 2x/Week Treatment Duration of 12 treatment (weeks) Plan of Care Start 11/02/24 Date Plan of Care End 01/31/25 Date Next Visit Focus/Plan Next Note Type Treatment Note Next Visit Plan Progress strengthening as tolerated. Continue with particular focus on weight-bearing compound strengthening through involved UE. Access Code: [email or web address] URL: [email or web address] Date: 11/07/2024 Prepared by: Didi Abad Exercises - Standing Shoulder Flexion with Resistance - 1 x daily - 3-4 x weekly - 3 sets - 10 reps - 3 hold - Standing Shoulder Scaption with Resistance - 1 x daily - 3-4 x weekly - 3 sets - 10 reps - 3 hold - Shoulder External Rotation - 1 x daily - 3-4 x weekly - 3 sets - 10 reps - Standing Shoulder Internal Rotation with Anchored Resistance - 1 x daily - 3-4 x weekly - 3 sets - 10 reps - 3 hold - Full Plank with Scapular Protraction Retraction AROM - 1 x daily - 3-4 x weekly - 3 sets - 10 reps - 3 hold - Standing Shoulder Horizontal Adduction with Anchored Resistance - 1 x daily - 3-4 x weekly - 3 sets - 10 reps - 3 hold - Standing Single Arm Row with Resistance Thumb Up - 1 x daily - 3-4 x weekly - 3 sets - 10 reps - 3 hold
--- NOTE | 2025-01-23 15:33 | PT.OTN ---
Current Diagnoses Anterior dislocation of left humerus, subsequent encounter (01/23/25) Physical Therapy Treatment Note PT OP: Cervical/Upper Extremity Start: 11/02/24 09:42 Freq: Status: Active Protocol: Document 01/23/25 14:36 JKal (Rec: 01/23/25 15:33 JKal [id number]) Out-Patient Physical Therapy Visit Information Visit Information Visit Type Treatment Note Visit Start Time 10:50 Visit Stop Time 11:30 Visit Number 14 Number of MORTAR MIXER Visits 0 Progress Note Due 01/28/25 OP-PT Subjective Patient Comments Patient Comments Patient reports her shoulder has been feeling good. Therapeutic Exercises Supine Exercises Supine horizontal DB press Resistance 8# Reps/Minutes 3x10 Standing Exercises Abduction AROM Reps/Minutes 2x10 Comments Slow through 90-170 degree range Elevated pushups Standing Exercise Using handrail on treadmill push up plus, Visual and Name tactile cues Side bilateral Reps/Minutes 3x10 Elevated table shoulder airplanes Standing Exercise Transverse plane rotation over shoulder (horizontal Name abduction, closed chain Reps/Minutes 2x10 each side Band IR Side left Resistance purple Equipment Used band Reps/Minutes 3x10 Band ER Side left Resistance purple Equipment Used band Reps/Minutes 3x10 Band scaption Side left Resistance 3# Equipment Used Dumbell Reps/Minutes 3x10 Band flexion Side left Resistance 4# Equipment Used Dumbell Reps/Minutes 2x10 Physical Therapy Assessment Goals Three Impairment Gross L shoulder function Short Term Goal (STG Patient will report a GROC of 30% in order to show an ) increase in self-perceived function. Met (12/29/2024) STG Duration 3 weeks Trimmer And Borer Machine Operator Goal (LTG) Patient will report a GROC of 60% in order to show an increase in self-perceived function. Met (12/29/2024) LTG Duration 6 weeks Two Impairment L shoulder strength Short Term Goal (STG Patient will demonstrate an increase in L shoulder ) abduction strength on MMT to 4/5 in order to better function with lifting items overhead. In progress (11/28/2024) Met 12/29/2024 STG Duration 3 weeks Trimmer And Borer Machine Operator Goal (LTG) Patient will demonstrate an increase in L shoulder abduction strength on MMT to 5/5 in order to better function with lifting items overhead. In progress (12/29/2024) LTG Duration 6 weeks One Impairment L shoulder ROM Short Term Goal (STG Patient will demonstrate an increase in L shoulder ) abduction AROM to 150 in order to better function with reaching to her side. In progress 11/28/2024 (145 degrees) Met 12/29/2024 (170 degrees) STG Duration 3 weeks Trimmer And Borer Machine Operator Goal (LTG) Patient will demonstrate an increase in L shoulder abduction AROM to 160 in order to better function with reaching to her side. Met 12/29/2024 (170 degrees) LTG Duration 6 weeks Assessment Summary Assessment Treatment focused on continued shoulder strengthening. Patient tolerated treatment well with no increases in pain. Plan next session to progress loading as tolerated and discuss plan of care moving forward. Physical Therapy Plan Frequency and Duration Frequency of 2x/Week Treatment Duration of 12 treatment (weeks) Plan of Care Start 11/02/24 Date Plan of Care End 01/31/25 Date Next Visit Focus/Plan Next Note Type Treatment Note Next Visit Plan Progress strengthening as tolerated. Continue with particular focus on weight-bearing compound strengthening through involved UE. Access Code: [email or web address] URL: [email or web address] Date: 11/07/2024 Prepared by: Didi Abad Exercises - Standing Shoulder Flexion with Resistance - 1 x daily - 3-4 x weekly - 3 sets - 10 reps - 3 hold - Standing Shoulder Scaption with Resistance - 1 x daily - 3-4 x weekly - 3 sets - 10 reps - 3 hold - Shoulder External Rotation - 1 x daily - 3-4 x weekly - 3 sets - 10 reps - Standing Shoulder Internal Rotation with Anchored Resistance - 1 x daily - 3-4 x weekly - 3 sets - 10 reps - 3 hold - Full Plank with Scapular Protraction Retraction AROM - 1 x daily - 3-4 x weekly - 3 sets - 10 reps - 3 hold - Standing Shoulder Horizontal Adduction with Anchored Resistance - 1 x daily - 3-4 x weekly - 3 sets - 10 reps - 3 hold - Standing Single Arm Row with Resistance Thumb Up - 1 x daily - 3-4 x weekly - 3 sets - 10 reps - 3 hold
--- NOTE | 2025-01-25 10:32 | PT.OTN ---
Current Diagnoses Anterior dislocation of left humerus, subsequent encounter (01/25/25) Physical Therapy Treatment Note PT OP: Cervical/Upper Extremity Start: 11/02/24 09:42 Freq: Status: Active Protocol: Document 01/25/25 09:49 JZ (Rec: 01/25/25 10:32 JZ [id number]) Out-Patient Physical Therapy Visit Information Visit Information Visit Type Treatment Note Visit Start Time 09:50 Visit Stop Time 10:30 Visit Number 15 Number of INTERNATIONAL COORDINATOR Visits 0 Progress Note Due 01/28/25 OP-PT Subjective Patient Comments Patient Comments Patient reports her shoulder was not sore after last session. She is feeling good about where she is at in her progression and is comfortable with next week being her last in PT. Therapeutic Exercises Supine Exercises Supine horizontal DB press Resistance 10# Reps/Minutes 3x10 Standing Exercises Dumbell abduction Resistance 4# Reps/Minutes 3x10 Abduction AROM Reps/Minutes x15 Comments Slow through 90-170 degree range Body blade Standing Exercise at side Name Side left Reps/Minutes 4x30s Elevated pushups Standing Exercise Using handrail on treadmill push up plus, Visual and Name tactile cues Side bilateral Reps/Minutes 3x10 Elevated table shoulder airplanes Standing Exercise Transverse plane rotation over shoulder (horizontal Name abduction, closed chain Reps/Minutes 2x10 each side Band IR Side left Resistance purple Equipment Used band Reps/Minutes 3x10 Band ER Side left Resistance purple Equipment Used band Reps/Minutes 3x10 Band flexion Side left Resistance 5# Equipment Used Dumbell Reps/Minutes 3x10 Physical Therapy Assessment Goals Three Impairment Gross L shoulder function Short Term Goal (STG Patient will report a GROC of 30% in order to show an ) increase in self-perceived function. Met (12/29/2024) STG Duration 3 weeks Child Care Leader Goal (LTG) Patient will report a GROC of 60% in order to show an increase in self-perceived function. Met (12/29/2024) LTG Duration 6 weeks Two Impairment L shoulder strength Short Term Goal (STG Patient will demonstrate an increase in L shoulder ) abduction strength on MMT to 4/5 in order to better function with lifting items overhead. In progress (11/28/2024) Met 12/29/2024 STG Duration 3 weeks Child Care Leader Goal (LTG) Patient will demonstrate an increase in L shoulder abduction strength on MMT to 5/5 in order to better function with lifting items overhead. In progress (12/29/2024) LTG Duration 6 weeks One Impairment L shoulder ROM Short Term Goal (STG Patient will demonstrate an increase in L shoulder ) abduction AROM to 150 in order to better function with reaching to her side. In progress 11/28/2024 (145 degrees) Met 12/29/2024 (170 degrees) STG Duration 3 weeks Child Care Leader Goal (LTG) Patient will demonstrate an increase in L shoulder abduction AROM to 160 in order to better function with reaching to her side. Met 12/29/2024 (170 degrees) LTG Duration 6 weeks Assessment Summary Assessment Treatment focused on progressing shoulder strengthening . Patient tolerated treatment well with no increases in pain. She was able to complete loaded full abduction today with no pain, indicating progress. Plan next session to progress loading as tolerated and discharge patient at the end of next week. Physical Therapy Plan Frequency and Duration Frequency of 2x/Week Treatment Duration of 12 treatment (weeks) Plan of Care Start 11/02/24 Date Plan of Care End 01/31/25 Date Next Visit Focus/Plan Next Note Type Treatment Note Next Visit Plan Progress strengthening as tolerated. Continue with particular focus on weight-bearing compound strengthening through involved UE. Continue with PT for two more visits then discharged with HEP.
--- NOTE | 2025-02-02 13:07 | PT.OPDS ---
Current Diagnoses Anterior dislocation of left humerus, subsequent encounter (01/25/25) Visit Care Team Role Provider Type SHARONA Colbert Family Provider Advanced Sand Caster Primary Care Provider Specialty: Medical Address: [address] [place] [address], [id number] Email: [email or web address] Perkins MD Attending Provider Physician Referring Provider Specialty: Orthopedics Orthopedic Surgery Address: [address] [place] [address], [id number] Email: [email or web address] Visit Number Visit Number 15 Discharge Summary PT OP: Cervical/Upper Extremity Start: 11/02/24 09:42 Freq: Status: Active Protocol: Document 02/02/25 13:04 CHANDRAKANT (Rec: 02/02/25 13:06 CHANDRAKANT [id number]) Out-Patient Physical Therapy Visit Information Visit Information Visit Type Discharge Summary Physical Therapy Assessment Assessment Summary Assessment Patient cancelled her remaining visits and has not scheduled any more in the future. Per plan to discharge from last note, episode of care will discharged on this date.
== END 2025-02-13 10:04 | disposition home or self-care (01) ==
LOC: PHYS 09:45
PROVIDERS: Family Provider Registered Nurse Diabetes Educator; PCP Registered Nurse Diabetes Educator; Referring Provider Orthopaedic Surgery; Visit Provider Orthopaedic Surgery
DX: S43.015D Anterior dislocation of left humerus, subsequent encounter (principal)
CPT/HCPCS: 97110; 97161; 97530; 97535